=== PATIENT | male | born 1955 | race Caucasian/White ===

== ENCOUNTER → 2020-08-11 08:25 | Outpatient (BNVA) | payer OTHER, SELFPAY | PROVIDERS: Family Provider Emergency Medicine Emergency Medical Services; Referring Provider Emergency Medicine Emergency Medical Services; Visit Provider Orthopaedic Surgery | DX: M54.9 Dorsalgia, unspecified (principal); M25.559 Pain in unspecified hip; M43.16 Spondylolisthesis, lumbar region | CPT/HCPCS: 72110; 73502 ==

== ENCOUNTER → 2020-08-24 11:47 | Outpatient (BNVA) | payer OTHER, SELFPAY | PROVIDERS: Family Provider Emergency Medicine Emergency Medical Services; Visit Provider Orthopaedic Surgery | DX: Z01.812 Encounter for preprocedural laboratory examination (principal); Z20.822 Contact with and (suspected) exposure to COVID-19 | CPT/HCPCS: 87635 ==

== ENCOUNTER 2020-08-28 16:34 | Inpatient (IN) | payer OTHER, SELFPAY ==
--- NOTE | 2020-08-24 14:02 | ECG_ITS ---
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 Measurements Intervals [place] Rate: 73 P: 29 [place]: 177 QRS: 20 QRSD: 105 T: 3 QT: 365 QTc: 404 Interpretive Statements SINUS RHYTHM WITH FREQUENT SUPRAVENTRICULAR PREMATURE COMPLEXES POSSIBLE INFERIOR MYOCARDIAL INFARCTION [30 ms Q WAVE IN II/aVF], PROBABLY OLD ABNORMAL RHYTHM ECG No previous ECG available for comparison Electronically Signed On 08-27-2020 7:23:53 CDT by Melissa Valderrama M.D. [id number]
[2020-08-24 14:10] VITALS: BMI 35.2
--- NOTE | 2020-08-24 14:52 | ANES.PREANE2 ---
Pre-Anesthetic Assessment Pre-Anesthetic Assessment: Height/Weight: Height 1.68 m Weight 98.883 kg Proposed Procedure: Operation Date: 08/28/20 10:40 Proposed Procedures p PLIF L4/5 41793, 77700, 33944, 61763, 04610, 58818 M43.16(Not Applicable) - Luis Humphreys, DO Was Beta Rizwana taken within 24 hours: Yes Was Clonidine taken within 24 hours: N/A Social: Social History: No alcohol and No tobacco Exam: Pre-Anes Outpt Exam: alert, oriented x 3 and clear to auscultation bilaterally Airway: Submandibular: WNL Cervical ROM: WNL MP: 2 Dentition: Chipped Additional comments: Missing several CV/HEM: CV/HEM: CAD (stents) and HTN Metabolic: Metabolic: Hyperlipidemia and Morbid obesity Anesthetic Plan: ASA status: 3 Anesthesia: General Risk of > 500 ml blood loss (7ml/kg in children): No Data Anesthesia Cardiac Studies: No Data to Display
[2020-08-24 15:40] LABS: Basophils % 0.4 %; Eosinophils # 0.1 10^3/uL (0.0-0.8); Eosinophils % 1.5 %; Hemoglobin 15.2 g/dL (11.7-16.6); Lymphocytes % 27.4 %; Mean Corpuscular HGB Conc 34.5 g/dL (30.0-36.0); Mean Corpuscular Hemoglobin 32.7 pg (28.0-34.0); Mean Corpuscular Volume 94.6 fL (80-94); Mean Platelet Volume 11.9 fL (7.4-10.4); Monocytes # 0.7 10^3/uL (0.2-0.9); Monocytes % 9.4 %; Neutrophils # 4.49 10^3/uL (1.8-7.7); Neutrophils % 61.2 %; Nucleated Red Blood Cells % 0 %; Platelet Count 168 10^3/cmm (130-400); Red Blood Count 4.65 10^6/uL (4.1-5.3); Red Cell Distribution Width 13.5 % (12.1-15.1); White Blood Count 7.3 10^3/uL (4.0-10.0)
[2020-08-28] VITALS (15 sets, daily range): BP systolic 113–192; BP diastolic 53–84; PULSE 49–84; RESP 16–26; TEMP 36.1–36.5; O2SAT 92–96
--- NOTE | 2020-08-28 | SCC_ITS ---
Procedure Done: 1. L4/5 Interbody fusion with posterolateral fusion 2. Instrumentation L4/5 3. Cage at L4/5 4. Laminectomy L4 5. use of autograft from same incision 6. allograft 7. Bone marrow aspirate from right iliac crest 8. Computer navigation stereotactic spine Fluoroscopic guidance was provided to Dr. Humphreys by the radiology department. C-arm images of the lumbar spine were saved for the patient's permanent record. VELMA
[2020-08-28] MEDS: sodium chloride 0.9% 1,000 ML 30 ML IV (09:05)
--- NOTE | 2020-08-28 09:35 | P.ANESUD_ITS ---
Pre-Anesthetic Update Pre-Anesthetic Assessment: Date of Surgery/Procedure: 08/28/20 Preop Lorena gnosis: spondylolisthesis Proposed Procedure: Operation Date: 08/28/20 10:40 Proposed Procedures p PLIF L4/5 30605, 55374, 50087, 34648, 69515, 61682 M43.16(Not Applicable) - Luis Humphreys, DO Any changes to Pre-Anesthetic Assessment?: No Last Intake: Intake Last Liquid Date 08/27/20 Last Liquid Time 00:00 Last Solid Date 08/27/20 Last Solid Time 18:00 Vitals: Temperature 97 F L 08/28/20 08:52 Temperature Source Temporal Artery S can 08/28/20 08:52 Pulse Rate 49 L 08/28/20 08:52 Respiratory Rate 18 08/28/20 08:52 Blood Pressure 192/84 08/28/20 08:52 Blood Pressure Fallon n 120 08/28/20 08:52 Pulse Oximetry 96 08/28/20 08:52 Oxygen Delivery Me thod 08/28/20 08:52 Exam: Pre-Anes Outpt Exam: alert, oriented x 3, clear to auscultation bilaterally and regular rate & rhythm Cardiac Studies: No Data to Display
--- NOTE | 2020-08-28 10:58 | W.PM.OPSUD ---
Surgery/Procedure H&P Update DATE OF PROCEDURE: August 28, 2020 DATE H&P PERFORMED: 08/11/20 H&P UPDATE INFORMATION: I have reviewed H&P completed within last 30 days, I have examined patient prior to procedure and No changes to prior documentation PREOP DIAGNOSIS: spondylolisthesis PLANNED PROCEDURE: Operation Date: 08/28/20 10:40 Proposed Procedures p PLIF L4/5 57404, 24154, 96425, 91611, 34963, 40808 M43.16(Not Applicable) - Luis Humphreys DO
[2020-08-28] MEDS: vancomycin 1,000 MG SDV 1000 MG XX (13:01)
[2020-08-28] MEDS: heparin, porcine 1,000 unit/mL INJ 10 mL 10000 UNIT IRRIGATION (13:02)
[2020-08-28] MEDS: thrombin 5,000 unit SDV 5000 UNIT XX (14:39)
--- NOTE | 2020-08-28 15:59 | XR_ITS ---
WS: [id number] C-ARM RADIOGRAPHS lumbar spine; 1 IMAGES HISTORY: LUMBAR PAIN COMPARISON: None available. Intraoperative imaging during fusion. Posterior fusion hardware at L4-5 with interbody spacer. Only a single image submitted. XR/XR lumbar spine 1V 12847 IMPRESSION: Intraoperative imaging during posterior lumbar fusion.
--- NOTE | 2020-08-28 16:05 | PM.OP ---
Operative Report Date of procedure: August 28, 2020 Pre-op Diagnosis: spondylolisthesis L4/5 Post-op diagnosis: same Procedure Done: 1. L4/5 Interbody fusion with posterolateral fusion 2. Instrumentation L4/5 3. Cage at L4/5 4. Laminectomy L4 5. use of autograft from same incision 6. allograft 7. Bone marrow aspirate from right iliac crest 8. Computer navigation stereotactic spine Surgeon: Luis Humphreys Anesthesia: General Estimated blood loss (mL): 300 Condition: stable Disposition: PACU Procedure: 1. L4/5 Interbody fusion with posterolateral fusion 2. Instrumentation L4/5 3. Cage at L4/5 4. Laminectomy L4 5. use of autograft from same incision 6. allograft 7. Bone marrow aspirate from right iliac crest 8. Computer navigation stereotactic spine Patient is brought to the operative suite. After undergoing anesthesia, the patient had neuro monitoring attached. Patient was then placed in the prone position on the Kaleb table. All areas of impingement were well-padded. Patient was then prepped and draped in the normal sterile fashion. Skin incision was then made over the L4/5 space. Subperiosteal dissection was made out to the transverse processes of L4 and L5. Once the exposure was complete attention was then brought to placing the fiducial for the computer navigation. The 2 pins were placed into the right iliac crest. Once the pins were placed then the fiducial was attached and turned on and went to the computer navigation system. Then the C-arm was brought in and information was loaded into the computer as well this is what was used during the case to navigate the screws. Prior to placing the pedicle screws the Quikey bone marrow aspirate kit was used to aspirate bone marrow aspirate from the right iliac crest. This was done by using the sharp probe to open up the bone. Aspiration was performed and then the blunt probe was then used to dissect down to through the bone tunnel. An aspirating well drawn back a millimeter approximately 20 cc of bone marrow aspirate was used. Admixed with the allograft and autograft bone that will be used. The technique for placing the pedicle screws was to use a drill followed by the gearshift probe used for computer navigation. Followed by the ball probe to feel the superior inferior medial lateral campos of the pedicles. Then placement of the screws using computer navigation. Was done at each pedicle. Screws were placed at L4 bilaterally and L5 bilaterally. Next attention was brought to performing the laminectomy ofL L4. This was done using the high-speed bur Kerrisons and curettes. Once the lamina was removed and then attention was brought to performing a partial facetectomy on the contralateral side. This was done again using the high-speed bur curettes and Kerrisons. The ligamentum flavum was taken down bilaterally from L4 to L5. Attention was then brought to the facet on the ipsilateral side. The facet was taken down. The L5 nerve was decompressed as it passed around the L5 pedicle. The laminectomy was done for purposes of decompressing the nerve as well as placement of the cage. The L5 nerve was identified as it traversed through the L4/5 foramen. The thecal sac was identified and retracted. The L4/5 disc base was identified. Using a knife the disc base was opened. And then sequential carleen were placed. The first shaver was a 6 and the last shaver was a 10. Using a pituitary and down going curette the endplates were scraped and disc material was removed from the space. Once adequate decompression of the disc base was felt to be had. Osteoamp sponge was packed into the anterior aspect of the disc base. Then a size 10 cage from Luis Felipe was placed after packing osteoamp into the cage. While placing the cage the thecal sac and L5 nerve was protected. C arm was used to ensure that the cages placed in the appropriate position. Attention was then brought to attaching the rods to the screws placed in the L4 to L5 bilaterally. Caps were torqued into position. Locking the construct in place. Wound was copiously irrigated and then attention was brought to decorticating the facets and transverse processes laterally. Bone that was taken down from the lamina was used along with osteoamp fibers and sponges were packed into the lateral gutters along the facet joints. This was done bilaterally. Wound was then closed in a layered fashion starting with the thoracolumbar fascia. 0-stratafix was used the sub cutaneous tissue was closed with 2-0 stratafix and skin with 3-0 nylon. Glue was then used to seal the skin and a steril Silverlon dressing was applied. Patient was then placed in the supine position. The endotracheal tube was removed and patient was transferred to the PACU in stable condition.
[2020-08-28] MEDS: ondansetron 2 mg/ML SDV 2 mL 4 MG IVP (16:45)
--- NOTE | 2020-08-28 17:09 | ECG_ITS ---
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 Measurements Intervals [place] Rate: 79 P: 42 NM: 177 QRS: -6 QRSD: 109 T: -12 QT: 433 QTc: 498 Interpretive Statements SINUS RHYTHM WITH FREQUENT VENTRICULAR PREMATURE COMPLEXES IN A BIGEMINAL PATTERN LEFT VENTRICULAR HYPERTROPHY AND ST-T CHANGE [VOLTAGE CRITERIA PLUS ST/T ABNORMALITY] INFERIOR MYOCARDIAL INFARCTION [40+ ms Q WAVE AND/OR ST/T ABNORMALITY IN II/aVF], OF INDETERMINATE AGE Compared to ECG 08/24/2020 14:24:37 Ventricular premature complex(es) now present Left ventricular hypertrophy now present ST (T wave) deviation now present Myocardial infarct finding still present Electronically Signed On 09-04-2020 6:20:04 CDT by Melissa Valderrama M.D. [id number]
--- NOTE | 2020-08-28 17:14 | ANE.PACU2 ---
Inpatient post-anesthesia follow up: Airway intact: Yes Vital signs: Temperature 97.6 F Pulse Rate 76 Respiratory Rate 18 Blood Pressure 124/53 Pulse Oximetry 96 Oxygen Delivery Me thod Room Air Oxygen Flow Rate 8 Fraction of Inspir ed Oxygen Hydration adequate: Yes Nausea and vomiting: No Pain level: 3 Mental status: Baseline
--- NOTE | 2020-08-28 17:34 | P.CONIM_ITS ---
Providers/Reason For Consult Consulting Physician/Specialty*: Orthopedic Reason for Consult*: Chest pain Attending Physician: Luis Humphreys DO Primary Care Provider: Richard Forde DO History of Present Illness History of Present Illness Deven Brennan is a 65 year old male with a past medical history of CAD status post stenting x7, history of CHF, tells me that he has lost 30% of his heart function, had a negative stress test in [place] a year ago, hypertension, hyperlipidemia, extensive family history of CAD who presents to [facility] for back pain status post L4-L5 interbody fusion by Dr. Humphreys. Postoperatively on the second floor the hospital patient developed substernal chest pain radiating to down to both arms thus hospitalist team was called for consult. During my evaluation, patient is in 253-2, is at bedside, he is alert oriented x3, blood pressure 03/22/1954, pulse 76, respiratory 18, saturating 96% on room air, currently chest pain-free, he did get nitroglycerin. He tells me that in the last 6 months he has had chest pain like this before, typically relieved with nitroglycerin, he tells me that his clasp machine operator tells him that if he were to get chest pain, to take nitroglycerin and if the pain improves to not worry about it. But the pain does not improve he tells him to go to the emergency room. He saw his clasp machine operator roughly a year ago, had a stress test which was negative, but he has lost 30% of his heart. No recent c hest pain, no recent shortness of breath, he is on aspirin 325, statin. Last stent was placed in 2008. Currently no chest pain, no shortness of breath, no lightheaded, dizziness, no diaphoresis, no nausea, no vomiting. Patient does think that his chest pain might be related to anxiety Review of Systems Const: Denies: fever(s), chills, fatigue or malaise Eyes: Denies: change in vision or blurry vision ENMT: Denies: nasal congestion Card: Reports: chest pain; Denies: palpitations or edema Resp: Denies: dyspnea, productive cough, non-productive cough or wheezing GI: Denies: abdominal pain, nausea, vomiting, hematemesis, diarrhea, constipation, hematochezia or melena : Denies: flank pain, difficulty urinating, dysuria or urinary frequency Musc: Reports: back pain; Denies: neck pain Neuro: Denies: headache(s) Meds/Allergies Home Medications and Allergies Home Medications Medication Instructions Recorded Confirmed Last Taken Type aspirin 325 mg tablet 325 mg PO DAILY 08/11/20 08/28/20 08/24/20 History atorvastatin 80 mg tablet 80 mg PO DAILY 08/11/20 08/28/20 08/27/20 History lisinopril 40 mg tablet 40 mg PO DAILY 08/11/20 08/28/20 08/26/20 History metoprolol tartrate 50 mg tablet 50 mg PO DAILY 08/11/20 08/28/20 08/28/20 History multivitamin 1 tab PO DAILY 08/11/20 08/24/20 Unknown History omega-3 fatty acids 1,000 mg 1,000 mg PO DAILY 08/11/20 08/28/20 08/24/20 History capsule Prilosec OTC 20 mg PO DAILY 08/24/20 08/28/20 08/27/20 History gabapentin 100 mg PO PRN PRN 08/24/20 08/28/20 08/27/20 History Allergies Allergy/AdvReac Type Severity Reaction Status Date / Time rosuvastatin [From Crestor] Allergy Unknown unknown Verified 08/11/20 08:15 simvastatin [From Zocor] Allergy unknown Verified 08/11/20 08:15 PFSH Acute PFSH: Medical History (Updated 08/28/20 @ 17:41 by Ryan Ernandez MD) CAD (coronary artery disease) Hyperlipidemia Hypertension Systolic CHF Surgical History (Updated 08/28/20 @ 17:39 by Ryan Ernandez MD) History of coronary artery stent placement Family History (Updated 08/28/20 @ 17:39 by Ryan Ernandez MD) Father CAD (coronary artery disease) Mother Renal cell carcinoma Social History (Updated 08/28/20 @ 17:40 by Ryan Ernandez MD) Smoking and tobacco status: never smoked Alcohol intake: current Substance/Drug Use: never Vitals/I&O/Wt Last Vital Signs Temp 97.6 F 08/28/20 16:40 Pulse 76 08/28/20 16:40 Resp 18 08/28/20 16:40 BP 124/53 08/28/20 16:40 Pulse Ox 96 08/28/20 16:40 08/28/20 08/28/20 08/28/20 06:59 14:59 22:59 Intake Total 50 / 50 800 / 850 Output Total 1260 / 1260 Balance 50 / 50 -460 / -410 Physical Exam Const: COMMON NORMALS: no acute distress and patient oriented x3 HENMT: COMMON NORMALS: normocephalic HEAD & SCALP: normocephalic Eye: COMMON NORMALS: Equal, round and reactive pupils present GENERAL EYE: appearance normal, both eyes and all related structures PUPIL: Yes Equal, round and reactive pupils present Neck/C-Spine: COMMON NORMALS: full ROM, no JVD and Thyroid normal THYROID: Thyroid normal Lymph: LYMPHATIC: no lymphadenopathy noted Resp: COMMON NORMALS: normal respiratory effort, No retractions, No use of accessory muscles and clear to auscultation bilaterally AUSCULTATION: clear to auscultation bilaterally Cardio: COMMON NORMALS: no JVD, regular rate, regular rhythm, S1 normal heart sound present, S2 normal heart sound present, No gallops present (Cardio), No clicks present (Cardio) and No murmurs present (Cardio) RATE: regular rate RHYTHM: regular rhythm HEART SOUNDS: S1 normal heart sound present and S2 normal heart sound present GI: COMMON NORMALS: Normal to inspection, nondistended, normoactive bowel sounds present and Soft to palpation PALPATION: Yes Soft to palpation Back/Pelvis: OTHER: Surgical site, with drain in place Extremity: COMMON NORMALS: no pedal edema Neuro: COMMON NORMALS: patient oriented x3, CN's II-XII intact bilaterally, moves all extremities and no focal motor deficits Psych: COMMON NORMALS: mental status grossly normal, Normal thought process present and cooperative THOUGHT PROCESS: Normal thought process present Urinary Catheter Management^: Haskins: Cath Placed During This Visit: yes, but has since been removed by the nurse Urinary Catheter Date of Insertion: 08/28/20 Urinary Catheter Time of Insertion: 12:15 Date Urinary Catheter Removed: 08/28/20 Time Urinary Catheter Discontinued: 16:19 A&P Assessment and plan (1) Chest pain: -With history of CAD, 7 stents placed, CHF -Improved with nitroglycerin -Currently chest pain-free Plan: -Serial troponins, serial EKGs -Monitor for chest pain -Aspirin, statin, nitro as needed, oxygen therapy -Cardiac echocardiogram -Telemetry monitoring -TSH, mag, lipid panel CBC, CMP -Full code -Lovenox for DVT prophylaxis Status: Acute Coding Level of Care Code 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
[2020-08-28] MEDS: lactated ringers 1,000 ML 90 ML IV (17:41)
[2020-08-28] MEDS: atorvastatin 40 mg Tablet 80 MG PO (17:52)
[2020-08-28] MEDS: docusate sodium 100 mg Capsule PO (17:53)
[2020-08-28] MEDS: aspirin 325 mg Tablet PO (17:53)
[2020-08-28 18:20] LABS: Basophils % 0.2 %; Hematocrit 44.5 % (42.0-52.0); Hemoglobin 14.9 g/dL (11.7-16.6); Lymphocytes # 0.8 10^3/uL (0.8-4.8); Lymphocytes % 5.5 %; Mean Corpuscular HGB Conc 33.5 g/dL (30.0-36.0); Mean Corpuscular Hemoglobin 32.3 pg (28.0-34.0); Mean Corpuscular Volume 96.5 fL (80-94); Mean Platelet Volume 11.5 fL (7.4-10.4); Monocytes # 0.2 10^3/uL (0.2-0.9); Monocytes % 1.3 %; Neutrophils # 14.08 10^3/uL (1.8-7.7); Neutrophils % 92.4 %; Nucleated Red Blood Cells % 0 %; Platelet Count 177 10^3/cmm (130-400); Red Blood Count 4.61 10^6/uL (4.1-5.3); Red Cell Distribution Width 13.6 % (12.1-15.1); White Blood Count 15.2 10^3/uL (4.0-10.0)
[2020-08-28 18:40] LABS: Troponin(5th) Baseline 6 ng/L (0-15)
[2020-08-28 18:47] LABS: Alanine Aminotransferase 13 U/L (0-41); Albumin Level 3.9 g/dL (3.5-5.2); Alkaline Phosphatase 50 IU/L (40-130); Anion Gap 15.9 (5-19); Aspartate Amino Transferase 20 U/L (0-40); Blood Urea Nitrogen 21 mg/dL (8-23); Calcium 8.6 mg/dL (8.5-10.5); Carbon Dioxide 19 mmol/L (22-29); Chloride 108 mmol/L (98-107); Cholesterol 132 mg/dL (0-200); Creatinine Clr Calc Pharmacy 60.7032; Glomerular Filtration Rate 55.1 mL/min (90-130); Glucose 147 mg/dL (65-115); HDL Cholesterol 44 mg/dL (60-100); LDL Cholesterol Calculated 66 mg/dL (50-129); Magnesium 1.8 mg/dL (1.7-2.3); NT Pro B Type Natriuretic Pept 302 pg/mL (0-125); Osmolality Calculated 294 mOsm/kg (285-295); Potassium 3.9 mmol/L (3.5-5.1); Sodium 139 mmol/L (136-145); Thyroid Stimulating Hormone 1.41 uIU/mL (0.27-4.20); Total Bilirubin 0.8 mg/dL (0.15-1.2); Total Protein 5.9 g/dL (6.6-8.7); Triglycerides 108 mg/dL (0-150)
--- NOTE | 2020-08-28 19:09 | ECG_ITS ---
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 Measurements Intervals [place] Rate: 80 P: ME: QRS: 15 QRSD: 152 T: 156 QT: 445 QTc: 514 Interpretive Statements ATRIAL FIBRILLATION WITH ABERRANT CONDUCTION OR VENTRICULAR PREMATURE COMPLEXES INTRAVENTRICULAR CONDUCTION DELAY [130+ ms QRS DURATION] INFERIOR MYOCARDIAL INFARCTION [40+ ms Q WAVE AND/OR ST/T ABNORMALITY IN II/aVF], OF INDETERMINATE AGE Compared to ECG 08/28/2020 17:59:04 Aberrant conduction of supraventricular beat(s) now present Intraventricular conduction delay now present Sinus rhythm no longer present Left ventricular hypertrophy no longer present ST (T wave) deviation no longer present Myocardial infarct finding still present Electronically Signed On 10-08-2020 10:13:14 CDT by Melissa Valderrama M.D. [id number]
[2020-08-28 21:11] LABS: Troponin 5 2HR 34.09 ng/L (0-15)
[2020-08-28 21:16] LABS: Troponin 5 2HR Delta 28.09 ABS# (0-10)
[2020-08-28] MEDS: HYDROcodone-acetaminophen 5-325 mg Tablet PO (22:42)
[2020-08-29] VITALS (8 sets, daily range): BP systolic 112–141; BP diastolic 71–75; PULSE 67–90; RESP 15–18; TEMP 36.4–37.4; O2SAT 93–97
[2020-08-29 01:04] LABS: Troponin 5 6HR 165.6 ng/L (0-15); Troponin 5 6HR Delta 159.6 ng/L (0-12)
[2020-08-29] MEDS: acetaminophen 325 mg Tablet 650 MG PO (01:43)
[2020-08-29] MEDS: lactated ringers 1,000 ML 90 ML IV (03:34)
[2020-08-29] MEDS: clopidogrel 300 mg Tablet PO (06:04)
[2020-08-29] MEDS: heparin drip 25,000 UNIT/500 ML PREMIX 28 UNIT IV (06:05)
[2020-08-29] MEDS: heparin 5,000 unit/mL INJ 1 mL IV (06:28)
[2020-08-29 08:19] LABS: Platelet Count 171 10^3/cmm (130-400)
[2020-08-29] MEDS: aspirin 325 mg Tablet PO (08:59)
[2020-08-29] MEDS: lisinopril 20 mg Tablet 40 MG PO (08:59)
[2020-08-29] MEDS: docusate sodium 100 mg Capsule PO ×2 (08:59→19:02)
[2020-08-29] MEDS: multivitamin therapeutic Tablet 1 TAB PO (08:59)
[2020-08-29] MEDS: omega-3 fatty acids 1,000 mg Capsule 1000 MG PO (08:59)
[2020-08-29] MEDS: pantoprazole DR 40 mg Tablet PO (09:00)
[2020-08-29] MEDS: metoprolol succinate ER (24 HR) 25 mg Tablet 12.5 MG PO (09:00)
[2020-08-29] MEDS: atorvastatin 40 mg Tablet 80 MG PO (09:00)
[2020-08-29] MEDS: clopidogrel 75 mg Tablet PO (09:01)
[2020-08-29 09:30] LABS: Partial Thromboplastin Time 154.2 SECONDS (23.9-36.7)
[2020-08-29] MEDS: sodium chloride 0.9% 1,000 ML 50 ML IV (10:16)
[2020-08-29 11:23] LABS: Troponin T (5th) Once 486 ng/L (0-15)
--- NOTE | 2020-08-29 11:30 | ECG_ITS ---
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 Measurements Intervals [place] Rate: 63 P: 62 [place]: 176 QRS: 34 QRSD: 108 T: 9 QT: 401 QTc: 412 Interpretive Statements SINUS RHYTHM POSSIBLE INFERIOR MYOCARDIAL INFARCTION [30 ms Q WAVE IN II/aVF], PROBABLY OLD Compared to ECG 08/28/2020 21:08:42 Atrial fibrillation no longer present Ventricular premature complex(es) no longer present Aberrant conduction of supraventricular beat(s) no longer present Intraventricular conduction delay no longer present Myocardial infarct finding still present Electronically Signed On 09-04-2020 6:19:51 CDT by Melissa Valderrama M.D. [id number]
--- NOTE | 2020-08-29 12:29 | PC.NURSE ---
Hemovac removed using aseptic technique. Patient tolerated well, no complications.
[2020-08-29 12:53] LABS: Partial Thromboplastin Time 36.1 SECONDS (23.9-36.7)
--- NOTE | 2020-08-29 13:00 | PM.PN ---
Subjective Subjective: Interval history: This morning patient was examined, he denies any chest pain, he did have chest pain earlier on in the morning, none currently, he had elevated troponins overnight, so started on heparin drip, his back pain is a 1 out of 10 currently, drain is in place, Vitals/I&O/Wt Last Vital Signs Temp 97.8 F 08/29/20 11:48 Pulse 67 08/29/20 11:48 Resp 18 08/29/20 11:48 BP 141/74 08/29/20 11:48 Pulse Ox 97 08/29/20 11:48 08/28/20 08/29/20 08/29/20 22:59 06:59 14:59 Intake Total 1137.5 / 1187.5 1539.5 / 2727.0 1240 / 1240 Output Total 1360 / 1360 281 / 1641 40 / 40 Balance -222.5 / -172.5 1258.5 / 1086.0 1200 / 1200 Physical Exam Const: COMMON NORMALS: no acute distress and patient oriented x3 Resp: COMMON NORMALS: normal respiratory effort, No retractions, No use of accessory muscles and clear to auscultation bilaterally AUSCULTATION: clear to auscultation bilaterally Cardio: COMMON NORMALS: regular rate, regular rhythm, S1 normal heart sound present and S2 normal heart sound present RATE: regular rate RHYTHM: regular rhythm HEART SOUNDS: S1 normal heart sound present and S2 normal heart sound present GI: COMMON NORMALS: Normal to inspection, nondistended, normoactive bowel sounds present, Soft to palpation and non-tender PALPATION: Yes Soft to palpation Back/Pelvis: OTHER: Surgical site, with drain in place Extremity: COMMON NORMALS: no pedal edema Neuro: COMMON NORMALS: patient oriented x3 Psych: COMMON NORMALS: mental status grossly normal Urinary Catheter Management^: Haskins: Cath Placed During This Visit: yes, but has since been removed by the nurse Urinary Catheter Date of Insertion: 08/28/20 Urinary Catheter Time of Insertion: 12:15 Date Urinary Catheter Removed: 08/28/20 Time Urinary Catheter Discontinued: 16:19 Data : 08/29/20 07:47 08/28/20 17:42 A&P Assessment and plan (1) Chest pain: -With history of CAD, 7 stents placed, CHF -Improved with nitroglycerin -Currently chest pain-free -Creatinine 1.3 -6-hour troponin I 65, delta of 159, troponin at 10 AM was 486 -Currently no active chest pain -EKG no acute ST-T wave changes Plan: -Serial troponins, serial EKGs -Monitor for chest pain -Aspirin, statin, nitro as needed, oxygen therapy -Start on a heparin drip, Dr. 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
--- NOTE | 2020-08-29 13:04 | P.CONIM_ITS ---
Providers/Reason For Consult Consulting Physician/Specialty*: Cardiology Reason for Consult*: Non-ST elevation MN Attending Physician: Luis Humphreys DO Primary Care Provider: Richard Forde DO History of Present Illness History of Present Illness Deven Brennan is a 65 year old male past medical history significant for history of myocardial infarction status post multiple stents in the past at [facility] no record available to me, history of possible severe left ventricle dysfunction as per patient it was 30% he was told, hypertension hyperlipidemia, systolic heart failure underwent intervertebral L4-[address] Humphreys had chest pain postoperatively elevated inferolateral EKG changes and episode of atrial fibrillation with controlled heart rate. Nitroglycerin resolved the chest pain. Patient remained stable vital ward. Cardiac markers trended up and peaked at 490. Currently denies any symptoms. I have examined the patient he does not appear to be in heart failure. He denies recent anginal-like symptoms. He had a stress test 1 year ago according to him it was fine. He has been started on aspirin and heparin. Review of Systems Const: Denies: fever(s), chills, fatigue or malaise Eyes: Denies: change in vision or blurry vision ENMT: Denies: nasal congestion Card: Reports: chest pain; Denies: palpitations or edema Resp: Denies: dyspnea, productive cough, non-productive cough or wheezing GI: Denies: abdominal pain, nausea, vomiting, hematemesis, diarrhea, constipation, hematochezia or melena : Denies: flank pain, difficulty urinating, dysuria or urinary frequency Musc: Reports: back pain; Denies: neck pain Neuro: Denies: headache(s) Meds/Allergies Home Medications and Allergies Home Medications Medication Instructions Recorded Confirmed Last Taken Type aspirin 325 mg tablet 325 mg PO DAILY 08/11/20 08/28/20 08/24/20 History atorvastatin 80 mg tablet 80 mg PO DAILY 08/11/20 08/28/20 08/27/20 History lisinopril 40 mg tablet 40 mg PO DAILY 08/11/20 08/28/20 08/26/20 History metoprolol tartrate 50 mg tablet 50 mg PO DAILY 08/11/20 08/28/20 08/28/20 History multivitamin 1 tab PO DAILY 08/11/20 08/24/20 Unknown History omega-3 fatty acids 1,000 mg 1,000 mg PO DAILY 08/11/20 08/28/20 08/24/20 History capsule Prilosec OTC 20 mg PO DAILY 08/24/20 08/28/20 08/27/20 History gabapentin 100 mg PO PRN PRN 08/24/20 08/28/20 08/27/20 History hydrocodone-acetaminophen 1 - 2 tab PO .Q4-6H #40 tab 08/29/20 Unknown Rx Allergies Allergy/AdvReac Type Severity Reaction Status Date / Time rosuvastatin [From Crestor] Allergy Unknown unknown Verified 08/11/20 08:15 simvastatin [From Zocor] Allergy unknown Verified 08/11/20 08:15 Current Medications Current Medications Generic Name Dose Route Start Last Admin Trade Name Freq PRN Reason Stop Dose Admin Acetaminophen 650 mg 08/28/20 15:55 08/29/20 01:43 Acetaminophen 325 Mg Tablet PO 650 mg Q4H PRN Administration Mild Pain or fever >101.5 Hydrocodone Bitart/Acetaminophen 1 - 2 tab 08/28/20 15:55 08/28/20 22:42 Hydrocodone-Acetaminophen 5-325 Mg Tablet PO 1 tab Q4H PRN Administration MODERATE TO SEVERE PAIN Aspirin 325 mg 08/29/20 09:00 08/29/20 08:59 Aspirin 325 Mg Tablet PO 325 mg DAILY KERRIE Administration Atorvastatin Calcium 80 mg 08/29/20 09:00 08/29/20 09:00 Atorvastatin 40 Mg Tablet PO 80 mg DAILY KERRIE Administration Clopidogrel Bisulfate 75 mg 08/29/20 09:00 08/29/20 09:01 Clopidogrel 75 Mg Tablet PO 75 mg DAILY KERRIE Administration Docusate Sodium 100 mg 08/28/20 18:00 08/29/20 08:59 Docusate Sodium 100 Mg Capsule PO 100 mg BID KERRIE Administration Heparin Sodium (Beef Lung) 0 unit 08/29/20 05:29 08/29/20 06:28 Heparin 5,000 Unit/Ml Inj 1 Ml IV 5,000 unit PRN PRN Administration Heparin weight-base protocol Protocol Heparin Sodium/Sodium Chloride 25,000 unit in 500 mls @ 0 mls/hr 08/29/20 05:30 08/29/20 06:05 Heparin Drip IV 14.16 unit/kg/hr .Q0M KERRIE 28 mls/hr Administration Protocol Per Protocol Sodium Chloride 1,000 mls @ 50 mls/hr 08/29/20 10:00 08/29/20 10:16 Sodium Chloride 0.9% IV 50 mls/hr .Q20H KERRIE Administration Lisinopril 40 mg 08/29/20 09:00 08/29/20 08:59 Lisinopril 20 Mg Tablet PO 40 mg DAILY KERRIE Administration Metoprolol Succinate 12.5 mg 08/29/20 09:00 08/29/20 09:00 Metoprolol Succinate Er (24 Hr) 25 Mg Tablet PO 12.5 mg DAILY KERRIE Administration Multivitamins Therapeutic 1 tab 08/29/20 09:00 08/29/20 08:59 Multivitamin Therapeutic Tablet PO 1 tab DAILY KERRIE Administration Ufcwf-[id number]-Whje Ethyl Esters 1,000 mg 08/29/20 09:00 08/29/20 08:59 [place]-3 Fatty Acids 1,000 Mg Capsule PO 1,000 mg DAILY KERRIE Administration Pantoprazole Sodium 40 mg 08/29/20 09:00 08/29/20 09:[address] 40 Mg Tablet PO 40 mg DAILY KERRIE Administration PFSH Acute PFSH: Medical History (Updated 08/29/20 @ 13:26 by Akash Huerta MD) CAD (coronary artery disease) Hyperlipidemia Hypertension Systolic CHF Surgical History (Updated 08/28/20 @ 17:39 by Ryan Ernandez MD) History of coronary artery stent placement Family History (Updated 08/28/20 @ 17:39 by Ryan Ernandez MD) Father CAD (coronary artery disease) Mother Renal cell carcinoma Social History (Updated 08/28/20 @ 17:40 by Ryan Ernandez MD) Smoking and tobacco status: never smoked Alcohol intake: current Substance/Drug Use: never Vitals/I&O/Wt Last Vital Signs Temp 97.8 F 08/29/20 11:48 Pulse 67 08/29/20 11:48 Resp 18 08/29/20 11:48 BP 141/74 08/29/20 11:48 Pulse Ox 97 08/29/20 11:48 08/28/20 08/29/20 08/29/20 22:59 06:59 14:59 Intake Total 1137.5 / 1187.5 1539.5 / 2727.0 1240 / 1240 Output Total 1360 / 1360 281 / 1641 40 / 40 Balance -222.5 / -172.5 1258.5 / 1086.0 1200 / 1200 Physical Exam Narrative: EXAM NARRATIVE: GENERAL: Patient is alert, awake and oriented x3. Sitting in the bed with spinal wound VAC NECK: No jugular vein distension. HEENT: No cyanosis. No icterus. No pallor. HEART: Regular S1 and S2. No murmur, rub or gallop. LUNGS: Clear to auscultate bilaterally. ABDOMEN: Soft, nontender and nondistended. Positive bowel sounds. No guarding, rebound or tenderness. CENTRAL NERVOUS SYSTEM: Grossly nonfocal. EXTREMITIES: Lower extremities without edema bilaterally. Urinary Catheter Management^: Haskins: Cath Placed During This Visit: yes, but has since been removed by the nurse Urinary Catheter Date of Insertion: 08/28/20 Urinary Catheter Time of Insertion: 12:15 Date Urinary Catheter Removed: 08/28/20 Time Urinary Catheter Discontinued: 16:19 Data Labs: Other Labs: Twelve-lead EKG showed sinus rhythm normal axis old inferior wall myocardial infarction but no significant ST?T changes suggestive of ischemia noted. interpretation of EKG from today at 11 AM A&P Assessment and plan (1) NSTEMI (non-ST elevated myocardial infarction): Patient has been depressed non-ST elevation MN. He has prior history of multiple stents and severely depressed LV function. Since he is chest pain-free and vital ward stable at this point we will treat him conservatively including continuing of IV heparin aspirin statin beta-madi isosorbide mononitrate and once allowed by orthopedics would like to add clopidogrel. Once healed from surgery may be in couple of weeks plan to perform left heart cath. We will ask for echocardiogram to assess LV function and or any new wall motion abnormality. Status: Acute (2) Systolic CHF: Appear to be well compensated , continue current regimen Status: Acute Qualifiers: Heart failure chronicity: chronic Qualified Code(s): I50.22 - Chronic systolic (congestive) heart failure (3) Hypertension: Controlled continue to monitor Status: Acute Qualifiers: Hypertension type: essential hypertension Qualified Code(s): I10 - Essential (primary) hypertension (4) Hyperlipidemia: Continue statin. Status: Acute Qualifiers: Hyperlipidemia type: other hyperlipidemia Qualified Code(s): E78.49 - Other hyperlipidemia Consult Attestations Medical Necessity Statement: patient require continuation of hospitalization for above defined care Coding Level of Care Code New Pt Acute Editing Clerk for Chg Fwd Patient Type New History Detailed Exam Detailed Medical Decision Making Moderate Complexity Diagnoses NSTEMI (non-ST elevated myocardial infarction) I21.4 Systolic CHF I50.22 Heart failure chronicity: chronic Hypertension I10 Hypertension type: essential hypertension Hyperlipidemia E78.49 Hyperlipidemia type: other hyperlipidemia
--- NOTE | 2020-08-29 13:28 | PC.CHAP ---
Pastoral Care Encounter/Spiritual Assessment Type of Contact [] Declined caseworker visit [] Patient/Family/Request visit [] Outpatient visit [] Follow-up visit [] Physician referral [] Code/Alert [X] Routine visit [] Staff referral [] Actively dying [] Patient sleeping [] Family support [] [] Out of room [] Palliative care [] [] Receiving care in room [] Pre-surgical visit [] Trauma [] Long length of stay [] ICU visit [] Other: Relational/Emotional Strength [] Patient feels connected with others/family/visitors/staff [] Distress [] Loneliness/isolation [] Abandonment Spirituality of Patient [] Person of Monet [] Attends Episcopal of their [place] [] Believes in Prayer [] Reads Bible or Denominational materials [] There are Spiritual issues to be addressed Biomathematician Interventions [] Prayer [] Active listening [] Non-anxious presence [] Spiritual/emotional support [] Crisis/trauma care [] Spiritual counseling [] Bereavement support [] Provided bereavement packet [] Provided Bible/devotional materials [] Provided toy/stuffed animal, coloring book to patient or family member [] Provided Communion [] Anointing/Metter [] Salvation [] Completed spiritual assessment [] Other: Impact on Illness or Injury [] Angry [] Fearful [] Anxious [] Often cries [] Exhaustion [] Unable to work [] Unable to attend mu-ism [] Unable to walk/stand [] Unable to read [] Unable to drive [] Unable to eat/drink [] Unable to sleep [] Unable to be with family [] Patient intubated [] Other: Summary Time spent with patient
[2020-08-29] MEDS: isosorbide mononitrate ER 30 mg Tablet PO (13:57)
[2020-08-29] MEDS: HYDROcodone-acetaminophen 5-325 mg Tablet PO ×3 (13:57→22:55)
--- NOTE | 2020-08-29 17:33 | USCV_ITS ---
Deven Brennan Age: 65 Gender: M : 1955 Exam Date: 08/29/2020 09:12 Ordering Phys: Ryan Ernandez MD Technologist: Lisa Mays Exam Location: [facility] [place] Indication: chest pain BP: 133 / 71 HR: 78 Rhythm: Atrial fibrillation Technical Quality: Fair MEASUREMENTS (Male / Female) Normal Values 2D ECHO LV Diastolic Diameter PLAX 4.9 cm 4.2 - 5.9 / 3.9 - 5.3 cm LV Systolic Diameter PLAX 3.4 cm LV Chamber Size 4.2 cm IVS Diastolic Thickness 1.4 cm 0.6 - 1.0 / 0.6 - 0.9 cm IVS Systolic Thickness 2.2 cm LVPW Diastolic Thickness 1.1 cm 0.6 - 1.0 / 0.6 - 0.9 cm LVPW Systolic Thickness 1.1 cm RV Chamber Size 2.4 cm LVOT Diameter 2.1 cm LV Ejection Fraction 2D Teich 58.9 % LV Ejection Fraction MOD 2C 56.9 % LV Ejection Fraction 2C AL 55.8 % LA Diameter 2.5 cm LA Width 3.0 cm LA Height 4.7 cm RA Width 2.3 cm RA Height 3.8 cm Aorta at Sinotubular Diameter 2.5 cm M-MODE LV Diastolic Diameter MM 6.1 cm 4.2 - 5.9 / 3.9 - 5.3 cm LV Systolic Diameter MM 4.1 cm LV Ejection Fraction MM Teich 60.6 % IVS Diastolic Thickness MM 1.3 cm 0.6 - 1.0 / 0.6 - 0.9 cm IVS Systolic Thickness MM 1.7 cm LVPW Diastolic Thickness MM 1.1 cm 0.6 - 1.0 / 0.6 - 0.9 cm LVPW Systolic Thickness MM 1.6 cm RV Diastolic Diameter MM 1.2 cm Aortic Annulus Diameter 3.8 cm LA Ao Ratio MM 0.9 MV E Point Septal Separation 0.6 cm DOPPLER AV Peak Velocity 134.0 cm/s LVOT Peak Velocity 117.0 cm/s AV Area Cont Eq vti 2.9 cm squared AV Area Cont Eq pk 2.9 cm squared MV Area PHT 5.6 cm squared MV E' Velocity 128.0 cm/s TV Peak E Velocity 103.0 cm/s Right Atrial Pressure 3.0 mmHg PV Peak Velocity 95.0 cm/s RV Acceleration Time 0.1 s RV Ejection Time 0.3 s RV AcT/ET 0.4 FINDINGS Left Ventricle Normal left ventricular cavity size. Normal left ventricular systolic function. No regional wall motion abnormalities. Left ventricular ejection fraction is estimated at 60 %. Grade II/IV diastolic dysfunction, moderately elevated filling pressures. Right Ventricle The right ventricle is normal in size and function. RVSP could not be calculated due to incomplete tricuspid regurgitation velocity profile. Right Atrium The right atrium is normal in size. Left Atrium The left atrium is normal in size. Mitral Valve Moderately thickened mitral valve. No mitral valve stenosis. Trace mitral valve regurgitation. Aortic Valve Moderate aortic valve calcification. No aortic valve stenosis. Trace aortic valve regurgitation. Tricuspid Valve Mild tricuspid valve regurgitation. Pulmonic Valve Structurally normal pulmonic valve without significant stenosis. There is no pulmonic regurgitation. Pericardium Normal pericardium without effusion. Aorta Normal ascending aorta dimension. CONCLUSIONS 1-Normal left ventricular cavity size. Normal left ventricular systolic function. No regional wall motion abnormalities. Left ventricular ejection fraction is estimated at 60 %. Grade II/IV diastolic dysfunction, moderately elevated filling pressures. 2-The right ventricle is normal in size and function. RVSP could not be calculated due to incomplete tricuspid regurgitation velocity profile. 3-Moderately thickened mitral valve. No mitral valve stenosis. Trace mitral valve regurgitation. 4-Moderate aortic valve calcification. No aortic valve stenosis. Trace aortic valve regurgitation. 5-Mild tricuspid valve regurgitation. 6-There is no pericardial effusion. 7-There are no prior echocardiogram studies to compare. Akash Huerta MD (Electronically Signed) Final Date: 29 August 2020 13:42 S
[2020-08-29 19:20] LABS: Troponin T (5th) Once 477 ng/L (0-15)
--- NOTE | 2020-08-29 20:03 | PC.NURSE ---
Received report from SHADI Biggs. Patient is lying in bed. Continues to c/o pain to low back due to recent surgery 09/05. Patient reports just receiving dose of pain medication and is waiting for them to work . Discussed plan for the evening and need for lab draws due to heparin drip running presently. Patient verbalized complete understanding.
[2020-08-29 21:26] LABS: Partial Thromboplastin Time 63.6 SECONDS (23.9-36.7)
--- NOTE | 2020-08-29 21:50 | PC.NURSE ---
Current PTT is 63.6. Therapeutic range no change in rate. Next PTT due at 0400
[2020-08-30 00:17] VITALS: BP 101/47; PULSE 97
[2020-08-30 00:24] LABS: Troponin T (5th) Once 422 ng/L (0-15)
[2020-08-30] MEDS: heparin drip 25,000 UNIT/500 ML PREMIX 28 UNIT IV (01:30)
[2020-08-30 03:41] VITALS: BP 104/50; PULSE 75; RESP 18; TEMP 36.8; O2SAT 93
[2020-08-30] MEDS: HYDROcodone-acetaminophen 5-325 mg Tablet PO ×2 (04:21→09:42)
[2020-08-30] MEDS: sodium chloride 0.9% 1,000 ML 50 ML IV (04:22)
[2020-08-30 05:31] VITALS: PULSE 88
--- NOTE | 2020-08-30 06:00 | ECG_ITS ---
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
[2020-08-30 06:25] LABS: Basophils % 0.1 %; Hematocrit 35.7 % (42.0-52.0); Hemoglobin 11.7 g/dL (11.7-16.6); Lymphocytes # 1.1 10^3/uL (0.8-4.8); Mean Corpuscular HGB Conc 32.8 g/dL (30.0-36.0); Mean Corpuscular Hemoglobin 32.3 pg (28.0-34.0); Mean Corpuscular Volume 98.6 fL (80-94); Mean Platelet Volume 11.6 fL (7.4-10.4); Monocytes # 1.4 10^3/uL (0.2-0.9); Monocytes % 9.4 %; Neutrophils # 12.67 10^3/uL (1.8-7.7); Neutrophils % 83.1 %; Nucleated Red Blood Cells % 0 %; Platelet Count 146 10^3/cmm (130-400); Red Blood Count 3.62 10^6/uL (4.1-5.3); Red Cell Distribution Width 14.1 % (12.1-15.1); White Blood Count 15.3 10^3/uL (4.0-10.0)
[2020-08-30 06:49] LABS: Troponin T (5th) Once 341 ng/L (0-15)
[2020-08-30 06:51] LABS: INR 1.21 (0.8-1.2)
[2020-08-30 07:02] LABS: Partial Thromboplastin Time 128.3 SECONDS (23.9-36.7)
[2020-08-30 07:37] LABS: Alanine Aminotransferase 11 U/L (0-41); Albumin Level 3.6 g/dL (3.5-5.2); Alkaline Phosphatase 40 IU/L (40-130); Anion Gap 14.4 (5-19); Aspartate Amino Transferase 47 U/L (0-40); Blood Urea Nitrogen 20 mg/dL (8-23); Calcium 8.4 mg/dL (8.5-10.5); Carbon Dioxide 23 mmol/L (22-29); Chloride 103 mmol/L (98-107); Glomerular Filtration Rate 84.2 mL/min (90-130); Glucose 116 mg/dL (65-115); NT Pro B Type Natriuretic Pept 641 pg/mL (0-125); Osmolality Calculated 286 mOsm/kg (285-295); Phosphorus 2.2 mg/dL (2.5-4.5); Potassium 4.4 mmol/L (3.5-5.1); Sodium 136 mmol/L (136-145); Total Bilirubin 1.1 mg/dL (0.15-1.2); Total Protein 5.6 g/dL (6.6-8.7)
[2020-08-30 09:26] VITALS: BP 130/76; PULSE 76; RESP 15; TEMP 36.8; O2SAT 96
[2020-08-30] MEDS: FUROsemide 10 mg/mL SDV 4mL 40 MG IVP (09:26)
[2020-08-30] MEDS: isosorbide mononitrate ER 30 mg Tablet PO (09:38)
[2020-08-30] MEDS: omega-3 fatty acids 1,000 mg Capsule 1000 MG PO (09:38)
[2020-08-30] MEDS: atorvastatin 40 mg Tablet 80 MG PO (09:38)
[2020-08-30] MEDS: docusate sodium 100 mg Capsule PO (09:38)
[2020-08-30] MEDS: aspirin 325 mg Tablet PO (09:38)
[2020-08-30] MEDS: multivitamin therapeutic Tablet 1 TAB PO (09:38)
[2020-08-30] MEDS: metoprolol succinate ER (24 HR) 25 mg Tablet 12.5 MG PO (09:38)
[2020-08-30] MEDS: pantoprazole DR 40 mg Tablet PO (09:38)
[2020-08-30] MEDS: clopidogrel 75 mg Tablet PO (09:43)
--- NOTE | 2020-08-30 11:07 | P.PN_ITS ---
Subjective Subjective: Interval history: pain controlled Vitals/I&O/Wt Last Vital Signs Temp 98.3 F 08/30/20 09:26 Pulse 76 08/30/20 09:26 Resp 15 08/30/20 09:26 BP 130/76 08/30/20 09:26 Pulse Ox 96 08/30/20 09:26 08/29/20 08/30/20 08/30/20 22:59 06:59 14:59 Intake Total 669.467 / 2385.467 1145.533 / 3531.000 1663.333 / 1663.333 Output Total 800 / 840 Balance -130.533 / 3088.514 6153.533 / 2691.000 1663.333 / 1663.333 Physical Exam Narrative: EXAM NARRATIVE: dresssing CDI Urinary Catheter Management^: Haskins: Cath Placed During This Visit: yes, but has since been removed by the nurse Urinary Catheter Date of Insertion: 08/28/20 Urinary Catheter Time of Insertion: 12:15 Date Urinary Catheter Removed: 08/28/20 Time Urinary Catheter Discontinued: 16:19 Data : 08/30/20 05:46 08/30/20 05:46 A&P Assessment and plan (1) Spondylolisthesis at L4-L5 level: POD#2 Status: Acute Attestations Medical Necessity Statement*: OK to D/C today if OK with Cardiology Coding Level of Care Code Acute Heading Machine Operator for Riya Cowart Diagnoses Spondylolisthesis at L4-L5 level M43.16
--- NOTE | 2020-08-30 13:47 | PM.DCS ---
Discharge Providers Date of Admission: 08/28/20 16:34 Date of Discharge: August 30, 2020 Attending Provider at Admission: Luis Humphreys DO Attending Provider at Discharge: Ryan Ernandez MD Primary Care Provider: Richard Forde DO Diagnoses at Discharge Discharge Diagnosis (1) Spondylolisthesis at L4-L5 level: Status: Acute Reason for Visit Reason for Visit: PLIF L4/5 17448, 16263, 54497, 11320, 38154, 93162 Hospital Course Hospital Course Deven Brennan is a 65 year old male with a past medical history of CAD status post stenting x7, history of CHF, tells me that he has lost 30% of his heart function, had a negative stress test in [place] a year ago, hypertension, hyperlipidemia, extensive family history of CAD who presents to [facility] for back pain status post L4-L5 interbody fusion by Dr. Humphreys. Postoperatively on the second floor the hospital patient developed substernal chest pain radiating to down to both arms thus hospitalist team was called for consult. Chest pain, NSTEMI, improving nitroglycerin, with positive troponins as high as 422, trending down to 341, positive delta, EKG no acute ST-T wave changes, managed with aspirin, Plavix, statin, Imdur, heparin drip, cardiology was consulted. Echocardiogram showed an EF of 60%, grade 2 out of 4 diastolic dysfunction, no regional wall motion abnormalities. Patient remained chest pain-free, troponins tended downwards, no significant telemetry events, remained asymptomatic. After discussion with cardiology and surgery, given bleeding risk after lumbar surgery associated with cardiac catheterization and heparin products given during procedure, decision was made to delay coronary angiogram for at least 2 weeks. Patient was well advised of this, advised of the risks and benefits, he voiced understanding, all questions answered, agreed to proceed with plan. For now we will medically manage him, with aspirin, statin, Plavix, Imdur, metoprolol. Patient was advised that if he were to have any recurrent chest pain take nitroglycerin and go immediately to emergency room or call 911. Follow with cardiology with 2 weeks for decision to pursue coronary angiogram. As we are discharging him on dual antiplatelet therapy, and with his recent had lumbar surgery, he should monitor for sudden onset of worsening back pain or back swelling, as this could be sign of bleeding in the surgical site, if so go to the emergency room or follow-up with Dr. Humphreys. Physical Exam Const: COMMON NORMALS: no acute distress and patient oriented x3 Resp: COMMON NORMALS: normal respiratory effort, No retractions, No use of accessory muscles and clear to auscultation bilaterally AUSCULTATION: clear to auscultation bilaterally Cardio: COMMON NORMALS: regular rate, regular rhythm, S1 normal heart sound present and S2 normal heart sound present RATE: regular rate RHYTHM: regular rhythm HEART SOUNDS: S1 normal heart sound present and S2 normal heart sound present GI: COMMON NORMALS: Normal to inspection, nondistended, normoactive bowel sounds present, Soft to palpation and non-tender PALPATION: Yes Soft to palpation Extremity: COMMON NORMALS: no pedal edema Neuro: COMMON NORMALS: patient oriented x3 Psych: COMMON NORMALS: mental status grossly normal Urinary Catheter Management^: Haskins: Cath Placed During This Visit: yes, but has since been removed by the nurse Urinary Catheter Date of Insertion: 08/28/20 Urinary Catheter Time of Insertion: 12:15 Date Urinary Catheter Removed: 08/28/20 Time Urinary Catheter Discontinued: 16:19 Discharge Data Data Completed and Pending: Completed Studies During Hospitalization Category Date Time Status CV. echo complete * [id number] Routine Ultrasound 08/29/20 17:33 Completed Pending at discharge Category Date Time Status XR lumbar spine 1 V [id number] Routine Exams 08/28/20 15:59 Taken Complete Blood Co unt w/Auto AM LABS Lab 08/31/20 04:00 Ordered Complete Blood Co unt w/Auto AM LABS Lab 09/01/20 04:00 Ordered Comprehensive Met abolic Panel AM LA BS Lab 08/31/20 04:00 Ordered Comprehensive Met abolic Panel AM LA BS Lab 09/01/20 04:00 Ordered Magnesium AM LABS Lab 08/31/20 04:00 Ordered Magnesium AM LABS Lab 09/01/20 04:00 Ordered NT Pro B Type Evie riuretic Pept QAM Lab 08/31/20 06:00 Ordered NT Pro B Type Evie riuretic Pept QAM Lab 09/01/20 06:00 Ordered Phosphorus AM LAB S Lab 08/31/20 04:00 Ordered Phosphorus AM LAB S Lab 09/01/20 04:00 Ordered Platelet Count Q2 D Lab 08/31/20 04:00 Ordered Platelet Count Q2 D Lab 09/02/20 04:00 Ordered Prothrombin Time INR AM LABS Lab 08/31/20 04:00 Ordered Prothrombin Time INR AM LABS Lab 09/01/20 04:00 Ordered Labs from last 24 hours 08/30/20 08/30/20 08/30/20 05:46 05:46 05:46 WBC 15.3 H RBC 3.62 L Hgb 11.7 Hct 35.7 L MCV 98.6 H MCH 32.3 MCHC 32.8 RDW 14.1 Plt Count 146 MPV 11.6 H Neut % (Auto) 83.1 Lymph % (Auto) 7.0 Cedar % (Auto) 9.4 Eos % (Auto) 0.0 Baso % (Auto) 0.1 Neut # (Auto) 12.67 H Lymph # (Auto) 1.1 Cedar # (Auto) 1.4 H Eos # (Auto) 0.0 Baso # (Auto) 0.0 Nucleated RBC % (a uto) 0 Nucleated RBCs # 0.0 PT 15.60 H INR 1.21 H APTT 128.3 H D Sodium 136 Potassium 4.4 Chloride 103 Carbon Dioxide 23 Anion Gap 14.4 BUN 20 Creatinine 0.9 GFR Calculation 84.2 L Glucose 116 H Calculated Osmolal ity 286 Calcium 8.4 L Phosphorus 2.2 L Magnesium 2.0 Total Bilirubin 1.1 AST 47 H ALT 11 Alkaline Phosphata se 40 Troponin T Gen 5 n g/L NT-Pro-B Natriuret Pep 641 H Total Protein 5.6 L Albumin 3.6 Globulin 2.0 08/30/20 08/29/20 08/29/20 05:46 23:52 21:06 WBC RBC Hgb Hct MCV MCH MCHC RDW Plt Count MPV Neut % (Auto) Lymph % (Auto) Cedar % (Auto) Eos % (Auto) Baso % (Auto) Neut # (Auto) Lymph # (Auto) Cedar # (Auto) Eos # (Auto) Baso # (Auto) Nucleated RBC % (a uto) Nucleated RBCs # PT INR APTT 63.6 H D Sodium Potassium Chloride Carbon Dioxide Anion Gap BUN Creatinine GFR Calculation Glucose Calculated Osmolal ity Calcium Phosphorus Magnesium Total Bilirubin AST ALT Alkaline Phosphata se Troponin T Gen 5 n g/L 341 H* 422 H* NT-Pro-B Natriuret Pep Total Protein Albumin Globulin 08/29/20 18:35 WBC RBC Hgb Hct MCV MCH MCHC RDW Plt Count MPV Neut % (Auto) Lymph % (Auto) Cedar % (Auto) Eos % (Auto) Baso % (Auto) Neut # (Auto) Lymph # (Auto) Cedar # (Auto) Eos # (Auto) Baso # (Auto) Nucleated RBC % (a uto) Nucleated RBCs # PT INR APTT Sodium Potassium Chloride Carbon Dioxide Anion Gap BUN Creatinine GFR Calculation Glucose Calculated Osmolal ity Calcium Phosphorus Magnesium Total Bilirubin AST ALT Alkaline Phosphata se Troponin T Gen 5 n g/L 477 H* NT-Pro-B Natriuret Pep Total Protein Albumin Globulin Vitals: Last Vital Signs Temp 98.3 F 08/30/20 09:26 Pulse 76 08/30/20 09:26 Resp 15 08/30/20 09:26 BP 130/76 08/30/20 09:26 Pulse Ox 96 08/30/20 09:26 Discharge Plan Discharge Patient Disposition: Home Condition: Stable Prescriptions: New hydrocodone-acetaminophen 5-325 mg tablet 1 - 2 tab PO .Q4-6H Qty: 40 RF: 0 isosorbide mononitrate 30 mg Tablet Extended Release 24 Hr 30 mg PO DAILY 30 Days Qty: 30 RF: 0 clopidogrel 75 mg Tablet 75 mg PO DAILY 30 Days Qty: 30 RF: 0 aspirin 81 mg Tablet,Delayed Release (Dr/Ec) 81 mg PO DAILY 30 Days Qty: 30 RF: 0 nitroglycerin 0.4 mg Tablet, Sublingual 0.4 mg sublingual Q5M PRN (Reason: Chest Pain) 30 Days Qty: 30 RF: 0 metoprolol succinate 25 mg Tablet Extended Release 24 Hr 12.5 mg PO DAILY 30 Days Qty: 30 RF: 0 Continued atorvastatin [Lipitor] 80 mg tablet 80 mg PO DAILY RF: 0 lisinopril 40 mg tablet 40 mg PO DAILY RF: 0 omega-3 fatty acids [Fish Oil Concentrate] 1,000 mg capsule 1,000 mg PO DAILY RF: 0 multivitamin Tablet 1 tab PO DAILY RF: 0 gabapentin 100 mg Capsule 100 mg PO PRN PRN (Reason: Pain) RF: 0 Prilosec OTC 20 mg PO DAILY RF: 0 Discontinued metoprolol tartrate 50 mg tablet 50 mg PO DAILY RF: 0 aspirin 325 mg tablet 325 mg PO DAILY RF: 0 Discharge Orders: Discharge Order (Routine); Ordered 08/29/20 Ordered By: Luis Humphreys Referrals: Luis Humphreys DO [Physician] - 1 week Akash Huerta MD [Physician] - 2 weeks Discharge Diet: Advance as tolerated and Cardiac Discharge Activity: Limit activity as instructed Patient Instructions: Hydrocodone/Acetaminophen (By mouth), Transthoracic Echocardiogram (DC), Lumbar Spinal Fusion (GEN), Chest Pain Stoplight, Opioid Safety Activity Restrictions/Additional Instructions: Thank you for [facility] for your care! The following is a list of instructions, from your provider, to follow upon your discharge to ensure you have the optimal recovery from your recent injury orsurgery. Follow-up care is a monteiro part of your treatment and safety. Be sure to make and go to all appointments, and call your doctor if you are having problems. If you do not already have a follow-up appointment made, call Dr. Humphreys office in the next 1-3 days to make follow up appointment for 1 weeks at [phone]. It is also a good idea to know your test results and keep a list of the medicines you take. Medications will be prescribed for you at your provider's discretion. These medications are to be used as instructed; if they are taken more often that prescribed they will not be refilled early and in most cases will not be refilled at all. > When a refill is needed,you should contact john german 2-3 business days before your prescription runs out. Medications will NOT be refilled by conservation enforcement officer providers after hours! > Many pain medications contain Tylenol (Acetaminophen). Do not consume more than 4,000 mg of Tylenol per day in total with any combination ofmedications. > Pain medications can cause constipation. Please use an over the counter stool softener as directed, while taking pain medications. Consulty our local pharmacist with questions or recommendations on stool softeners. If constipation persists, contact our office or your primary care provider. > While under our care,you are not to receive pain medications or other controlled substances from any other provider unless our office is notified and approves. Any attempts to do so will result in refusal to prescribe any further pain medications and possible dismissal from our practice. ? ? Showering is permitted, however we ask that you do not take a bath, sit in a whirlpool / Jacuzzi, or go swimming for 1 month., lt wilt be necessary for you to cover your wound/dressing with plastic and tape to keep it dry. ? Walking is essential for the healing process after surgery. We would like you to slowly advance your walking. This should be done on relatively flat clear ground (inside or out) or can be done on a treadmill. Remember this goal does not have to happen all at once, slowly increase your distance and duration. This can be broken into more more than one walk per day as tolerated. Patients who walk as directed after surgery rarely require Physical Therapy. In the unlikely event this issue arises your provider will direct hospital staff to make the appropriate arrangements. ? No lifting over 5 pounds {a gallon of milk) or bending/twisting until further notice. Each of these activities places an unnecessary amount of stress onto the body and can impede the delicate healing process. > Instead of bending at the waist, keep your back straight and bend at the knees. > Instead of twisting your torso, keep your back straight and turn your entire body with your feet. ? You may sleep in any position which makes you comfortable. Many patients find comfort sleeping in a reclining chair. It is not abnormal to have difficulty sleeping for the first several weeks following your surgery. We recommend trying Benadry! or Tylenol PM as directed to help with your sleeping difficulties. Both medications are over the counter and available withoutprescription. ? NO SMOKING!!! Smoking dramatically increases the probability of developing postoperative wound infections. ? Common complaints after lumbar and/or thoracic spine surgery include, but are not limited to: numbness and/or tingling in the legs, pain around the incision and surrounding tissues, muscle spasms, or stiffness of the middle to low back. Contact our office if these symptoms persist or if an acute change occurs. ? No driving for the first 3-5days, and not while taking narcotics [] until seen at your follow-up appointment and cleared. There are no restrictions for riding on short trips, however if you take a longer trip, arrangements should be made to make regular stops to get out of the vehicle and stretch . ? Swelling is an unfortunate event that will take place with any surgery and is the primary source of your postoperative discomfort. While walking and regular approved activities helps control inflammation, there are additional steps you can take to minimizeswelling. > Place ice over the surgical site and surrounding tissue for twenty minutes, followed by applying a low/medium heat (heating pad) for an additional twenty minutes every 1-2 hours as needed for painrelief. > You may use of over the counter anti-inflammatory medications (Ibuprofen, Motrin, Aleve, Advil, etc) as directed on the package label. These types of medicines wm significantly reduce the amount of discomfort you experience after surgery from swelling. It should be noted that if you have and allergy to any of these medications, or a history of ulcers or kidney disease you should consult you primary care provider prior to starting these medications. -Please take aspirin, Plavix, statin, metoprolol, Imdur as prescribed -If you have chest pain please go to the emergency room -Take nitro for chest pain -Follow-up with Dr. Durham in 2 weeks Discharge Attestations Time Spent in Discharge Care*: greater than 30 min Quality Metrics Clinical Quality Measures During this hospital stay, did patient experience: None Coding Level of Care Code Acute [facility] FW LA note Diagnoses Spondylolisthesis at L4-L5 level M43.16
--- NOTE | 2020-08-30 13:58 | PM.PN ---
Subjective Subjective: Interval history: Denies any complaint gluing chest pain shortness of breath orthopnea. Cardiac markers trended down from 400 Vitals/I&O/Wt Last Vital Signs Temp 98.3 F 08/30/20 09:26 Pulse 76 08/30/20 09:26 Resp 15 08/30/20 09:26 BP 130/76 08/30/20 09:26 Pulse Ox 96 08/30/20 09:26 08/29/20 08/30/20 08/30/20 22:59 06:59 14:59 Intake Total 669.467 / 2385.467 1145.533 / 3531.000 1740.000 / 1740.000 Output Total 800 / 840 900 / 900 Balance -130.533 / 5293.856 8167.533 / 2691.000 840.000 / 840.000 Physical Exam Narrative: EXAM NARRATIVE: GENERAL: Patient is alert, awake and oriented x3. Laying in the bed without any problem. Wound VAC removed NECK: No jugular vein distension. HEENT: No cyanosis. No icterus. No pallor. HEART: Regular S1 and S2. No murmur, rub or gallop. LUNGS: Clear to auscultate bilaterally. ABDOMEN: Soft, nontender and nondistended. Positive bowel sounds. No guarding, rebound or tenderness. CENTRAL NERVOUS SYSTEM: Grossly nonfocal. EXTREMITIES: Lower extremities without edema bilaterally. Urinary Catheter Management^: Haskins: Cath Placed During This Visit: yes, but has since been removed by the nurse Urinary Catheter Date of Insertion: 08/28/20 Urinary Catheter Time of Insertion: 12:15 Date Urinary Catheter Removed: 08/28/20 Time Urinary Catheter Discontinued: 16:19 Data : 08/30/20 05:46 08/30/20 05:46 A&P Assessment and plan (1) NSTEMI (non-ST elevated myocardial infarction): Discussed the case. Medicine who has discussed the case with orthopedics. Orthopedics think that currently patient is not safe for left heart cath due to possible bleeding secondary to surgery. At this point we will continue to manage him medically with aspirin statin beta-madi isosorbide mononitrate and Plavix. We will see him back in our clinic in 7 days advised in case of chest pain worsening of shortness of breath he should immediately come to ER. I am planning to proceed with left heart cath as an outpatient in 2 weeks. Status: Acute (2) Systolic CHF: Patient is well compensated , continue current regimen Status: Acute Qualifiers: Heart failure chronicity: chronic Qualified Code(s): I50.22 - Chronic systolic (congestive) heart failure (3) Hypertension: Controlled continue to monitor Status: Acute Qualifiers: Hypertension type: essential hypertension Qualified Code(s): I10 - Essential (primary) hypertension (4) Hyperlipidemia: Continue statin. Status: Acute Qualifiers: Hyperlipidemia type: other hyperlipidemia Qualified Code(s): E78.49 - Other hyperlipidemia Attestations Medical Necessity Statement*: From a cardiovascular perspective patient can be discharged home Coding Level of Care Code Established Pt Acute Generator Operator for Shyanng Fwd Patient Type Established History Detailed Exam Detailed Medical Decision Making Moderate Complexity Diagnoses NSTEMI (non-ST elevated myocardial infarction) I21.4 Systolic CHF I50.22 Heart failure chronicity: chronic Hypertension I10 Hypertension type: essential hypertension Hyperlipidemia E78.49 Hyperlipidemia type: other hyperlipidemia
[2020-08-30 14:00] VITALS: PULSE 74
[2020-08-30 14:04] VITALS: BP 130/76; PULSE 76; RESP 15; TEMP 36.8; O2SAT 96
--- NOTE | 2020-08-30 15:53 | PC.NURSE ---
discharge instructions given and explained.pt verb understanding of instructions.discharged via w/c to exit at 1520.spouse to drive pt home.
== END 2020-08-30 15:20 | disposition home or self-care (01) | DRG 459 ==
LOC: MEDSURG 08-29 10:23 → CSU 08-30 07:51 → MEDSURG 09-01 06:19
PROVIDERS: Anesthesiology; Internal Medicine; Internal Medicine Cardiovascular Disease; Admitting Provider Orthopaedic Surgery; PCP Emergency Medicine Emergency Medical Services; Visit Provider Family Medicine
PROC: 0SG00AJ Fusion of Lumbar Vertebral Joint with Interbody Fusion Device, Posterior Approach, Anterior Column, Open Approach (ICD-10-PCS; CPT 22612; principal; 2020-08-28 10:10)
DX: M43.16 Spondylolisthesis, lumbar region (principal); I21.4 Non-ST elevation (NSTEMI) myocardial infarction; I50.22 Chronic systolic (congestive) heart failure; I97.191 Other postprocedural cardiac functional disturbances following other surgery; I25.2 Old myocardial infarction; I25.10 Atherosclerotic heart disease of native coronary artery without angina pectoris; Z95.5 Presence of coronary angioplasty implant and graft; I11.0 Hypertensive heart disease with heart failure; E78.5 Hyperlipidemia, unspecified; Z82.49 Family history of ischemic heart disease and other diseases of the circulatory system
CPT/HCPCS: 36415; 51702; 72020; 76000; 80053; 80061; 83735; 83880; 84100; 84443; 84484; 85025; 85049; 85610; 85730; 93005; 93306; 97110; 97161; C1713; G0378; J0690; J1100; J1170; J1644; J1940; J2370; J2405; J3010; J3370; J3490; J7030

== ENCOUNTER 2020-09-01 09:45 | Emergency (ER) | payer OTHER, SELFPAY ==
[2020-09-01 09:54] VITALS: BP 128/78; PULSE 83; RESP 18; TEMP 36.4; O2SAT 94; BMI 35.5
--- NOTE | 2020-09-01 10:11 | ED_ITS ---
HPI - Recheck/Abnormal Lab/Rx General: Chief Complaint: Recheck/Abnormal Lab/Rx Stated Complaint: L back insision opened up Time Seen by Provider: 09/01/20 10:02 History of Present Illness: HPI narrative: Patient is concerned about wound open slightly. Sutures are still in place. Is having drainage on the dressing. They change dressing yesterday. complaint: wound re-check Initial visit (ago): day(s) Initial visit for: other (Lumbar surgery) Returns today for: wound recheck Symptoms since prior visit: no new symptoms Associated symptoms: none Review of Systems Const: Denies: fever(s) or chills Musc: Denies: back pain Skin/Breast: Reports: other (Wound is dehisced some) PFSH ED PFSH: Medical History (Updated 09/01/20 @ 10:10 by CHANELL Vogel) CAD (coronary artery disease) Hyperlipidemia Hypertension Systolic CHF Surgical History (Updated 08/28/20 @ 17:39 by Ryan Ernandez MD) History of coronary artery stent placement Family History (Updated 08/28/20 @ 17:39 by Ryan Ernandez MD) Father CAD (coronary artery disease) Mother Renal cell carcinoma Social History (Updated 08/28/20 @ 17:40 by Ryan Ernandez MD) Smoking and tobacco status: never smoked Alcohol intake: current Physical Exam Const: COMMON NORMALS: no acute distress Psych: COMMON NORMALS: mental status grossly normal Skin: OTHER: Wound appears without erythema. Is drainage on the bandage consistent with serosanguineous type drainage. Sutures are intact. Slight dehiscence of the wound down the base. Course Vital Signs: Vital signs: Vital Signs Temperature 97.6 F 09/01/20 09:54 Pulse Rate 83 09/01/20 09:54 Respiratory Rate 18 09/01/20 09:54 Blood Pressure 128/78 09/01/20 09:54 Pulse Oximetry 94 09/01/20 09:54 Discharge Plan Discharge Patient Disposition: Home Clinical Impression: Encounter for wound re-check Condition: Stable Prescriptions: No Action atorvastatin [Lipitor] 80 mg tablet 80 mg PO DAILY RF: 0 lisinopril 40 mg tablet 40 mg PO DAILY RF: 0 omega-3 fatty acids [Fish Oil Concentrate] 1,000 mg capsule 1,000 mg PO DAILY RF: 0 multivitamin Tablet 1 tab PO DAILY RF: 0 gabapentin 100 mg Capsule 100 mg PO PRN PRN (Reason: Pain) RF: 0 Prilosec OTC 20 mg PO DAILY RF: 0 hydrocodone-acetaminophen 5-325 mg tablet 1 - 2 tab PO .Q4-6H Qty: 40 RF: 0 isosorbide mononitrate 30 mg Tablet Extended Release 24 Hr 30 mg PO DAILY 30 Days Qty: 30 RF: 0 clopidogrel 75 mg Tablet 75 mg PO DAILY 30 Days Qty: 30 RF: 0 aspirin 81 mg Tablet,Delayed Release (Dr/Ec) 81 mg PO DAILY 30 Days Qty: 30 RF: 0 nitroglycerin 0.4 mg Tablet, Sublingual 0.4 mg sublingual Q5M PRN (Reason: Chest Pain) 30 Days Qty: 30 RF: 0 metoprolol succinate 25 mg Tablet Extended Release 24 Hr 12.5 mg PO DAILY 30 Days Qty: 30 RF: 0 Discharge Orders: Discharge ED (Routine); Ordered 09/01/20 Ordered By: Isidro Schaefer Referrals: Richard Forde, [Primary Care Provider] - Discharge Diet: Usual diet Discharge Activity: Resume usual activity Activity Restrictions/Additional Instructions: Change dressing daily. Follow-up Dr. Humphreys's office as scheduled on . Coding Level of Care Code ED [facility] Counselor for Riya Cowart
== END 2020-09-01 10:15 | disposition home or self-care (01) ==
PROVIDERS: Emergency Provider Nurse Practitioner Family; PCP Emergency Medicine Emergency Medical Services
DX: Z48.01 Encounter for change or removal of surgical wound dressing (principal); Z79.02 Long term (current) use of antithrombotics/antiplatelets; Z79.82 Long term (current) use of aspirin; I25.10 Atherosclerotic heart disease of native coronary artery without angina pectoris; E78.5 Hyperlipidemia, unspecified; I11.0 Hypertensive heart disease with heart failure; I50.20 Unspecified systolic (congestive) heart failure
CPT/HCPCS: 99281

== ENCOUNTER 2020-09-09 11:07 | Inpatient (IN) | payer OTHER, MEDICARE, SELFPAY ==
[2020-09-09] VITALS (10 sets, daily range): BP systolic 120–172; BP diastolic 68–84; PULSE 67–85; RESP 14–23; TEMP 36.4–36.7; O2SAT 93–98; BMI 34.3
--- NOTE | 2020-09-09 12:15 | XR_ITS ---
WS: [id number] Acute abdomen series, 09/09/2020 Clinical Data: Abd Pain Comparison: None. Findings: In the chest there are no nodules or masses. There is patchy atelectasis over the surface o f the left diaphragm with a possible small left effusion. There is minimal linear atelectasis in the midportion of the right lung. The heart is normal. The pulmonary vascularity is not increased. The ao rtic arch and descending aorta show minimal calcification and tortuosity. No free air is seen beneath the diaphragms. No abnormal intra-abdominal masses or calcifications are seen. There is a large amount of gas in the stomach, small bowel and colon. There is a large pelvic m ass which could be a distended bladder. The patient's head in a posterior lumbar fusion at L4-L5 with artificial disc at L4-L5. There is an ill for laminectomy. 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 XR/XR acute abdomen series [id number] Impression: 1. Probable atelectasis over the surface of the left diaphragm and linear atele ctasis in the mid right lung. 2. Probable distended urinary bladder. 3. Generalized ileus.
--- NOTE | 2020-09-09 12:15 | ECG_ITS ---
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 Measurements Intervals [place] Rate: 71 P: 30 RI: 275 QRS: 21 QRSD: 133 T: -11 QT: 447 QTc: 488 Interpretive Statements SINUS RHYTHM WITH FIRST DEGREE AV BLOCK INTRAVENTRICULAR CONDUCTION DELAY [130+ ms QRS DURATION] INFERIOR MYOCARDIAL INFARCTION [40+ ms Q WAVE AND/OR ST/T ABNORMALITY IN II/aVF], OF INDETERMINATE AGE Compared to ECG 08/30/2020 03:49:26 First degree AV block now present Intraventricular conduction delay now present Myocardial infarct finding now present Electronically Signed On 09-09-2020 21:42:40 CDT by Melissa Valderrama M.D. [email or web address]
--- NOTE | 2020-09-09 12:16 | W.ED.NAVMDI ---
HPI - Nausea/Vomiting/Diarrhea General: Chief complaint: Nausea/Vomiting/Diarrhea Stated complaint: constipation/vomiting Time Seen by Provider: 09/09/20 12:11 History of Present Illness: HPI Narrative: This patient is a 65-year-old male who presents to the emergency department with constipation and nausea vomiting. Patient has not had a bowel movement in 11 days. Patient had back surgery on August 28 and then proceeded to have a small non-STEMI while inpatient. Patient was discharged home on the . Patient is not taking very much pain medicine at this time is still having no bowel movements. So much so that he has had some nausea vomiting. Patient states he does have positive flatus. And describes at times will be of a wet stool. Patient denies chest pain. Will do medical evaluation treat as needed MD elicited complaint: nausea, vomiting and abdominal pain Onset (ago): day(s) Associated nausea: Yes Associated symtoms: Reports nausea; Denies anxiety, change in vision, chest pain, dysuria, fatigue, headache(s) or palpitations Review of Systems General: Reports: 10 or more systems reviewed and unremarkable except in HPI and below Const: Denies: fever(s), chills, body aches or fatigue Eyes: Denies: change in vision or blurry vision ENMT: Denies: throat pain, hoarseness or mouth pain Card: Denies: chest pain, palpitations, irregular heart rhythm, edema, swelling of feet/ankles or lightheadedness Resp: Denies: dyspnea, productive cough, non-productive cough, wheezing or pain on inspiration GI: Reports: nausea, vomiting and constipation; Denies: abdominal pain : Denies: flank pain, dysuria, urinary frequency, urinary urgency or urinary hesitancy Musc: Denies: neck pain, back pain, extremity pain, extremity swelling, joint pain, joint swelling, joint redness, joint warmth or limited range of motion Skin/Breast: Denies: rash, pruritus, erythema or skin tenderness Neuro: Denies: headache(s), numbness in extremities or weakness in extremities Psych: Denies: anxiety or depression PFS ED PFSH: Medical History Atherosclerotic heart disease of [place] coronary artery without angina pectoris CAD (coronary artery disease) Diastolic CHF, chronic History of heart attack 2009 Stress test in 2019 Hyperlipidemia Hypertension Systolic CHF Surgical History History of coronary artery stent placement Family History Father CAD (coronary artery disease) Mother Renal cell carcinoma Social History Smoking and tobacco status: never smoked Alcohol intake: current Physical Exam Const: COMMON NORMALS: no acute distress, average body habitus, patient oriented x3, no limitations, healthy appearing, alert and well nourished HENMT: COMMON NORMALS: normocephalic, atraumatic, hearing grossly normal bilaterally, external ears normal, EAC's normal, TM's normal bilaterally, Normal external nose present, Normal nasal mucous membranes and turbinates present, moist oral mucous membranes, oropharynx normal, dentition normal and gingiva normal HEAD & SCALP: normocephalic and atraumatic NOSE: Normal external nose present and Normal nasal mucous membranes and turbinates present EXTERNAL EAR: Yes external ears normal EXTERNAL AUDITORY CANAL: EAC's normal TYMPANIC MEMBRANE: TM's normal bilaterally Neck/C-Spine: COMMON NORMALS: full ROM, no lymphadenopathy, supple, no meningeal signs, no JVD, Thyroid normal and No carotid bruits THYROID: Thyroid normal Chest: COMMONS NORMALS: normal inspection of the chest, normal palpation of entire chest wall, normal inspection of the breasts and normal palpation of the breasts Breast/axilla inspection: Yes normal inspection of the breasts BREAST/AXILLA PALPATION: Yes normal palpation of the breasts Resp: COMMON NORMALS: normal respiratory effort, No retractions, No use of accessory muscles, clear to auscultation bilaterally and percussion normal AUSCULTATION: clear to auscultation bilaterally PERCUSSION: percussion normal Cardio: COMMON NORMALS: no JVD, regular rate, regular rhythm, S1 normal heart sound present, S2 normal heart sound present, No gallops present (Cardio), No clicks present (Cardio), No murmurs present (Cardio), No rub (Cardio) and Peripheral pulses 2+ throughout RATE: regular rate RHYTHM: regular rhythm HEART SOUNDS: S1 normal heart sound present and S2 normal heart sound present PERIPHERAL PULSES: Peripheral pulses 2+ throughout GI: COMMON NORMALS: Normal to inspection, nondistended, normoactive bowel sounds present, Soft to palpation, non-tender, No hepatosplenomegaly present, no masses and no bruits PALPATION: Yes Soft to palpation and Yes No hepatosplenomegaly present : COMMON NORMALS: Yes no CVA tenderness BLADDER/KIDNEY EXAM: Yes no CVA tenderness Back/Pelvis: COMMON NORMALS: no CVA tenderness, thoracic and lumbar spine normal to inspection, no thoracic nor lumbar tenderness, thoraco-lumbar ROM normal and straight leg raise negative bilaterally Extremity: COMMON NORMALS: normal to inspection, full ROM, capillary refill normal, no joint enlargement, no clubbing, cyanosis or edema, no calf tenderness and no pedal edema Neuro: COMMON NORMALS: patient oriented x3 SENSORIUM/ORIENTATION: Yes alert MENINGEAL SIGNS: Yes no meningeal signs Course Reevaluation(s): Reevaluation #1: CT scan of the abdomen showed the patient a very distended urinary bladder. Haskins catheter placed 2400 cc of urine output and still going. We will continue to monitor. Patient states much improved. X-rays of the abdomen show very little stool if any mostly gas distended. Patient states he has had positive flatus. Still awaiting lab results. Time: 14:37 Reevaluation #2: Significantly abnormal labs. Troponin I 65. Sodium 104 BUN 117 creatinine 13.8. Most likely related to obstructive uropathy Haskins catheter put out over 3 L of urine. Patient has much relief after this. Patient will be admitted to the hospital for further evaluation treatment. Will repeat BMP. Time: 15:43 Consultations: Consultation #1: I did discuss at length with Dr. Abdalla cardiology about patient's elevated troponin. He believes this most likely is related to the acute renal failure related to the obstructive uropathy. But he agrees to be a consult on patient's case. Time: 15:42 Consultation #2: I did discuss at length with Dr. Humphreys orthopedics who performed patient's back surgery he will see patient as a oracle application consultant as needed. Time: 17:47 Consultation #3: I did discuss at length with Dr. Hunter. She agrees accept this patient admission to the ICU. Time: 17:47 Vital Signs: Vital signs: Vital Signs Temperature 98.1 F 09/09/20 11:44 Pulse Rate 85 09/09/20 16:56 Respiratory Rate 18 09/09/20 16:56 Blood Pressure 159/78 09/09/20 16:56 Pulse Oximetry 95 09/09/20 16:56 MDM - Nausea/Vomiting/Diarrhea MDM Narrative: Medical decision making narrative: This patient is a 65-year-old male who presents to the emergency department with constipation and nausea vomiting. Patient has not had a bowel movement in 11 days. Patient had back surgery on August 28 and then proceeded to have a small non-STEMI while inpatient. Patient was discharged home on the . Patient is not taking very much pain medicine at this time is still having no bowel movements. So much so that he has had some nausea vomiting. Patient states he does have positive flatus. And describes at times will be of a wet stool. Patient denies chest pain. CT scan of the abdomen showed the patient a very distended urinary bladder. Haskins catheter placed 2400 cc of urine output and still going. We will continue to monitor. Patient states much improved. X-rays of the abdomen show very little stool if any mostly gas distended. Patient states he has had positive flatus. Still awaiting lab results. Significantly abnormal labs. Troponin I 65. Sodium 104 BUN 117 creatinine 13.8. Most likely related to obstructive uropathy Haskins catheter put out over 3 L of urine. Patient has much relief after this. Patient will be admitted to the hospital for further evaluation treatment. Will repeat BMP. I did discuss at length with Dr. Abdalla cardiology about patient's elevated troponin. He believes this most likely is related to the acute renal failure related to the obstructive uropathy. But he agrees to be a consult on patient's case. I did discuss at length with Dr. Hunter. She agrees accept this patient admission to the ICU. Medical Records: Attestation: I reviewed the patient's medical records. Lab Data: Attestation: I reviewed the patient's lab results. Labs: Lab Results 09/09/20 09/09/20 09/09/20 Range/Units 12:44 13:10 13:10 WBC 15.1 H (4.0-10.0) 10^3/ uL RBC 3.58 L (4.1-5.3) 10^6/u L Hgb 11.4 L (11.7-16.6) g/dL Hct 30.2 L (42.0-52.0) % MCV 84.4 (80-94) fL MCH 31.8 (28.0-34.0) pg MCHC 37.7 H (30.0-36.0) g/dL RDW 11.9 L (12.1-15.1) % Plt Count 251 (130-400) 10^3/c mm MPV 9.5 (7.4-10.4) fL Neut % (Auto) 87.7 % Lymph % (Auto) 4.8 % Sutton % (Auto) 5.8 % Eos % (Auto) 0.1 % Baso % (Auto) 0.1 % Neut # (Auto) 13.27 H (1.8-7.7) 10^3/u L Lymph # (Auto) 0.7 L (0.8-4.8) 10^3/u L Sutton # (Auto) 0.9 (0.2-0.9) 10^3/u L Eos # (Auto) 0.0 (0.0-0.8) 10^3/u L Baso # (Auto) 0.0 (0.0-0.1) 10^3/u L Nucleated RBC % (a uto) 0 % Nucleated RBCs # 0.0 /100WBC PT (12.1-14.9) SECO NDS INR (0.8-1.2) APTT (23.9-36.7) SECO NDS Sodium Cancelled Potassium Cancelled Chloride Cancelled Carbon Dioxide Cancelled Anion Gap Cancelled BUN Cancelled Creatinine Cancelled GFR Calculation Cancelled Glucose Cancelled Calculated Osmolal ity Cancelled Calcium Cancelled Total Bilirubin Cancelled AST Cancelled ALT Cancelled Alkaline Phosphata se Cancelled Troponin T Baselin e (0-15) ng/L Total Protein Cancelled Albumin Cancelled Globulin Cancelled Lipase Cancelled Urine Color Yellow (Yellow) Urine Appearance Clear (CLEAR) Urine pH 5 (5-7) Ur Specific Gravit y 1.015 (1.005-1.030) Urine Protein Neg (Negative) Urine Glucose (UA) 4+ H (Normal) Urine Ketones 3+ H (Negative) Urine Blood 2+ H (Negative) Urine Nitrate Negative (Negative) Urine Bilirubin Neg (Negative) Urine Urobilinogen Norm (Negative) mg/dL Ur Leukocyte Devora ase Negative (Negative) Urine RBC 0-4 H (0-2) /hpf Urine WBC None (0-5) /hpf Ur Squamous Epith Cells None (0-5) /hpf Amorphous Sediment Not Reportable Urine Bacteria None (NONE) /hpf 09/09/20 09/09/20 09/09/20 Range/Units 14:26 14:26 14:26 WBC 15.1 H (4.0-10.0) 10^3/ uL RBC 3.61 L (4.1-5.3) 10^6/u L Hgb 11.7 (11.7-16.6) g/dL Hct 31.6 L (42.0-52.0) % MCV 87.5 (80-94) fL MCH 32.4 (28.0-34.0) pg MCHC 37.0 H (30.0-36.0) g/dL RDW 12.0 L (12.1-15.1) % Plt Count 250 (130-400) 10^3/c mm MPV 9.3 (7.4-10.4) fL Neut % (Auto) 88.6 % Lymph % (Auto) 4.2 % Sutton % (Auto) 5.7 % Eos % (Auto) 0.1 % Baso % (Auto) 0.1 % Neut # (Auto) 13.39 H (1.8-7.7) 10^3/u L Lymph # (Auto) 0.6 L (0.8-4.8) 10^3/u L Sutton # (Auto) 0.9 (0.2-0.9) 10^3/u L Eos # (Auto) 0.0 (0.0-0.8) 10^3/u L Baso # (Auto) 0.0 (0.0-0.1) 10^3/u L Nucleated RBC % (a uto) 0 % Nucleated RBCs # 0.0 /100WBC PT 16.20 H (12.1-14.9) SECO NDS INR 1.26 H (0.8-1.2) APTT 34.9 (23.9-36.7) SECO NDS Sodium Cancelled Potassium Cancelled Chloride Cancelled Carbon Dioxide Cancelled Anion Gap Cancelled BUN Cancelled Creatinine Cancelled GFR Calculation Cancelled Glucose Cancelled Calculated Osmolal ity Cancelled Calcium Cancelled Total Bilirubin Cancelled AST Cancelled ALT Cancelled Alkaline Phosphata se Cancelled Troponin T Baselin e (0-15) ng/L Total Protein Cancelled Albumin Cancelled Globulin Cancelled Lipase Urine Color (Yellow) Urine Appearance (CLEAR) Urine pH (5-7) Ur Specific Gravit y (1.005-1.030) Urine Protein (Negative) Urine Glucose (UA) (Normal) Urine Ketones (Negative) Urine Blood (Negative) Urine Nitrate (Negative) Urine Bilirubin (Negative) Urine Urobilinogen (Negative) mg/dL Ur Leukocyte Devora ase (Negative) Urine RBC (0-2) /hpf Urine WBC (0-5) /hpf Ur Squamous Epith Cells (0-5) /hpf Amorphous Sediment Urine Bacteria (NONE) /hpf 09/09/20 09/09/20 09/09/20 Range/Units 14:26 14:26 16:13 WBC (4.0-10.0) 10^3/ uL RBC (4.1-5.3) 10^6/u L Hgb (11.7-16.6) g/dL Hct (42.0-52.0) % MCV (80-94) fL MCH (28.0-34.0) pg MCHC (30.0-36.0) g/dL RDW (12.1-15.1) % Plt Count (130-400) 10^3/c mm MPV (7.4-10.4) fL Neut % (Auto) % Lymph % (Auto) % Sutton % (Auto) % Eos % (Auto) % Baso % (Auto) % Neut # (Auto) (1.8-7.7) 10^3/u L Lymph # (Auto) (0.8-4.8) 10^3/u L Sutton # (Auto) (0.2-0.9) 10^3/u L Eos # (Auto) (0.0-0.8) 10^3/u L Baso # (Auto) (0.0-0.1) 10^3/u L Nucleated RBC % (a uto) % Nucleated RBCs # /100WBC PT (12.1-14.9) SECO NDS INR (0.8-1.2) APTT (23.9-36.7) SECO NDS Sodium 104 L* 113 L* Potassium 3.9 3.5 Chloride 67 L 75 L Carbon Dioxide 12 L 14 L Anion Gap 28.9 H 27.5 H BUN 117 H* D 100 H* Creatinine 13.8 H* 10.9 H* GFR Calculation 3.6 L 4.7 L Glucose 85 90 Calculated Osmolal ity 255 L 267 L Calcium 7.5 L 8.1 L Total Bilirubin 0.4 AST 38 ALT 20 Alkaline Phosphata se 90 Troponin T Baselin e 165 H* (0-15) ng/L Total Protein 6.0 L Albumin 3.4 L Globulin 2.6 Lipase 106 H Urine Color (Yellow) Urine Appearance (CLEAR) Urine pH (5-7) Ur Specific Gravit y (1.005-1.030) Urine Protein (Negative) Urine Glucose (UA) (Normal) Urine Ketones (Negative) Urine Blood (Negative) Urine Nitrate (Negative) Urine Bilirubin (Negative) Urine Urobilinogen (Negative) mg/dL Ur Leukocyte Devora ase (Negative) Urine RBC (0-2) /hpf Urine WBC (0-5) /hpf Ur Squamous Epith Cells (0-5) /hpf Amorphous Sediment Urine Bacteria (NONE) /hpf Imaging Data^: KUB: Attestation: I personally reviewed and interpreted this imaging study as follows: Radiologist's impression: Findings: In the chest there are no nodules or masses. There is patchy atelectasis over the surface of the left diaphragm with a possible small left effusion. There is minimal linear atelectasis in the midportion of the right lung. The heart is normal. The pulmonary vascularity is not increased. The aortic arch and descending aorta show minimal calcification and tortuosity. No free air is seen beneath the diaphragms. No abnormal intra-abdominal masses or calcifications are seen. There is a large amount of gas in the stomach, small bowel and colon. There is a large pelvic mass which could be a distended bladder. The patient's head in a posterior lumbar fusion at L4-L5 with artificial disc at L4-L5. There is an ill for laminectomy. 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 CT Abd/Pel: Attestation: I personally reviewed and interpreted this imaging study as follows: Radiologist's impression: FINDINGS: Tiny right pleural effusion. Subsegmental atelectasis right lower lobe. A few calcified granulomas Noncontrast liver is normal. Normal noncontrast spleen. Fatty atrophy of the pancreas. Adrenal glands are normal. No hydronephrosis in either kidney. Normal caliber abdominal aorta. Aortic calcification. Markedly distended urinary bladder extending into the mid lower abdomen. Prostate measures 4.2 CM. Bowel loops are displaced peripherally due to bladder enlargement. Air distended loops of transverse colon. No evidence of high-grade small or large bowel obstruction. Incidental fat-containing left inguinal hernia. Hypertrophic changes lumbar spine. Pedicle screw fixation L4-[address]/CT abdomen pelvis wo con [id number] IMPRESSION: 1. Markedly distended urinary bladder extending into the mid and lower abdomen. Bowel loops are displaced peripherally about the distended bladder. 2. Air distended transverse colon. No evidence of high-grade small or large bowel obstruction. 3. Air-fluid level within the stomach. 4. No hydronephrosis in either kidney. 5. Slightly prominent prostate measuring 4.2 CM. 6. Tiny right pleural effusion with slight patchy subsegmental atelectasis in the lung bases. EKG Data^: EKG 1: Attestation: I personally reviewed and interpreted this EKG as follows: EKG interpretation date: 09/09/20 EKG interpretation time: 12:26 Prior EKG tracings: available for review Interpretation: Sinus rhythm with a first-degree AV block. Interventricular conduction delay. Nonspecific ST changes. Heart rate 71 abnormal EKG. EKG 2: Attestation: I personally reviewed and interpreted this EKG as follows: EKG interpretation date: 09/09/20 EKG interpretation time: 14:35 Prior EKG tracings: available for review Interpretation: Sinus rhythm with a first-degree AV block. Interventricular conduction delay. Nonspecific EKG changes heart rate 70 Discharge Plan Discharge Patient Disposition: Admitted As Inpatient Clinical Impression: Lower obstructive uropathy, Acute renal failure, Elevated troponin, Abdominal pain, Acute hyponatremia Condition: Stable Coding Level of Care Code ED Networking Specialist for Chg Fwd Exam Comprehensive
--- NOTE | 2020-09-09 12:59 | CT_ITS ---
WS: [id number] CT ABDOMEN PELVIS TECHNIQUE: Noncontrast CT of the abdomen and pelvis with coronal and sagittal reformatted images. CLINICAL INFORMATION: abd pain COMPARISON: None. DLP: 1397.[address] scans at [facility] use at least one of these dose optimization techniques: automat ed exposure control; mA and/or kV adjustment per patient size (includes targeted exams where dose is matched to clinical indication); or iterative reconstruction. FINDINGS: Tiny right pleural effusion. Subsegmental atelectasis right lower lobe. A few calcified granulomas Noncontrast liver is normal. Normal noncontrast spleen. Fatty atrophy of the pancreas. Adrenal glands are normal. No hydronephrosis in either kidney. Normal caliber abdominal aorta. Aortic calcification. Markedly distended urinary bladder extending in to the mid lower abdomen. Prostate measures 4.2 CM. Bowel loops are displaced peripherally due to trevor dder enlargement. Air distended loops of transverse colon. No evidence of high-grade small or large b owel obstruction. Incidental fat-containing left inguinal hernia. Hypertrophic changes lumbar spine. Pedicle screw fixa tion L4-[address]/CT abdomen pelvis wo con [id number] IMPRESSION: 1. Markedly distended urinary bladder extending into the mid and lower abdomen . Bowel loops are displaced peripherally about the distended bladder. 2. Air distended transverse colon. No evidence of high-grade small or large faith wel obstruction. 3. Air-fluid level within the stomach. 4. No hydronephrosis in either kidney. 5. Slightly prominent prostate measuring 4.2 CM. 6. Tiny right pleural effusion with slight patchy subsegmental atelectasis in the lung bases.
[2020-09-09] MEDS: ondansetron 2 mg/ML SDV 2 mL 4 MG IVP (13:10)
[2020-09-09] MEDS: sodium chloride 0.9% 500 ML IV ×2 (13:10→19:14)
[2020-09-09 13:23] LABS: Basophils % 0.1 %; Eosinophils % 0.1 %; Hematocrit 30.2 % (42.0-52.0); Hemoglobin 11.4 g/dL (11.7-16.6); Lymphocytes # 0.7 10^3/uL (0.8-4.8); Lymphocytes % 4.8 %; Mean Corpuscular HGB Conc 37.7 g/dL (30.0-36.0); Mean Corpuscular Hemoglobin 31.8 pg (28.0-34.0); Mean Corpuscular Volume 84.4 fL (80-94); Mean Platelet Volume 9.5 fL (7.4-10.4); Monocytes # 0.9 10^3/uL (0.2-0.9); Monocytes % 5.8 %; Neutrophils # 13.27 10^3/uL (1.8-7.7); Neutrophils % 87.7 %; Nucleated Red Blood Cells % 0 %; Platelet Count 251 10^3/cmm (130-400); Positive C 1; Red Blood Count 3.58 10^6/uL (4.1-5.3); Red Cell Distribution Width 11.9 % (12.1-15.1); White Blood Count 15.1 10^3/uL (4.0-10.0)
--- NOTE | 2020-09-09 14:15 | ECG_ITS ---
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 Measurements Intervals [place] Rate: 70 P: 52 [place]: 314 QRS: 21 QRSD: 138 T: -9 QT: 458 QTc: 494 Interpretive Statements SINUS RHYTHM WITH FIRST DEGREE AV BLOCK WITH OCCASIONAL VENTRICULAR PREMATURE COMPLEXES INTRAVENTRICULAR CONDUCTION DELAY [130+ ms QRS DURATION] INFERIOR MYOCARDIAL INFARCTION [40+ ms Q WAVE AND/OR ST/T ABNORMALITY IN II/aVF], OF INDETERMINATE AGE Compared to ECG 09/09/2020 12:26:14 Ventricular premature complex(es) now present Myocardial infarct finding still present Electronically Signed On 09-10-2020 23:53:55 CDT by Samy Lovelace M.D. [id number]
[2020-09-09 14:19] LABS: Slide Review Slide Review Perform
--- NOTE | 2020-09-09 14:34 | PC.NURSE ---
16f gonzalez catheter placed at this time. there is 3000cc out initially sl cloudy yellow urine and then blood
[2020-09-09 14:35] LABS: Basophils % 0.1 %; Eosinophils % 0.1 %; Hematocrit 31.6 % (42.0-52.0); Hemoglobin 11.7 g/dL (11.7-16.6); Lymphocytes # 0.6 10^3/uL (0.8-4.8); Lymphocytes % 4.2 %; Mean Corpuscular Hemoglobin 32.4 pg (28.0-34.0); Mean Corpuscular Volume 87.5 fL (80-94); Mean Platelet Volume 9.3 fL (7.4-10.4); Monocytes # 0.9 10^3/uL (0.2-0.9); Monocytes % 5.7 %; Neutrophils # 13.39 10^3/uL (1.8-7.7); Neutrophils % 88.6 %; Nucleated Red Blood Cells % 0 %; Platelet Count 250 10^3/cmm (130-400); Red Blood Count 3.61 10^6/uL (4.1-5.3); White Blood Count 15.1 10^3/uL (4.0-10.0)
[2020-09-09 14:51] LABS: INR 1.26 (0.8-1.2)
[2020-09-09 14:52] LABS: Partial Thromboplastin Time 34.9 SECONDS (23.9-36.7)
[2020-09-09 14:54] LABS: Urine Color Yellow (Yellow)
[2020-09-09 15:01] LABS: Alanine Aminotransferase 20 U/L (0-41); Albumin Level 3.4 g/dL (3.5-5.2); Alkaline Phosphatase 90 IU/L (40-130); Calcium 7.5 mg/dL (8.5-10.5); Carbon Dioxide 12 mmol/L (22-29); Chloride 67 mmol/L (98-107); Globulin 2.6 g/dL (1.3-4.6); Glomerular Filtration Rate 3.6 mL/min (90-130); Glucose 85 mg/dL (65-115); Lipase 106 U/L (13-60); Total Bilirubin 0.4 mg/dL (0.15-1.2)
[2020-09-09 15:04] LABS: Add Urine Microscopic? YES; Bilirubin Urine Neg (Negative); Blood Urine 2+ (Negative); Glucose Urine UA 4+ (Normal); Ketones Urine 3+ (Negative); Leukocyte Esterase Urine Negative (Negative); Nitrate Urine Negative (Negative); Protein Urine Neg (Negative); Specific Gravity, Urine 1.015 (1.005-1.030); Urine Appearance Clear (CLEAR); Urobilinogen Urine Norm (Negative); pH Urine 5 (5-7)
[2020-09-09 15:05] LABS: RBC Urine 0-4 /hpf (0-2)
[2020-09-09 15:30] LABS: Blood Urea Nitrogen 117 mg/dL (8-23); Osmolality Calculated 255 mOsm/kg (285-295); Sodium 104 mmol/L (136-145)
--- NOTE | 2020-09-09 15:30 | PC.NURSE ---
gave critical results called to me from lab of: trop 165.2 na 104, bun 117, cr 13.4
[2020-09-09 15:31] LABS: Anion Gap 28.9 (5-19); Aspartate Amino Transferase 38 U/L (0-40); Potassium 3.9 mmol/L (3.5-5.1); Troponin(5th) Baseline 165 ng/L (0-15)
[2020-09-09 16:40] LABS: Anion Gap 27.5 (5-19); Calcium 8.1 mg/dL (8.5-10.5); Carbon Dioxide 14 mmol/L (22-29); Chloride 75 mmol/L (98-107); Glomerular Filtration Rate 4.7 mL/min (90-130); Glucose 90 mg/dL (65-115); Osmolality Calculated 267 mOsm/kg (285-295); Potassium 3.5 mmol/L (3.5-5.1)
[2020-09-09 16:59] LABS: Blood Urea Nitrogen 100 mg/dL (8-23); Sodium 113 mmol/L (136-145)
--- NOTE | 2020-09-09 18:15 | ECG_ITS ---
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 Measurements Intervals [place] Rate: 71 P: 44 [place]: 284 QRS: 21 QRSD: 130 T: -20 QT: 439 QTc: 480 Interpretive Statements SINUS RHYTHM WITH FIRST DEGREE AV BLOCK INFERIOR MYOCARDIAL INFARCTION [40+ ms Q WAVE AND/OR ST/T ABNORMALITY IN II/aVF], OF INDETERMINATE AGE Compared to ECG 09/09/2020 14:35:15 Ventricular premature complex(es) no longer present Intraventricular conduction delay no longer present Myocardial infarct finding still present Electronically Signed On 09-09-2020 21:54:21 CDT by Melissa Valderrama M.D. [id number]
[2020-09-09 19:26] LABS: Troponin 5 2HR 228.4 ng/L (0-15)
[2020-09-09 21:12] LABS: Troponin 5 6HR 211.8 ng/L (0-15)
[2020-09-09 21:13] LABS: Troponin 5 6HR Delta -17 ng/L (0-12)
--- NOTE | 2020-09-09 21:38 | PM.CONSULT ---
Providers/Reason For Consult Consulting Physician/Specialty*: Samy Lovelace MD/ Cardiology Reason for Consult*: Troponin elevation Primary Care Provider: Richard Forde DO History of Present Illness History of Present Illness Deven Brennan is a 65 year old male with past medical history of CAD status post 7 stents in the past, hypertension, hyperlipidemia who had recent spine surgery performed. During the hospitalization he had an NSTEMI and the plan was to perform a left heart cath in 2 weeks as he was post spine surgery at that time. However patient presented to the hospital today with complaints of nausea, vomiting and constipation. His creatinine has jumped to more than 10 from a baseline of around 1. According to patient he was taking ibuprofen for his pain control. He was not drinking much water. He has been started on IV fluids. Cardiology was consulted because his troponin levels have been elevated. He denies any chest pain or breathing difficulty at this time. EKG does not show acute ischemic changes. Review of Systems Const: Reports: change in appetite (poor) and malaise; Denies: fever(s) or chills Eyes: Denies: change in vision ENMT: Reports: other (bleeding gums); Denies: throat pain, swelling of lips/tongue, ear or mastoid pain or ear discharge Card: Reports: palpitations and lightheadedness (chronic); Denies: chest pain or syncope Resp: Reports: dyspnea GI: Reports: abdominal pain, nausea and vomiting : Reports: dysuria, urinary frequency, urinary urgency and oliguria; Denies: hematuria Musc: Denies: back pain, extremity pain or muscle cramps Skin/Breast: Reports: other (surgical incision site at the back); Denies: rash or pruritus Neuro: Reports: headache(s) and confusion Psych: Denies: anxiety, depression, suicidal ideation or homicidal ideation Endo: Denies: cold intolerance or heat intolerance Kemal/Lymph: Reports: easy bruising and easy bleeding (bleeing in his gums. ) All/Imm: Denies: acute wheezing or itchy eyes Meds/Allergies Home Medications and Allergies Home Medications Medication Instructions Recorded Confirmed Last Taken Type atorvastatin 80 mg tablet 40 mg PO DAILY 08/11/20 09/09/20 09/09/20 History lisinopril 40 mg tablet 40 mg PO DAILY 08/11/20 09/09/20 09/09/20 History multivitamin 1 tab PO DAILY 08/11/20 09/09/20 09/09/20 History omega-3 fatty acids 1,000 mg 1,000 mg PO DAILY 08/11/20 09/09/20 09/09/20 History capsule Prilosec OTC 20 mg PO DAILY 08/24/20 09/09/20 09/09/20 History gabapentin 100 mg PO PRN PRN 08/24/20 09/09/20 08/27/20 History aspirin 81 mg PO DAILY 30 Days #30 tab 08/30/20 09/09/20 09/09/20 Rx clopidogrel 75 mg PO DAILY 30 Days #30 tab 08/30/20 09/09/20 09/09/20 Rx isosorbide mononitrate 30 mg PO DAILY 30 Days #30 tab 08/30/20 09/09/20 09/09/20 Rx metoprolol succinate 12.5 mg PO DAILY 30 Days #30 tab 08/30/20 09/09/20 09/09/20 Rx nitroglycerin 0.4 mg SUBLINGUAL Q5M PRN 30 Days 08/30/20 09/09/20 Unknown Rx #30 tab potassium chloride 10 meq PO DAILY 09/09/20 09/09/20 09/09/20 History Allergies Allergy/AdvReac Type Severity Reaction Status Date / Time rosuvastatin [From Crestor] Allergy Unknown unknown Verified 09/07/20 11:30 simvastatin [From Zocor] Allergy unknown Verified 09/07/20 11:30 PFSH Acute PFSH: Medical History Atherosclerotic heart disease of [place] coronary artery without angina pectoris CAD (coronary artery disease) Diastolic CHF, chronic History of heart attack 2008 Stress test in 2019 Hyperlipidemia Hypertension Systolic CHF Surgical History History of coronary artery stent placement Family History Father CAD (coronary artery disease) Mother Renal cell carcinoma Social History Smoking and tobacco status: never smoked Alcohol intake: current Vitals/I&O/Wt Last Vital Signs Temp 98.1 F 09/09/20 11:44 Pulse 84 09/09/20 20:20 Resp 18 09/09/20 20:20 BP 154/69 09/09/20 20:20 Pulse Ox 94 09/09/20 20:20 09/09/20 09/09/20 09/09/20 06:59 14:59 22:59 Intake Total 500 / 500 Output Total 5500 / 5500 Balance 500 / 500 -5500 / -5000 Weight last 48 hrs Weight 213 lb Physical Exam Narrative: EXAM NARRATIVE: GENERAL: Patient is alert, awake and oriented x3. [] NECK: No jugular vein distension. [] HEENT: No cyanosis. No icterus. No pallor. [] HEART: Regular S1 and S2. No murmur, rub or gallop. [] LUNGS: Clear to auscultate bilaterally. [] ABDOMEN: Soft, nontender and nondistended. Positive bowel sounds. No guarding, rebound or tenderness. [] CENTRAL NERVOUS SYSTEM: Grossly nonfocal. [] EXTREMITIES: Lower extremities with 1+ edema bilaterally. Pulses palpable in the lower extremities, both dorsalis pedis and posterior tibial. [] Urinary Catheter Management^: Haskins: Cath Placed During This Visit: yes Urinary Catheter Date of Insertion: 09/09/20 Urinary Catheter Time of Insertion: 14:20 A&P Assessment and plan (1) Acute urinary retention: Status: Acute (2) Acute renal failure: Status: Acute (3) Elevated troponin: Status: Acute (4) Hyperlipidemia: Status: Acute Qualifiers: Hyperlipidemia type: other hyperlipidemia Qualified Code(s): E78.49 - Other hyperlipidemia (5) Hypertension: Status: Acute Qualifiers: Hypertension type: essential hypertension Qualified Code(s): I10 - Essential (primary) hypertension (6) Troponin level elevated: Status: Acute Patient has presented with acute renal failure and has elevated troponin levels. This is likely secondary to demand ischemia. Patient does not have any complaints of chest pain. Given patient's recent non-ST elevation VA, continue aspirin and Plavix. Order limited echocardiogram to reassess LV systolic function. Continue beta-madi. Thank you for involving us with care of this patient. We will continue to follow. Please call with questions. Coding Level of Care Code Acute Talent Development Consultant for Riya Cowart Diagnoses Acute urinary retention R33.8 Acute renal failure N17.9 Elevated troponin R77.8 Hyperlipidemia E78.49 Hyperlipidemia type: other hyperlipidemia Hypertension I10 Hypertension type: essential hypertension Troponin level elevated R77.8
--- NOTE | 2020-09-09 23:13 | PM.HP ---
Providers/Chief Complaint Admitting Physician: Krysten Dickson MD Primary Care Provider: Richard Forde DO Chief Complaint: back issues post back surgery History of Present Illness Deven Brennan is a 65yo man w/ CAD, [place] s/p 7 stents, HTN, HLD, chronic back pain due to L4/L5 Spondylolisthesis s/p L4/L5 fusion w/ laminectomy on 08/28/2020 who presented to the ED on 09/09/2020 w/ complaints of constipation, nausea, vomiting, abdominal pain. Patient's hospitalization from 08/28 - 08/30/2020 for his L4/L5 fusion w/ laminectomy on 08/28/2020 was complicated by an NSTEMI requiring ACS protocol and for which he was seen by Cardiology w/ the plans for a LHC in 2 weeks post d/c in once healed from surgery. He was d/c'ed on aspirin statin, plavix, imdur, metoprolol. The patient states that he had small amounts of watery stools up to twice per day, and intermittent urinary dribbling combined with periods of lack of urination. He endorses abdominal pain, poor appetite, fatigue, malaise, intermittent shortness of breath, episodes of confusion, dysuria, increased urinary urgency/frequency, as well as bleeding at the incision site the day prior to presentation states that he could not go for his regular walks. He denies any episodes of chest pain since discharge, but did endorse palpitations. He endorses chronic lightheadedness with changes in position for approximately 2 years. He denies visual changes, LOC, fever, or chills. Complains that he is gums blee since he has been on Plavix, and that it happened to him in 2007, when he had to take Plavix for a period if time. In the ED, he vomited bilious liquid. His vital signs were within normal limits with the exception of episodes of tachypnea. He had a leukocytosis of 15, a Na of 103 (Na of 136 on 08/30/2020), and an JERMAN w/ Cr of 13.8 (Baseline Cr of 0.9 on 08/30/2020). His UA was negative for a UTI and his lipase levels were 106. His initial CXR/abdominal XR showed probable atelectasis in the lung, concern for distended urinary bladder and generalized ileus. A CT abd/pelvis done that showed a markedly distended urinary bladder extended into the mid and lower abdomen, with bowel loops displaced preferably around the bladder, air-fluid level within the stomach, but no evidence of high-grade small bowel obstruction, or hydronephrosis in the kidneys. It did also show an enlarged prostate measuring 4.2 cm, and a tiny right pleural effusion with atelectasis in the lung bases. A gonzalez catheter was placed that drained 3L of urine. Repeat Na was 113 after drainage of urine and without administration of IVF. Cardiology and orthopedic surgery were consulted in the ED. Per ED, the numerical tool programmer saw the patient, and deemed that the elevated troponin T was likely due to the acute renal failure. Orthopedic surgeon indicated his willingness to consult on the patient as needed. Review of Systems Const: Reports: change in appetite (poor) and malaise; Denies: fever(s) or chills Eyes: Denies: change in vision ENMT: Reports: other (bleeding gums); Denies: throat pain, swelling of lips/tongue, ear or mastoid pain or ear discharge Card: Reports: palpitations and lightheadedness (chronic); Denies: chest pain or syncope Resp: Reports: dyspnea GI: Reports: abdominal pain, nausea and vomiting : Reports: dysuria, urinary frequency, urinary urgency and oliguria; Denies: hematuria Musc: Denies: back pain, extremity pain or muscle cramps Skin/Breast: Reports: other (surgical incision site at the back); Denies: rash or pruritus Neuro: Reports: headache(s) and confusion Psych: Denies: anxiety, depression, suicidal ideation or homicidal ideation Endo: Denies: cold intolerance or heat intolerance Kemal/Lymph: Reports: easy bruising and easy bleeding (bleeing in his gums. ) All/Imm: Denies: acute wheezing or itchy eyes Medications/Allergies Home Medications Medication Instructions Recorded Confirmed Last Taken Type atorvastatin 80 mg tablet 40 mg PO DAILY 08/11/20 09/09/20 09/09/20 History lisinopril 40 mg tablet 40 mg PO DAILY 08/11/20 09/09/20 09/09/20 History multivitamin 1 tab PO DAILY 08/11/20 09/09/20 09/09/20 History omega-3 fatty acids 1,000 mg 1,000 mg PO DAILY 08/11/20 09/09/20 09/09/20 History capsule Prilosec OTC 20 mg PO DAILY 08/24/20 09/09/20 09/09/20 History gabapentin 100 mg PO PRN PRN 08/24/20 09/09/20 08/27/20 History aspirin 81 mg PO DAILY 30 Days #30 tab 08/30/20 09/09/20 09/09/20 Rx clopidogrel 75 mg PO DAILY 30 Days #30 tab 08/30/20 09/09/20 09/09/20 Rx isosorbide mononitrate 30 mg PO DAILY 30 Days #30 tab 08/30/20 09/09/20 09/09/20 Rx metoprolol succinate 12.5 mg PO DAILY 30 Days #30 tab 08/30/20 09/09/20 09/09/20 Rx nitroglycerin 0.4 mg SUBLINGUAL Q5M PRN 30 Days 08/30/20 09/09/20 Unknown Rx #30 tab potassium chloride 10 meq PO DAILY 09/09/20 09/09/20 09/09/20 History Allergies Allergy/AdvReac Type Severity Reaction Status Date / Time rosuvastatin [From Crestor] Allergy Unknown unknown Verified 09/07/20 11:30 simvastatin [From Zocor] Allergy unknown Verified 09/07/20 11:30 PFSH Acute PFSH: Medical History Atherosclerotic heart disease of [place] coronary artery without angina pectoris CAD (coronary artery disease) Diastolic CHF, chronic History of heart attack 2008 Stress test in 2019 Hyperlipidemia Hypertension Systolic CHF Surgical History History of coronary artery stent placement Family History Father CAD (coronary artery disease) Mother Renal cell carcinoma Social History Smoking and tobacco status: never smoked Alcohol intake: current Vitals/I&O/Wt Last Vital Signs Temp 98.1 F 09/09/20 11:44 Pulse 84 09/09/20 20:20 Resp 18 09/09/20 20:20 BP 154/69 09/09/20 20:20 Pulse Ox 94 09/09/20 20:20 09/09/20 09/09/20 09/10/20 14:59 22:59 06:59 Intake Total 500 / 500 500 / 1000 Output Total 8900 / 8900 Balance 500 / 500 -8400 / -7900 Weight last 48 hrs Weight 96.615 kg Physical Exam Const: GENERAL APPEARANCE: cooperative and comfortable ORIENTATION/CONSCIOUSNESS: Yes awake, Yes oriented to person, Yes oriented to place and Yes oriented to time HENMT: HEAD & SCALP: normocephalic and atraumatic FACE & SINUS: normal facial exam MOUTH: Abnormal oral and palatal mucosa present (evidence of formerly bleeding but now dry gums. ) TEETH & GINGIVA: Yes abnormal tooth and associated gingiva (evidence of formerly bleeding but now dry gums. ) THROAT: posterior oropharynx normal Eye: CONJUNCTIVA: Yes conjunctivae normal PUPIL: Yes Equal, round and reactive pupils present EOM: No EOM abnormal Neck/C-Spine: GENERAL: Yes trachea midline and No anterior neck swelling THYROID: Thyroid normal CAROTIDS: Yes normal carotid upstroke CERVICAL SPINE: Yes cervical ROM normal Resp: AUSCULTATION: diminished lung sounds bilateral (From the middle to the bilateral lower lung lobes) Cardio: RATE: regular rate RHYTHM: regular rhythm HEART SOUNDS: no click, no gallops, no murmurs and no rubs GI: AUSCULTATION: Yes normoactive bowel sounds PALPATION: Yes Soft to palpation, No Tenderness to palpation present (GI), No Guarding due to palpation present (GI), No Rigid due to palpation, Yes No hepatosplenomegaly present and Yes Rebound tenderness present : BLADDER/KIDNEY EXAM: Yes catheter in place Back/Pelvis: LUMBAR SPINE/LOWER BACK: Yes other soft tissue findings (surgical incision) Extremity: COMMON NORMALS: no clubbing, cyanosis or edema Neuro: SENSORIUM/ORIENTATION: Yes alert, Yes oriented to person, Yes oriented to place and Yes oriented to time CRANIAL NERVES: Yes CN normal except as noted SPEECH: speech normal GAIT: Yes Unable to assess gait SENSORY EXAM: Yes Normal double simultaneous stimulation for sensation MOTOR EXAM: 5/5 motor strength present throughout and Normal motor muscle tone present throughout Psych: ATTITUDE: Yes calm and Yes engaged ACTIVITY/MOTOR BEHAVIOR: Yes appropriate eye contact SPEECH: Yes normal speech (slightly slow) MOOD & AFFECT: Yes euthymic mood Skin: GENERAL SKIN EXAM: no rashes or lesions noted Urinary Catheter Management^: Gonzalez: Cath Placed During This Visit: yes Urinary Catheter Date of Insertion: 09/09/20 Urinary Catheter Time of Insertion: 14:20 Data : 09/09/20 14:26 09/09/20 16:13 A&P Assessment and plan (1) Lower obstructive uropathy: Status: Acute (2) Acute renal failure: Status: Acute (3) Elevated troponin: Status: Acute (4) Acute hyponatremia: Status: Acute (5) Diastolic CHF, chronic: Status: Acute (6) Encounter for postoperative care: Status: Acute (7) Hyperlipidemia: Status: Acute Qualifiers: Hyperlipidemia type: other hyperlipidemia Qualified Code(s): E78.49 - Other hyperlipidemia (8) Hypertension: Status: Acute Qualifiers: Hypertension type: essential hypertension Qualified Code(s): I10 - Essential (primary) hypertension (9) NSTEMI (non-ST elevated myocardial infarction): Status: Acute (10) Abdominal pain: Status: Acute (11) Acute urinary retention: Status: Acute Devengena Brennan is a 65yo man w/ CAD, [place] s/p 7 stents, HTN, HLD, chronic back pain due to L4/L5 Spondylolisthesis s/p L4/L5 fusion w/ laminectomy on 08/28/2020 who presented to the ED on 09/09/2020 w/ complaints of constipation, nausea, vomiting, abdominal pain. Patient is admitted for JERMAN, severe hyponatremia, Acute urinary retention, Obstructive Uropathy, and concern for Elevated Trop T. A gonzalez was placed in the ED prior to admission. Neuro/Psych: No acute issues at this time Respiratory: No acute issues at this time. CV # Elevated Trop T: Cardiology consulted. Despite an elevated delta, it is not clear that he has ACS. Continue his meds, but give heparin subq instead of a drip. Clopidogrel makes him have bleeding gums. - Continue Telemetry monitoring # HTN # HLD # Hx of CAD s/p 7 stents, # NSTEMI on 08/28/2020 admission - Continued his home meds except Lisinopril. GI - Continued Pantoprazole Kidney # JERMAN # Acute urinary retention # Obstructive uropathy # BPH # Severe hyponatremia - Repeat & trend BMP. Continue Telemetry monitoring. Consult Nephrology in the AM. ENdocrine # F/u A1c # BG checks MSK # s/p back surgery. Monitor scar ID # Diarrhea - f/u C. diff and Enteric parasite and bacterial panel. F/u BCx. Heme # Bleeding diathesis - due to Clopidogrel. DVT ppx: Heparin subq GI ppx: PPI Attestations Medical Necessity Statement*: Patient recently monitored for acute renal failure, severe hyponatremia Critical Care Time: Over 90minutes was spent in direct care of the patient Critical Care Time (min): 70 Coding Level of Care Code Acute Electronics Engineering Manager for g Fwd Diagnoses Lower obstructive uropathy N13.9 Acute renal failure N17.9 Elevated troponin R77.8 Acute hyponatremia E87.1 Diastolic CHF, chronic I50.32 Encounter for postoperative care Z48.89 Hyperlipidemia E78.49 Hyperlipidemia type: other hyperlipidemia Hypertension I10 Hypertension type: essential hypertension NSTEMI (non-ST elevated myocardial infarction) I21.4 Abdominal pain R10.9 Acute urinary retention R33.8
--- NOTE | 2020-09-09 23:38 | PC.NURSE ---
arrived from ED via bed, AO x4, follows commands, no c/o at this time
--- NOTE | 2020-09-09 23:40 | ECG_ITS ---
[facility] Test Date: 2020-09-10 Pat Name: Deven Brennan Department: Room: ICU07 Gender: Male Computer Tester: : [id number] Requested By: Krysten Dickson Order Number: [id number] [place] MD: Samy Lovelace M.D. Measurements Intervals [place] Rate: 80 P: 28 [place]: 264 QRS: 24 QRSD: 129 T: -31 QT: 416 QTc: 483 Interpretive Statements SINUS RHYTHM WITH FIRST DEGREE AV BLOCK INFERIOR MYOCARDIAL INFARCTION [40+ ms Q WAVE AND/OR ST/T ABNORMALITY IN II/aVF], OF INDETERMINATE AGE Compared to ECG 09/09/2020 18:29:04 No significant changes Electronically Signed On 09-10-2020 23:42:48 CDT by Samy Lovelace M.D. [id number]
[2020-09-10] VITALS (36 sets, daily range): BP systolic 114–167; BP diastolic 62–88; PULSE 75–95; RESP 10–19; TEMP 36.4–36.9; O2SAT 88–97
--- NOTE | 2020-09-10 00:23 | PC.NURSE ---
Dr. Mullen gave v.o. to draw A1c with morning labs and get covid swab
[2020-09-10 01:38] LABS: Alanine Aminotransferase 22 U/L (0-41); Albumin Level 3.6 g/dL (3.5-5.2); Alkaline Phosphatase 96 IU/L (40-130); Anion Gap 24.1 (5-19); Aspartate Amino Transferase 39 U/L (0-40); Calcium 8.8 mg/dL (8.5-10.5); Carbon Dioxide 15 mmol/L (22-29); Chloride 88 mmol/L (98-107); Globulin 2.6 g/dL (1.3-4.6); Glomerular Filtration Rate 5.6 mL/min (90-130); Glucose 87 mg/dL (65-115); Osmolality Calculated 286 mOsm/kg (285-295); Potassium 3.1 mmol/L (3.5-5.1); Sodium 124 mmol/L (136-145); Total Bilirubin 0.5 mg/dL (0.15-1.2); Total Protein 6.2 g/dL (6.6-8.7)
[2020-09-10 01:41] LABS: Blood Urea Nitrogen 94 mg/dL (8-23)
[2020-09-10 05:14] LABS: Basophils % 0.1 %; Eosinophils % 0.2 %; Hematocrit 35.1 % (42.0-52.0); Lymphocytes # 0.7 10^3/uL (0.8-4.8); Lymphocytes % 5.3 %; Mean Corpuscular Volume 86.5 fL (80-94); Mean Platelet Volume 9.3 fL (7.4-10.4); Monocytes # 1.1 10^3/uL (0.2-0.9); Neutrophils # 10.26 10^3/uL (1.8-7.7); Neutrophils % 84.4 %; Nucleated Red Blood Cells % 0 %; Platelet Count 305 10^3/cmm (130-400); Red Blood Count 4.06 10^6/uL (4.1-5.3); Red Cell Distribution Width 12.4 % (12.1-15.1); White Blood Count 12.2 10^3/uL (4.0-10.0)
[2020-09-10 05:27] LABS: INR 1.27 (0.8-1.2)
[2020-09-10 05:28] LABS: Partial Thromboplastin Time 31.3 SECONDS (23.9-36.7)
[2020-09-10 05:31] LABS: Phosphorus 6.4 mg/dL (2.5-4.5)
[2020-09-10 05:34] LABS: Alanine Aminotransferase 23 U/L (0-41); Albumin Level 3.5 g/dL (3.5-5.2); Alkaline Phosphatase 90 IU/L (40-130); Anion Gap 25.1 (5-19); Aspartate Amino Transferase 40 U/L (0-40); Calcium 8.8 mg/dL (8.5-10.5); Carbon Dioxide 17 mmol/L (22-29); Chloride 90 mmol/L (98-107); Estmated Average Glucose 103; Globulin 2.7 g/dL (1.3-4.6); Glucose 98 mg/dL (65-115); Hemoglobin A1C 5.2 % (4.0-6.0); Magnesium 4.3 mg/dL (1.7-2.3); Osmolality Calculated 293 mOsm/kg (285-295); Potassium 3.1 mmol/L (3.5-5.1); Sodium 129 mmol/L (136-145); Total Bilirubin 0.5 mg/dL (0.15-1.2); Total Protein 6.2 g/dL (6.6-8.7)
[2020-09-10 05:47] LABS: Blood Urea Nitrogen 84 mg/dL (8-23)
--- NOTE | 2020-09-10 08:08 | P.PN_ITS ---
Subjective Subjective: Interval history: awaiting patients Covid test then will see Vitals/I&O/Wt Last Vital Signs Temp 97.6 F 09/09/20 23:22 Pulse 84 09/10/20 06:30 Resp 12 09/10/20 06:30 BP 123/80 09/10/20 06:30 Pulse Ox 91 09/10/20 06:30 09/09/20 09/10/20 09/10/20 22:59 06:59 14:59 Intake Total 500 / 1000 Output Total 8900 / 8900 3150 / 10245 Balance -8400 / -7900 -3150 / -29352 Weight last 48 hrs Weight 205 lb Weight 213 lb Physical Exam Urinary Catheter Management^: Haskins: Cath Placed During This Visit: yes Reason for Continuing Indwelling Catheter: Accurate Measurement of Urinary Ou tput in Critically Ill Patients Urinary Catheter Date of Insertion: 09/09/20 Urinary Catheter Time of Insertion: 14:20 Data : 09/10/20 04:30 09/10/20 04:30 Micro: Microbiology 09/09/20 00:47 Blood Culture - Preliminary Blood SPECIMEN COLLECTED 09/09/20 00:47 Blood Culture - Preliminary Blood SPECIMEN COLLECTED Attestations Medical Necessity Statement*: renal failure Coding Level of Care Code Acute Assistant Men'S Lacrosse Coach for Riya Cowart
--- NOTE | 2020-09-10 08:45 | PM.PN ---
Subjective Subjective: Interval history: Pain, the patient's sodium levels, my continue to increase without any interventions of food or drink or IV fluids given in the ED or admission. Telenephrology was consulted, who stated that she would initiate 5W. Patient has no complaints. He endorses some shortness of breath, but states that he normally does morning exercises with what sounds like an incentive spirometer, and that usually resolves his symptoms of shortness of breath. He denies any fever, chills, chest pain, palpitations, abdominal pain, nausea, vomiting. He states that his symptoms that brought him in have resolved. Later in the afternoon, I received a call, that his stool studies were positive for C. difficile and Vancomycin was initiated. Medications: Reviewed: Yes Vitals/I&O/Wt Last Vital Signs Temp 97.6 F 09/09/20 23:22 Pulse 84 09/10/20 06:30 Resp 12 09/10/20 06:30 BP 123/80 09/10/20 06:30 Pulse Ox 91 09/10/20 06:30 09/09/20 09/10/20 09/10/20 22:59 06:59 14:59 Intake Total 500 / 1000 Output Total 8900 / 8900 3150 / 53530 Balance -8400 / -7900 -3150 / -81914 Weight last 48 hrs Weight 92.986 kg Weight 96.615 kg Physical Exam Const: COMMON NORMALS: alert GENERAL APPEARANCE: cooperative and comfortable ORIENTATION/CONSCIOUSNESS: Yes awake, Yes oriented to person, Yes oriented to place and Yes oriented to time HENMT: COMMON NORMALS: normocephalic and atraumatic HEAD & SCALP: normocephalic and atraumatic FACE & SINUS: normal facial exam MOUTH: Abnormal oral and palatal mucosa present (evidence of formerly bleeding but now dry gums. ) TEETH & GINGIVA: Yes abnormal tooth and associated gingiva (evidence of formerly bleeding but now dry gums. ) THROAT: posterior oropharynx normal Eye: COMMON NORMALS: Equal, round and reactive pupils present and conjunctivae normal CONJUNCTIVA: Yes conjunctivae normal PUPIL: Yes Equal, round and reactive pupils present EOM: No EOM abnormal Neck/C-Spine: COMMON NORMALS: Thyroid normal GENERAL: Yes trachea midline and No anterior neck swelling THYROID: Thyroid normal CAROTIDS: Yes normal carotid upstroke CERVICAL SPINE: Yes cervical ROM normal Resp: AUSCULTATION: diminished lung sounds bilateral (From the middle to the bilateral lower lung lobes) Cardio: COMMON NORMALS: regular rate and regular rhythm RATE: regular rate RHYTHM: regular rhythm HEART SOUNDS: no click, no gallops, no murmurs and no rubs GI: COMMON NORMALS: Soft to palpation and No hepatosplenomegaly present AUSCULTATION: Yes normoactive bowel sounds PALPATION: Yes Soft to palpation, No Tenderness to palpation present (GI), No Guarding due to palpation present (GI), No Rigid due to palpation, Yes No hepatosplenomegaly present and Yes Rebound tenderness present : BLADDER/KIDNEY EXAM: Yes catheter in place Back/Pelvis: LUMBAR SPINE/LOWER BACK: Yes other soft tissue findings (surgical incision) Extremity: COMMON NORMALS: no clubbing, cyanosis or edema Neuro: SENSORIUM/ORIENTATION: Yes alert, Yes oriented to person, Yes oriented to place and Yes oriented to time CRANIAL NERVES: Yes CN normal except as noted SPEECH: speech normal GAIT: Yes Unable to assess gait SENSORY EXAM: Yes Normal double simultaneous stimulation for sensation MOTOR EXAM: 5/5 motor strength present throughout and Normal motor muscle tone present throughout Psych: COMMON NORMALS: speech normal (slightly slow) ATTITUDE: Yes calm and Yes engaged ACTIVITY/MOTOR BEHAVIOR: Yes appropriate eye contact SPEECH: Yes normal speech (slightly slow) MOOD & AFFECT: Yes euthymic mood Skin: COMMON NORMALS: no rashes or lesions noted GENERAL SKIN EXAM: no rashes or lesions noted Urinary Catheter Management^: Gonzalez: Cath Placed During This Visit: yes Reason for Continuing Indwelling Catheter: Accurate Measurement of Urinary Output in Critically Ill Patients Urinary Catheter Date of Insertion: 09/09/20 Urinary Catheter Time of Insertion: 14:20 Data : 09/10/20 04:30 09/11/20 06:07 Micro: Microbiology 09/09/20 00:47 Blood Culture - Preliminary Blood SPECIMEN COLLECTED 09/09/20 00:47 Blood Culture - Preliminary Blood SPECIMEN COLLECTED A&P Assessment and plan (1) Lower obstructive uropathy: Status: Acute (2) Acute renal failure: Status: Acute (3) Elevated troponin: Status: Acute (4) Acute hyponatremia: Status: Acute (5) Diastolic CHF, chronic: Status: Acute (6) Encounter for postoperative care: Status: Acute (7) Hyperlipidemia: Status: Acute Qualifiers: Hyperlipidemia type: other hyperlipidemia Qualified Code(s): E78.49 - Other hyperlipidemia (8) Hypertension: Status: Acute Qualifiers: Hypertension type: essential hypertension Qualified Code(s): I10 - Essential (primary) hypertension (9) NSTEMI (non-ST elevated myocardial infarction): Status: Acute (10) Abdominal pain: Status: Acute (11) Acute urinary retention: Status: Acute Devengena Brennan is a 65yo man w/ CAD, CT s/p 7 stents, HTN, HLD, chronic back pain due to L4/L5 Spondylolisthesis s/p L4/L5 fusion w/ laminectomy on 08/28/2020 who presented to the ED on 09/09/2020 w/ complaints of constipation, nausea, vomiting, abdominal pain. Patient is admitted for JERMAN, severe hyponatremia, Acute urinary retention, Obstructive Uropathy, and concern for Elevated Trop T. A gonzalez was placed in the ED prior to admission that drained 3L of IVF. Neuro/Psych: No acute issues at this time Respiratory: No acute issues at this time. CV # Elevated Trop T due to demand Ischemia: Cardiology consulted following -involvement appreciated. Clopidogrel causes bleeding in his gums. - Continue Telemetry monitoring - Order limited TTE. # HTN # HLD # Hx of CAD s/p 7 stents, # NSTEMI on 08/28/2020 admission - Continued his home meds except Lisinopril. GI - Continued Pantoprazole Kidney # JERMAN # Acute urinary retention # Obstructive uropathy # BPH # Severe hyponatremia - Repeat & trend BMP. Continue Telemetry monitoring. Telenephrology consulted on 09/10/2020, and following. Endocrine # A1c 5.2 # BG checks for now. Will start insulin when needed. MSK # s/p back surgery. Seen by Orthopedic surgery. Monitor scar ID # [id number]. .[email or web address] Colitis - C.diff pcr positive. Enteric parasite and bacterial panel were negative. Heme # Bleeding diathesis - due to Clopidogrel. DVT ppx: Heparin subq GI ppx: PPI Attestations Medical Necessity Statement*: Patient requires continued hospitalization in the ICU at this time due to overcorrection of his hyponatremia, despite no interventions except interim surgeon of a Gonzalez with concerns for the sequelae of overcorrection Critical Care Time: Critical Care Time (min): 40 Coding Level of Care Code Acute Surface Water Manager for Chg Fwd Exam Comprehensive Diagnoses Lower obstructive uropathy N13.9 Acute renal failure N17.9 Elevated troponin R77.8 Acute hyponatremia E87.1 Diastolic CHF, chronic I50.32 Encounter for postoperative care Z48.89 Hyperlipidemia E78.49 Hyperlipidemia type: other hyperlipidemia Hypertension I10 Hypertension type: essential hypertension NSTEMI (non-ST elevated myocardial infarction) I21.4 Abdominal pain R10.9 Acute urinary retention R33.8
--- NOTE | 2020-09-10 09:17 | PC.CHAP ---
Pastoral Care Encounter/Spiritual Assessment Type of Contact [] Declined film developer visit [] Patient/Family/Request visit [] Outpatient visit [] Follow-up visit [] Physician referral [] Code/Alert [x] Routine visit [] Staff referral [] Actively dying [] Patient sleeping [] Family support [] [] Out of room [] Palliative care [] [x] Receiving care in room [] Pre-surgical visit [] Trauma [] Long length of stay [x] ICU visit [] Other: Relational/Emotional Strength [] Patient feels connected with others/family/visitors/staff [] Distress [] Loneliness/isolation [] Abandonment Spirituality of Patient [] Person of [place] [] Attends Taoist of their [place] [] Believes in Prayer [] Reads Bible or Hinduism materials [] There are Spiritual issues to be addressed Ambulatory Care Interventions [x] Prayer [] Active listening [] Non-anxious presence [] Spiritual/emotional support [] Crisis/trauma care [] Spiritual counseling [] Bereavement support [] Provided bereavement packet [] Provided Bible/devotional materials [] Provided toy/stuffed animal, coloring book to patient or family member [] Provided Communion [] Anointing/[place] [] Salvation [x] Completed spiritual assessment [] Other: Impact on Illness or Injury [] Angry [] Fearful [] Anxious [] Often cries [] Exhaustion [] Unable to work [] Unable to attend congregational [] Unable to walk/stand [] Unable to read [] Unable to drive [] Unable to eat/drink [] Unable to sleep [] Unable to be with family [] Patient intubated [] Other: Summary Time spent with patient
--- NOTE | 2020-09-10 09:33 | PM.CONSULT ---
Providers/Reason For Consult Consulting Physician/Specialty*: Afshan Pollock DO, telenephrology Reason for Consult*: Acute kidney injury, hyponatremia Attending Physician: Krysten Dickson MD Primary Care Provider: Richard Forde DO History of Present Illness History of Present Illness Deven Brennan is a 65 year old male presented for evaluation of abdominal pain, N/V, constipation, decreased urine output. Found to have very distended bladder. Haskins placed + post-obstructive diuresis Reports taking ibuprofen for pain since spine surgery 2 weeks ago. Review of Systems Const: Reports: fatigue Resp: Reports: non-productive cough GI: Reports: constipation and change in bowel habits : Reports: difficulty urinating Musc: Reports: back pain and muscle weakness Meds/Allergies Home Medications and Allergies Home Medications Medication Instructions Recorded Confirmed Last Taken Type atorvastatin 80 mg tablet 40 mg PO DAILY 08/11/20 09/09/20 09/09/20 History lisinopril 40 mg tablet 40 mg PO DAILY 08/11/20 09/09/20 09/09/20 History multivitamin 1 tab PO DAILY 08/11/20 09/09/20 09/09/20 History omega-3 fatty acids 1,000 mg 1,000 mg PO DAILY 08/11/20 09/09/20 09/09/20 History capsule Prilosec OTC 20 mg PO DAILY 08/24/20 09/09/20 09/09/20 History gabapentin 100 mg PO PRN PRN 08/24/20 09/09/20 08/27/20 History aspirin 81 mg PO DAILY 30 Days #30 tab 08/30/20 09/09/20 09/09/20 Rx clopidogrel 75 mg PO DAILY 30 Days #30 tab 08/30/20 09/09/20 09/09/20 Rx isosorbide mononitrate 30 mg PO DAILY 30 Days #30 tab 08/30/20 09/09/20 09/09/20 Rx metoprolol succinate 12.5 mg PO DAILY 30 Days #30 tab 08/30/20 09/09/20 09/09/20 Rx nitroglycerin 0.4 mg SUBLINGUAL Q5M PRN 30 Days 08/30/20 09/09/20 Unknown Rx #30 tab potassium chloride 10 meq PO DAILY 09/09/20 09/09/20 09/09/20 History Allergies Allergy/AdvReac Type Severity Reaction Status Date / Time rosuvastatin [From Crestor] Allergy Unknown unknown Verified 09/07/20 11:30 simvastatin [From Zocor] Allergy unknown Verified 09/07/20 11:30 PFSH Acute PFSH: Medical History Atherosclerotic heart disease of [place] coronary artery without angina pectoris CAD (coronary artery disease) Diastolic CHF, chronic History of heart attack 2008 Stress test in 2019 Hyperlipidemia Hypertension Systolic CHF Surgical History History of coronary artery stent placement Family History Father CAD (coronary artery disease) Mother Renal cell carcinoma Social History Smoking and tobacco status: never smoked Alcohol intake: current Vitals/I&O/Wt Last Vital Signs Temp 97.6 F 09/09/20 23:22 Pulse 84 09/10/20 06:30 Resp 12 09/10/20 06:30 BP 123/80 09/10/20 06:30 Pulse Ox 91 09/10/20 06:30 09/09/20 09/10/20 09/10/20 22:59 06:59 14:59 Intake Total 500 / 1000 Output Total 8900 / 8900 3150 / 70763 Balance -8400 / -7900 -3150 / -91558 Weight last 48 hrs Weight 92.986 kg Weight 96.615 kg Physical Exam Urinary Catheter Management^: Haskins: Cath Placed During This Visit: yes Reason for Continuing Indwelling Catheter: Accurate Measurement of Urinary Output in Critically Ill Patients Urinary Catheter Date of Insertion: 09/09/20 Urinary Catheter Time of Insertion: 14:20 Data Labs: Other Labs: phos 6.4, Ca 8.8, albumin 3.5, Mg 4.3 Micro: Micro: Microbiology 09/09/20 00:47 Blood Culture - Pr eliminary Blood SPECIMEN [facility] 09/09/20 00:47 Blood Culture - Pr eliminary Blood SPECIMEN [facility] Imaging^: Echo: Radiologist's impression: 08/29/20 1-Normal left ventricular cavity size. Normal left ventricular systolic function. No regional wall motion abnormalities. Left ventricular ejection fraction is estimated at 60 %. Grade II/IV diastolic dysfunction, moderately elevated filling pressures. 2-The right ventricle is normal in size and function. RVSP could not be calculated due to incomplete tricuspid regurgitation velocity profile. 3-Moderately thickened mitral valve. No mitral valve stenosis. Trace mitral valve regurgitation. 4-Moderate aortic valve calcification. No aortic valve stenosis. Trace aortic valve regurgitation. 5-Mild tricuspid valve regurgitation. 6-There is no pericardial effusion. 7-There are no prior echocardiogram studies to compare. CT Abd/Pel: Radiologist's impression: 1. Markedly distended urinary bladder extending into the mid and lower abdomen. Bowel loops are displaced peripherally about the distended bladder. 2. Air distended transverse colon. No evidence of high-grade small or large bowel obstruction. 3. Air-fluid level within the stomach. 4. No hydronephrosis in either kidney. 5. Slightly prominent prostate measuring 4.2 CM. 6. Tiny right pleural effusion with slight patchy subsegmental atelectasis in the lung bases. CXR: Radiologist's impression: 1. Probable atelectasis over the surface of the left diaphragm and linear atelectasis in the mid right lung. 2. Probable distended urinary bladder. 3. Generalized ileus. A&P Additional A&P Information Impression: 1. Acute kidney injury, improving. Was on ACEi as outpatient and taking NSAIDs 2. Bladder outlet obstruction, post-obstructive diuresis. No hydronephrosis 3. Hyponatremia, rapid autocorrection. Only received 500 ml NSS in ER. D5W started. 4. Hypokalemia Recommend: D5W 150 ml/hr, Q4hr BMP, replace KCl. Consult Attestations Medical Necessity Statement: see above Time Spent in Patient Care: Greater than 35 minutes Coding Level of Care Code Acute [employer] Repairer for Riya Cowart
[2020-09-10] MEDS: docusate sodium 100 mg Capsule PO (09:43)
[2020-09-10] MEDS: metoprolol succinate ER (24 HR) 25 mg Tablet 12.5 MG PO (09:43)
[2020-09-10] MEDS: aspirin 81 mg EC Tablet PO (09:43)
[2020-09-10] MEDS: atorvastatin 40 mg Tablet PO (09:43)
[2020-09-10] MEDS: isosorbide mononitrate ER 30 mg Tablet PO (09:43)
[2020-09-10] MEDS: clopidogrel 75 mg Tablet PO (09:43)
[2020-09-10] MEDS: pantoprazole DR 40 mg Tablet PO (09:43)
[2020-09-10] MEDS: dextrose 5% 250 ML IV (09:44)
--- NOTE | 2020-09-10 10:55 | P.PN_ITS ---
Subjective Subjective: Interval history: Patient is doing well. His creatinine is improving. Vitals/I&O/Wt Last Vital Signs Temp 97.6 F 09/09/20 23:22 Pulse 84 09/10/20 06:30 Resp 12 09/10/20 06:30 BP 123/80 09/10/20 06:30 Pulse Ox 91 09/10/20 06:30 09/09/20 09/10/20 09/10/20 22:59 06:59 14:59 Intake Total 500 / 1000 Output Total 8900 / 8900 3150 / 03636 Balance -8400 / -7900 -3150 / -99041 Weight last 48 hrs Weight 205 lb Weight 213 lb Physical Exam Narrative: EXAM NARRATIVE: GENERAL: Patient is alert, awake and oriented x3. [] NECK: No jugular vein distension. [] HEENT: No cyanosis. No icterus. No pallor. [] HEART: Regular S1 and S2. No murmur, rub or gallop. [] LUNGS: Clear to auscultate bilaterally. [] ABDOMEN: Soft, nontender and nondistended. Positive bowel sounds. No guarding, rebound or tenderness. [] CENTRAL NERVOUS SYSTEM: Grossly nonfocal. [] EXTREMITIES: Lower extremities with 1+ edema bilaterally. Pulses palpable in the lower extremities, both dorsalis pedis and posterior tibial. [] Urinary Catheter Management^: Haskins: Cath Placed During This Visit: yes Reason for Continuing Indwelling Catheter: Accurate Measurement of Urinary Output in Critically Ill Patients Urinary Catheter Date of Insertion: 09/09/20 Urinary Catheter Time of Insertion: 14:20 Data : 09/10/20 04:30 09/11/20 14:43 Micro: Microbiology 09/09/20 00:47 Blood Culture - Preliminary Blood SPECIMEN COLLECTED 09/09/20 00:47 Blood Culture - Preliminary Blood SPECIMEN COLLECTED A&P Assessment and plan (1) Acute urinary retention: Status: Acute (2) Acute renal failure: Status: Acute (3) Elevated troponin: Status: Acute (4) Hyperlipidemia: Status: Acute Qualifiers: Hyperlipidemia type: other hyperlipidemia Qualified Code(s): E78.49 - Other hyperlipidemia (5) Hypertension: Status: Acute Qualifiers: Hypertension type: essential hypertension Qualified Code(s): I10 - Essential (primary) hypertension (6) Troponin level elevated: Status: Acute Patient has presented with acute renal failure and has elevated troponin levels. This is likely secondary to demand ischemia. Patient does not have any complaints of chest pain. Given patient's recent non-ST elevation PA, continue aspirin and Plavix. Receiving IV fluids. Creatinine is improving. Continue beta-madi. Thank you for involving us with care of this patient. We will continue to follow. Please call with questions. Attestations Medical Necessity Statement*: Care expected to cross 2 midnights. Coding Level of Care Code Acute [employer] Machine Offbearer for Riya Cowart Diagnoses Acute urinary retention R33.8 Acute renal failure N17.9 Elevated troponin R77.8 Hyperlipidemia E78.49 Hyperlipidemia type: other hyperlipidemia Hypertension I10 Hypertension type: essential hypertension Troponin level elevated R77.8
[2020-09-10] MEDS: dextrose 5% 1,000 ML 150 ML IV ×2 (11:08→17:10)
[2020-09-10 12:33] LABS: Anion Gap 20.4 (5-19); Blood Urea Nitrogen 70 mg/dL (8-23); Calcium 9.1 mg/dL (8.5-10.5); Carbon Dioxide 21 mmol/L (22-29); Chloride 92 mmol/L (98-107); Glomerular Filtration Rate 10.4 mL/min (90-130); Glucose 150 mg/dL (65-115); Osmolality Calculated 293 mOsm/kg (285-295); Potassium 3.4 mmol/L (3.5-5.1); Sodium 130 mmol/L (136-145)
[2020-09-10 14:24] LABS: Coronavirus Test Green County Not Detected
[2020-09-10 16:16] LABS: Blood Urea Nitrogen 52 mg/dL (8-23); Calcium 9.2 mg/dL (8.5-10.5); Carbon Dioxide 23 mmol/L (22-29); Chloride 92 mmol/L (98-107); Glomerular Filtration Rate 18.8 mL/min (90-130); Glucose 152 mg/dL (65-115); Osmolality Calculated 287 mOsm/kg (285-295); Sodium 130 mmol/L (136-145)
[2020-09-10 19:15] LABS: Anion Gap 14.8 (5-19); Blood Urea Nitrogen 42 mg/dL (8-23); Calcium 8.8 mg/dL (8.5-10.5); Carbon Dioxide 21 mmol/L (22-29); Chloride 96 mmol/L (98-107); Glomerular Filtration Rate 28.5 mL/min (90-130); Glucose 152 mg/dL (65-115); Osmolality Calculated 281 mOsm/kg (285-295); Sodium 129 mmol/L (136-145)
[2020-09-10 19:18] LABS: Potassium 2.8 mmol/L (3.5-5.1)
[2020-09-10] MEDS: potassium chloride premix 100 ML 25 MEQ IV (19:37)
[2020-09-10] MEDS: sennosides 8.6 mg Tablet 17.2 MG PO (20:53)
[2020-09-11] VITALS (35 sets, daily range): BP systolic 110–167; BP diastolic 63–86; PULSE 76–96; RESP 12–25; TEMP 36.6–36.8; O2SAT 92–96
[2020-09-11] MEDS: dextrose 5% 1,000 ML 150 ML IV ×3 (00:09→12:42)
[2020-09-11] MEDS: potassium chloride ER 20 mEq Tablet 40 MEQ PO ×3 (01:24→17:10)
[2020-09-11] MEDS: morphine 4 mg/mL SDV 1 mL 2 MG IVP ×2 (04:25→20:23)
[2020-09-11] MEDS: acetaminophen 325 mg Tablet 650 MG PO ×2 (06:09→10:19)
[2020-09-11 06:51] LABS: INR 1.24 (0.8-1.2)
[2020-09-11 07:00] LABS: Alanine Aminotransferase 25 U/L (0-41); Albumin Level 3.4 g/dL (3.5-5.2); Alkaline Phosphatase 94 IU/L (40-130); Anion Gap 12.2 (5-19); Aspartate Amino Transferase 39 U/L (0-40); Blood Urea Nitrogen 21 mg/dL (8-23); Calcium 9.1 mg/dL (8.5-10.5); Carbon Dioxide 24 mmol/L (22-29); Chloride 95 mmol/L (98-107); Globulin 2.7 g/dL (1.3-4.6); Glomerular Filtration Rate 66.8 mL/min (90-130); Glucose 151 mg/dL (65-115); Osmolality Calculated 272 mOsm/kg (285-295); Phosphorus 1.3 mg/dL (2.5-4.5); Potassium 3.2 mmol/L (3.5-5.1); Sodium 128 mmol/L (136-145); Total Bilirubin 0.8 mg/dL (0.15-1.2); Total Protein 6.1 g/dL (6.6-8.7)
[2020-09-11] MEDS: atorvastatin 40 mg Tablet PO (08:30)
[2020-09-11] MEDS: docusate sodium 100 mg Capsule PO (08:30)
[2020-09-11] MEDS: metoprolol succinate ER (24 HR) 25 mg Tablet 12.5 MG PO (08:30)
[2020-09-11] MEDS: pantoprazole DR 40 mg Tablet PO (08:31)
[2020-09-11] MEDS: aspirin 81 mg EC Tablet PO (08:31)
[2020-09-11] MEDS: clopidogrel 75 mg Tablet PO (08:31)
[2020-09-11] MEDS: isosorbide mononitrate ER 30 mg Tablet PO (08:31)
--- NOTE | 2020-09-11 10:32 | PC.NURSE ---
has discomfort in back requesting Tylenol at this time
--- NOTE | 2020-09-11 12:22 | P.CONIM_ITS ---
Providers/Reason For Consult Consulting Physician/Specialty*: hospitalist Reason for Consult*: post op Attending Physician: Krysten Dickson MD Primary Care Provider: Richard Forde DO History of Present Illness History of Present Illness Deven Brennan is a 65 year old male w/ CAD, NC s/p 7 stents, HTN, HLD, chronic back pain due to L4/L5 Spondylolisthesis s/p L4/L5 fusion w/ laminectomy on 08/28/2020 who presented to the ED on 09/09/2020 w/ complaints of constipation, na usea, vomiting, abdominal pain. Patient's hospitalization from 08/28 - 08/30/2020 for his L4/L5 fusion w/ laminectomy on 08/28/2020 was complicated by an NSTEMI requiring ACS protocol and for which he was seen by Cardiology w/ the plans for a LHC in 2 weeks post d/c in once healed from surgery. He was d/c'ed on aspirin statin, plavix, imdur, metoprolol. The patient states that he had small amounts of watery stools up to twice per day, and intermittent urinary dribbling combined with periods of lack of urination. He endorses abdominal pain, poor appetite, fatigue, malaise, intermittent shortness of breath, episodes of confusion, dysuria, increased urinary urgency/frequency, as well as bleeding at the incision site the day prior to presentation states that he could not go for his regular walks. He denies any episodes of chest pain since discharge, but did endorse palpitations. He endorses chronic lightheadedness with changes in position for approximately 2 years. He denies visual changes, LOC, fever, or chills. Complains that he is gums blee since he has been on Plavix, and that it happened to him in 2007, when he had to take Plavix for a period if time. In the ED, he vomited bilious liquid. His vital signs were within normal limits with the exception of episodes of tachypnea. He had a leukocytosis of 15, a Na of 103 (Na of 136 on 08/30/2020), and an JERMAN w/ Cr of 13.8 (Baseline Cr of 0.9 on 08/30/2020). His UA was negative for a UTI and his lipase levels were 106. His initial CXR/abdominal XR showed probable atelectasis in the lung, concern for distended urinary bladder and generalized ileus. A CT abd/pelvis done that showed a markedly distended urinary bladder extended into the mid and lower abdomen, with bowel loops displaced preferably around the bladder, air-fluid lev el within the stomach, but no evidence of high-grade small bowel obstruction, or hydronephrosis in the kidneys. It did also show an enlarged prostate measuring 4.2 cm, and a tiny right pleural effusion with atelectasis in the lung bases. A gonzalez catheter was placed that drained 3L of urine. Repeat Na was 113 after drainage of urine and without administration of IVF. Review of Systems General: Reports: 10 or more systems reviewed and unremarkable except in HPI and below Const: Reports: change in appetite (poor), fatigue and malaise; Denies: fever(s), chills or body aches Eyes: Denies: change in vision or blurry vision ENMT: Reports: other (bleeding gums); Denies: throat pain, hoarseness, mouth pain, swelling of lips/tongue, ear or mastoid pain or ear discharge Card: Reports: palpitations and lightheadedness (chronic); Denies: chest pain, irregular heart rhythm, edema, swelling of feet/ankles or syncope Resp: Reports: dyspnea and non-productive cough; Denies: productive cough, wheezing or pain on inspiration GI: Reports: abdominal pain, nausea, vomiting, constipation and change in bowel habits : Reports: difficulty urinating, dysuria, urinary frequency, urinary urgency and oliguria; Denies: flank pain, urinary hesitancy or hematuria Musc: Reports: back pain and muscle weakness; Denies: neck pain, extremity pain, extremity swelling, joint pain, joint swelling, joint redness, joint warmth, limited range of motion or muscle cramps Skin/Breast: Reports: other (surgical incision site at the back); Denies: rash, pruritus, erythema or skin tenderness Neuro: Reports: headache(s) and confusion; Denies: numbness in extremities or weakness in extremities Psych: Denies: anxiety, depression, suicidal ideation or homicidal ideation Endo: Denies: cold intolerance or heat intolerance Kemal/Lymph: Reports: easy bruising and easy bleeding (bleeing in his gums. ) All/Imm: Denies: itchy eyes Meds/Allergies Home Medications and Allergies Home Medications Medication Instructions Recorded Confirmed Last Taken Type atorvastatin 80 mg tablet 40 mg PO DAILY 08/11/20 09/09/20 09/09/20 History lisinopril 40 mg tablet 40 mg PO DAILY 08/11/20 09/09/20 09/09/20 History multivitamin 1 tab PO DAILY 08/11/20 09/09/20 09/09/20 History omega-3 fatty acids 1,000 mg 1,000 mg PO DAILY 08/11/20 09/09/20 09/09/20 History capsule Prilosec OTC 20 mg PO DAILY 08/24/20 09/09/20 09/09/20 History gabapentin 100 mg PO PRN PRN 08/24/20 09/09/20 08/27/20 History aspirin 81 mg PO DAILY 30 Days #30 tab 08/30/20 09/09/20 09/09/20 Rx clopidogrel 75 mg PO DAILY 30 Days #30 tab 08/30/20 09/09/20 09/09/20 Rx isosorbide mononitrate 30 mg PO DAILY 30 Days #30 tab 08/30/20 09/09/20 09/09/20 Rx metoprolol succinate 12.5 mg PO DAILY 30 Days #30 tab 08/30/20 09/09/20 09/09/20 Rx nitroglycerin 0.4 mg SUBLINGUAL Q5M PRN 30 Days 08/30/20 09/09/20 Unknown Rx #30 tab potassium chloride 10 meq PO DAILY 09/09/20 09/09/20 09/09/20 History Allergies Allergy/AdvReac Type Severity Reaction Status Date / Time rosuvastatin [From Crestor] Allergy Unknown unknown Verified 09/07/20 11:30 simvastatin [From Zocor] Allergy unknown Verified 09/07/20 11:30 Current Medications Current Medications Generic Name Dose Route Start Last Admin Trade Name Freq PRN Reason Stop Dose Admin Acetaminophen 650 mg 09/09/20 23:40 09/11/20 10:19 Acetaminophen 325 Mg Tablet PO 650 mg Q6H PRN Administration MILD PAIN Aspirin 81 mg 09/10/20 09:00 09/11/20 08:31 Aspirin 81 Mg Ec Tablet PO 81 mg DAILY KERRIE Administration Atorvastatin Calcium 40 mg 09/10/20 09:00 09/11/20 08:30 Atorvastatin 40 Mg Tablet PO 40 mg DAILY KERRIE Administration Clopidogrel Bisulfate 75 mg 09/10/20 09:00 09/11/20 08:31 Clopidogrel 75 Mg Tablet PO 75 mg DAILY KERRIE Administration Docusate Sodium 100 mg 09/10/20 09:00 09/11/20 08:30 Docusate Sodium 100 Mg Capsule PO 100 mg BID KERRIE Administration Dextrose 1,000 mls @ 150 mls/hr 09/10/20 09:30 09/11/20 06:10 D5w IV 150 mls/hr .Q6H40M KERRIE Administration Isosorbide Mononitrate 30 mg 09/10/20 09:00 09/11/20 08:31 Isosorbide Mononitrate Er 30 Mg Tablet PO 30 mg DAILY KERRIE Administration Metoprolol Succinate 12.5 mg 09/10/20 09:00 09/11/20 08:30 Metoprolol Succinate Er (24 Hr) 25 Mg Tablet PO 12.5 mg DAILY KERRIE Administration Morphine Sulfate 2 mg 09/09/20 23:35 09/11/20 04:25 Morphine 4 Mg/Ml Sdv 1 Ml IVP 2 mg Q4H PRN Administration SEVERE PAIN Pantoprazole Sodium 40 mg 09/10/20 09:00 09/11/20 08:[address] 40 Mg Tablet PO 40 mg DAILY KERRIE Administration Senna 17.2 mg 09/10/20 21:00 09/10/20 20:53 Sennosides 8.6 Mg Tablet PO 17.2 mg BEDTIME KERRIE Administration Vancomycin HCl 125 mg 09/10/20 21:00 09/11/20 08:30 Vancomycin 1,000 Mg Oral April (Btl) PO 125 mg QID KERRIE Administration PFSH Acute PFSH: Medical History Atherosclerotic heart disease of [place] coronary artery without angina pectoris CAD (coronary artery disease) Diastolic CHF, chronic History of heart attack 2008 Stress test in 2019 Hyperlipidemia Hypertension Systolic CHF Surgical History History of coronary artery stent placement Family History Father CAD (coronary artery disease) Mother Renal cell carcinoma Social History (Reviewed 09/10/20 @ 10:50 by Alicia Bernal Smoking and tobacco status: never smoked Alcohol intake: current Dietary Habits: Current diet type/program: regular Vitals/I&O/Wt Last Vital Signs Temp 98.3 F 09/11/20 04:00 Pulse 91 09/11/20 10:00 Resp 20 H 09/11/20 10:00 BP 157/75 09/11/20 08:00 Pulse Ox 95 09/11/20 10:00 09/10/20 09/11/20 09/11/20 22:59 06:59 14:59 Intake Total 905 / 1155 2152.5 / 3307.5 200 / 200 Output Total 2900 / 5100 1300 / 6400 Balance -1995 / -3945 852.5 / -3092.5 200 / 200 Weight last 48 hrs Weight 202 lb 12.8 oz Weight 205 lb Physical Exam Narrative: EXAM NARRATIVE: CONSTITUTIONAL: The patient is a normal appearing [] in no apparent distress. GENERAL: Patient in no acute distress. CARDIAC: Regular rate and rhythm. CHEST: Normal inspiratory effort, normal respiratory rate. ABDOMEN: Soft and nontender. SKIN: Clear, warm and intact. NEURO?PSYCH: The patient is alert and oriented to person, place and time. Sensorv /SILT Motor StrengthShoulder abduction C5 5/5Wrist extension C6 5/5Elbow extension C7 5/5Hand Pulp Mixer C8 5/5Finger abduction T15/5 Radial/ Ulnar/ Median n intact LowerSensory (SILT)Motor StrengthHin flexion L2/3Ant/inner thigh 5/5Hip adduction L2/3 5/5Knee extension L4 Lat thigh, 5/5Toe dorsiflexion L5 5/5Ankle dorsiflexion L5/ Q92Pevxdhv flexion S1 5/5 DTRBleeps 2+Triceps 2+Brachioradialis 2+Patellar 2+Achilles 2+ MUSCULOSKELETAL: [] UPPEREXTREMITIES: The patient had full active ROM in fingers, wrist, elbow, and shoulder. The patient demonstrated ability to fully flex/extend/abduct/adduct fingers, make ok sign, cross 2nd/3rd digits, extend 1st digit fully.. Radial pulse 2+, CR<2 seconds. LOWER EXTREMITIES: Pt has full, active ROM of toes, ankle, knee, and hip. Dorsalis pedis/posterior tibialis pulses 2+, CR<2 seconds. SPINE: Skin warm, dry, intact. Urinary Catheter Management^: Gonzalez: Cath Placed During This Visit: yes Reason for Continuing Indwelling Catheter: Acute Urinary Retention or Obstru ction Urinary Catheter Date of Insertion: 09/09/20 Urinary Catheter Time of Insertion: 14:20 Data Micro: Micro: Microbiology 09/09/20 00:47 Blood Culture - Pr eliminary Blood NEGATIVE TO DANNI E 09/09/20 00:47 Blood Culture - Pr eliminary Blood NEGATIVE TO DANNI E 09/10/20 10:40 Enteric Pathogens (PCR) - Final Stool - Stool Asp irate C.difficile Toxin B Gene (PCR) - Fin al A&P Assessment and plan (1) Spondylolisthesis at L4-L5 level: Patient is approximate 2 weeks status post lumbar fusion. At this point my plan is to change dressing and keep stitches and probably for another week with everything that is going on. Status: Resolved Consult Attestations Medical Necessity Statement: medical management Coding Level of Care Code Acute Staff Certified Nurse Midwife for Riya Cowart Diagnoses Spondylolisthesis at L4-L5 level M43.16
--- NOTE | 2020-09-11 12:28 | PC.NURSE ---
or nurse here per Dr Smith with dressing changed to back
--- NOTE | 2020-09-11 13:19 | P.PN_ITS ---
Subjective Subjective: Interval history: feels better Medications: Reviewed: Yes Vitals/I&O/Wt Last Vital Signs Temp 98.3 F 09/11/20 12:00 Pulse 91 09/11/20 12:00 Resp 20 H 09/11/20 12:00 BP 157/75 09/11/20 08:00 Pulse Ox 95 09/11/20 10:00 09/10/20 09/11/20 09/11/20 22:59 06:59 14:59 Intake Total 905 / 1155 2152.5 / 3307.5 1180 / 1180 Output Total 2900 / 5100 1300 / 6400 1000 / 1000 Balance -1995 / -3945 852.5 / -3092.5 180 / 180 Weight last 48 hrs Weight 91.989 kg Weight 92.986 kg Physical Exam Urinary Catheter Management^: Haskins: Cath Placed During This Visit: yes Reason for Continuing Indwelling Catheter: Acute Urinary Retention or Obstructi on Urinary Catheter Date of Insertion: 09/09/20 Urinary Catheter Time of Insertion: 14:20 Data : 09/10/20 04:30 09/11/20 06:07 Micro: Microbiology 09/10/20 10:40 Enteric Pathogens (PCR) - Final Stool - Stool Aspirate Parasite Antigen Panel - Final C.difficile Toxin B Gene (PCR) - Final 09/09/20 00:47 Blood Culture - Preliminary Blood NEGATIVE TO DATE 09/09/20 00:47 Blood Culture - Preliminary Blood NEGATIVE TO DATE A&P Additional A&P Information 1. Acute kidney injury, resolved. Was on ACEi as outpatient and taking NSAIDs 2. Bladder outlet obstruction, post-obstructive diuresis. No hydronephrosis. 3. Hyponatremia, rapid auto-correction. Serum sodium has stabilized. 4. Hypokalemia, hypophospatemia Recommend:replace KCl and Kphos. D/C IV D5W. Voiding trial over weekend. Attestations Medical Necessity Statement*: see above Time Spent in Patient Care: 16 - 35 minutes Coding Level of Care Code Acute Banking Pin Adjuster for Riya Cowart
[2020-09-11 14:43] LABS: Magnesium 2.4 mg/dL (1.7-2.3)
--- NOTE | 2020-09-11 15:05 | P.PN_ITS ---
Subjective Subjective: Interval history: The patient was resting comfortably. He endorsed some shortness of breath, and states that he needs to do his exercises with his incentive spirometer, not to feel short of breath. He states that he had a liquid BM overnight. He denies any fever, chills, dizziness, lightheadedness, CP, palpitation, abdominal pain, nausea, vomiting, visual changes, hallucinations, difficulty swallowing, motor deficits. Medications: Reviewed: Yes Vitals/I&O/Wt Last Vital Signs Temp 98.3 F 09/11/20 12:00 Pulse 76 09/11/20 14:00 Resp 16 09/11/20 14:00 BP 110/65 09/11/20 14:00 Pulse Ox 96 09/11/20 14:00 09/11/20 09/11/20 09/11/20 06:59 14:59 22:59 Intake Total 2152.5 / 3307.5 1180 / 1180 Output Total 1300 / 6400 1999 / 1999 Balance 852.5 / -3092.5 -820 / -820 Weight last 48 hrs Weight 91.989 kg Weight 92.986 kg Physical Exam Const: COMMON NORMALS: alert GENERAL APPEARANCE: cooperative and comfortable ORIENTATION/CONSCIOUSNESS: Yes awake, Yes oriented to person, Yes oriented to place and Yes oriented to time HENMT: COMMON NORMALS: normocephalic and atraumatic HEAD & SCALP: normocephalic and atraumatic FACE & SINUS: normal facial exam MOUTH: Abnormal oral and palatal mucosa present (evidence of formerly bleeding but now dry gums. ) TEETH & GINGIVA: Yes abnormal tooth and associated gingiva (evidence of formerly bleeding but now dry gums. ) THROAT: posterior oropharynx normal Eye: COMMON NORMALS: Equal, round and reactive pupils present and conjunctivae normal CONJUNCTIVA: Yes conjunctivae normal PUPIL: Yes Equal, round and reactive pupils present EOM: No EOM abnormal Neck/C-Spine: COMMON NORMALS: Thyroid normal GENERAL: Yes trachea midline and No anterior neck swelling THYROID: Thyroid normal CAROTIDS: Yes normal carotid upstroke CERVICAL SPINE: Yes cervical ROM normal Resp: AUSCULTATION: diminished lung sounds bilateral (From the middle to the bilateral lower lung lobes) Cardio: COMMON NORMALS: regular rate and regular rhythm RATE: regular rate RHYTHM: regular rhythm HEART SOUNDS: no click, no gallops, no murmurs and no rubs GI: COMMON NORMALS: Soft to palpation and No hepatosplenomegaly present AUSCULTATION: Yes normoactive bowel sounds PALPATION: Yes Soft to palpation, No Tenderness to palpation present (GI), No Guarding due to palpation present (GI), No Rigid due to palpation, Yes No hepatosplenomegaly present and Yes Rebound tenderness present : BLADDER/KIDNEY EXAM: Yes catheter in place Back/Pelvis: LUMBAR SPINE/LOWER BACK: Yes other soft tissue findings (surgical incision) Extremity: COMMON NORMALS: no clubbing, cyanosis or edema Neuro: SENSORIUM/ORIENTATION: Yes alert, Yes oriented to person, Yes oriented to place and Yes oriented to time CRANIAL NERVES: Yes CN normal except as noted SPEECH: speech normal GAIT: Yes Unable to assess gait SENSORY EXAM: Yes Normal double simultaneous stimulation for sensation MOTOR EXAM: 5/5 motor strength present throughout and Normal motor muscle tone present throughout Psych: COMMON NORMALS: speech normal (slightly slow) ATTITUDE: Yes calm and Yes engaged ACTIVITY/MOTOR BEHAVIOR: Yes appropriate eye contact SPEECH: Yes normal speech (slightly slow) MOOD & AFFECT: Yes euthymic mood Skin: COMMON NORMALS: no rashes or lesions noted GENERAL SKIN EXAM: no rashes or lesions noted Urinary Catheter Management^: Gonzalez: Cath Placed During This Visit: yes Reason for Continuing Indwelling Catheter: Accurate Measurement of Urinary Output in Critically Ill Patients Urinary Catheter Date of Insertion: 09/09/20 Urinary Catheter Time of Insertion: 14:20 Data : 09/10/20 04:30 09/11/20 14:43 Micro: Microbiology 09/10/20 10:40 Enteric Pathogens (PCR) - Final Stool - Stool Aspirate Parasite Antigen Panel - Final C.difficile Toxin B Gene (PCR) - Final 09/09/20 00:47 Blood Culture - Preliminary Blood NEGATIVE TO DATE 09/09/20 00:47 Blood Culture - Preliminary Blood NEGATIVE TO DATE A&P Assessment and plan (1) Lower obstructive uropathy: Status: Acute (2) Acute renal failure: Status: Acute (3) Elevated troponin: Status: Acute (4) Acute hyponatremia: Status: Acute (5) Diastolic CHF, chronic: Status: Acute (6) Encounter for postoperative care: Status: Acute (7) Hyperlipidemia: Status: Acute Qualifiers: Hyperlipidemia type: other hyperlipidemia Qualified Code(s): E78.49 - Other hyperlipidemia (8) Hypertension: Status: Acute Qualifiers: Hypertension type: essential hypertension Qualified Code(s): I10 - Essential (primary) hypertension (9) NSTEMI (non-ST elevated myocardial infarction): Status: Acute (10) Abdominal pain: Status: Acute (11) Acute urinary retention: Status: Acute Deven Brennan is a 65yo man w/ CAD, [place] s/p 7 stents, HTN, HLD, chronic back pain due to L4/L5 Spondylolisthesis s/p L4/L5 fusion w/ laminectomy on 08/28/2020 who presented to the ED on 09/09/2020 w/ complaints of constipation, nausea, vomiting, abdominal pain. Patient is admitted for JERMAN, severe hyponatremia, Acute urinary retention, Obstructive Uropathy, and concern for Elevated Trop T. A gonzalez was placed in the ED prior to admission that drained 3L of IVF. Neuro/Psych: No acute issues at this time Respiratory: No acute issues at this time. CV # Elevated Trop T due to demand Ischemia: Cardiology consulted following - involvement appreciated. Per patient, Clopidogrel causes bleeding in his gums. - Continue Telemetry monitoring - Order limited TTE. # HTN # HLD # Hx of CAD s/p 7 stents, # NSTEMI on 08/28/2020 admission - Continued his home meds of aspirin, atorvastatin, clopidogrel, Imdur, & Toprol-XL, except Lisinopril. GI - Continued Pantoprazole Kidney # JERMAN # Acute urinary retention # Obstructive uropathy # BPH # Severe hyponatremia - Repeat & trend BMP. Continue Telemetry monitoring. Telenephrology consulted on 09/10/2020, for the patient's hyponatremia which corrected rapidly 113-130, so D5W was initiated. Per discussion with telenephrology on 09/11, DC'd D5W, given that the patient has no symptoms. Endocrine # A1c 5.2 # BG checks for now. Will start insulin when needed. MSK # s/p back surgery. Seen by Orthopedic surgery. Monitor scar ID # C. diff Colitis - C.diff pcr positive. Enteric parasite and bacterial panel were negative. Oral vancomycin initiated on 09/10. Heme # Bleeding diathesis - due to Clopidogrel. DVT ppx: Heparin subq GI ppx: PPI Dispo: Transfer to floor. Attestations Medical Necessity Statement*: Patient requires further monitoring for his hyponatremia and potentional symptoms. He needs monitoring for his C. difficile. Time Spent in Patient Care: Greater than 35 minutes I spent over 35 minutes of [id number] time with this patient and actively managing his medical conditions.. Coding Level of Care Code Acute International First Officer for Shyann Fwd Exam Comprehensive Diagnoses Lower obstructive uropathy N13.9 Acute renal failure N17.9 Elevated troponin R77.8 Acute hyponatremia E87.1 Diastolic CHF, chronic I50.32 Encounter for postoperative care Z48.89 Hyperlipidemia E78.49 Hyperlipidemia type: other hyperlipidemia Hypertension I10 Hypertension type: essential hypertension NSTEMI (non-ST elevated myocardial infarction) I21.4 Abdominal pain R10.9 Acute urinary retention R33.8
[2020-09-11 16:16] LABS: Anion Gap 11.5 (5-19); Blood Urea Nitrogen 13 mg/dL (8-23); Calcium 8.9 mg/dL (8.5-10.5); Carbon Dioxide 25 mmol/L (22-29); Chloride 95 mmol/L (98-107); Glomerular Filtration Rate 84.2 mL/min (90-130); Glucose 145 mg/dL (65-115); Osmolality Calculated 269 mOsm/kg (285-295); Potassium 3.5 mmol/L (3.5-5.1); Sodium 128 mmol/L (136-145)
--- NOTE | 2020-09-11 19:57 | P.PN_ITS ---
Subjective Subjective: Interval history: Patient is overall doing well. Creatinine has normalized. Has excellent urine output. Vitals/I&O/Wt Last Vital Signs Temp 98.3 F 09/11/20 18:11 Pulse 91 09/11/20 18:11 Resp 23 H 09/11/20 18:00 BP 140/82 09/11/20 18:11 Pulse Ox 96 09/11/20 18:00 09/11/20 09/11/20 09/11/20 06:59 14:59 22:59 Intake Total 2152.5 / 3307.5 1180 / 1180 300 / 1480 Output Total 1300 / 6400 1999 / 1999 800 / 2800 Balance 852.5 / -3092.5 -820 / -820 -500 / -1320 Weight last 48 hrs Weight 202 lb 12.8 oz Weight 205 lb Physical Exam Narrative: EXAM NARRATIVE: GENERAL: Patient is alert, awake and oriented x3. [] NECK: No jugular vein distension. [] HEENT: No cyanosis. No icterus. No pallor. [] HEART: Regular S1 and S2. No murmur, rub or gallop. [] LUNGS: Clear to auscultate bilaterally. [] ABDOMEN: Soft, nontender and nondistended. Positive bowel sounds. No guarding, rebound or tenderness. [] CENTRAL NERVOUS SYSTEM: Grossly nonfocal. [] EXTREMITIES: Lower extremities with 1+ edema bilaterally. Pulses palpable in the lower extremities, both dorsalis pedis and posterior tibial. [] Urinary Catheter Management^: Haskins: Cath Placed During This Visit: yes Reason for Continuing Indwelling Catheter: Accurate Measurement of Urinary Output in Critically Ill Patients Urinary Catheter Date of Insertion: 09/09/20 Urinary Catheter Time of Insertion: 14:20 Data : 09/10/20 04:30 09/11/20 14:43 Micro: Microbiology 09/10/20 10:40 Enteric Pathogens (PCR) - Final Stool - Stool Aspirate Parasite Antigen Panel - Final C.difficile Toxin B Gene (PCR) - Final 09/09/20 00:47 Blood Culture - Preliminary Blood NEGATIVE TO DATE 09/09/20 00:47 Blood Culture - Preliminary Blood NEGATIVE TO DATE A&P Assessment and plan (1) Acute urinary retention: Status: Acute (2) Acute renal failure: Status: Acute (3) Elevated troponin: Status: Acute (4) Hyperlipidemia: Status: Acute Qualifiers: Hyperlipidemia type: other hyperlipidemia Qualified Code(s): E78.49 - Other hyperlipidemia (5) Hypertension: Status: Acute Qualifiers: Hypertension type: essential hypertension Qualified Code(s): I10 - Essential (primary) hypertension (6) Troponin level elevated: Status: Acute Patient has presented with acute renal failure and has elevated troponin levels. This is likely secondary to demand ischemia. Patient does not have any complaints of chest pain. Continue conservative management Given patient's recent non-ST elevation CO, continue aspirin and Plavix. Creatinine has normalized. Continue beta-madi. Thank you for involving us with care of this patient. We will sign off. Please call with questions. Outpatient follow-up with Dr. Huerta in the clinic. Attestations Medical Necessity Statement*: Care expected to cross 2 midnights. Coding Level of Care Code Acute Automotive Sales Representative for [facility]nad Diagnoses Acute urinary retention R33.8 Acute renal failure N17.9 Elevated troponin R77.8 Hyperlipidemia E78.49 Hyperlipidemia type: other hyperlipidemia Hypertension I10 Hypertension type: essential hypertension Troponin level elevated R77.8
[2020-09-11] MEDS: sennosides 8.6 mg Tablet 17.2 MG PO (20:24)
[2020-09-12] VITALS (19 sets, daily range): BP systolic 110–162; BP diastolic 59–86; PULSE 78–105; RESP 13–25; TEMP 36.6–37; O2SAT 93–98
[2020-09-12] MEDS: morphine 4 mg/mL SDV 1 mL 2 MG IVP (01:39)
[2020-09-12] MEDS: acetaminophen 325 mg Tablet 650 MG PO (01:51)
[2020-09-12 06:07] LABS: INR 1.27 (0.8-1.2)
[2020-09-12 06:24] LABS: Alanine Aminotransferase 25 U/L (0-41); Albumin Level 3.1 g/dL (3.5-5.2); Alkaline Phosphatase 83 IU/L (40-130); Anion Gap 15.5 (5-19); Aspartate Amino Transferase 38 U/L (0-40); Blood Urea Nitrogen 9 mg/dL (8-23); Calcium 8.7 mg/dL (8.5-10.5); Carbon Dioxide 24 mmol/L (22-29); Chloride 99 mmol/L (98-107); Globulin 2.7 g/dL (1.3-4.6); Glomerular Filtration Rate 96.4 mL/min (90-130); Glucose 107 mg/dL (65-115); Magnesium 1.7 mg/dL (1.7-2.3); Osmolality Calculated 277 mOsm/kg (285-295); Phosphorus 1.7 mg/dL (2.5-4.5); Potassium 4.5 mmol/L (3.5-5.1); Sodium 134 mmol/L (136-145); Total Bilirubin 0.7 mg/dL (0.15-1.2); Total Protein 5.8 g/dL (6.6-8.7)
[2020-09-12] MEDS: metoprolol succinate ER (24 HR) 25 mg Tablet 12.5 MG PO (08:02)
[2020-09-12] MEDS: pantoprazole DR 40 mg Tablet PO (08:02)
[2020-09-12] MEDS: docusate sodium 100 mg Capsule PO ×2 (08:02→18:31)
[2020-09-12] MEDS: isosorbide mononitrate ER 30 mg Tablet PO (08:02)
[2020-09-12] MEDS: clopidogrel 75 mg Tablet PO (08:02)
[2020-09-12] MEDS: atorvastatin 40 mg Tablet PO (08:02)
[2020-09-12] MEDS: aspirin 81 mg EC Tablet PO (08:02)
[2020-09-12 09:13] LABS: Basophils # 0.1 10^3/uL (0.0-0.1); Basophils % 0.5 %; Eosinophils # 0.2 10^3/uL (0.0-0.8); Eosinophils % 1.3 %; Hematocrit 36.8 % (42.0-52.0); Hemoglobin 12.7 g/dL (11.7-16.6); Lymphocytes # 1.3 10^3/uL (0.8-4.8); Lymphocytes % 9.9 %; Mean Corpuscular HGB Conc 34.5 g/dL (30.0-36.0); Mean Corpuscular Hemoglobin 32.9 pg (28.0-34.0); Mean Corpuscular Volume 95.3 fL (80-94); Mean Platelet Volume 10.5 fL (7.4-10.4); Monocytes # 1.4 10^3/uL (0.2-0.9); Monocytes % 10.8 %; Neutrophils # 9.78 10^3/uL (1.8-7.7); Neutrophils % 76.5 %; Nucleated Red Blood Cells % 0 %; Platelet Count 253 10^3/cmm (130-400); Red Blood Count 3.86 10^6/uL (4.1-5.3); Red Cell Distribution Width 13.4 % (12.1-15.1); White Blood Count 12.8 10^3/uL (4.0-10.0)
--- NOTE | 2020-09-12 09:32 | ECG_ITS ---
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 Measurements Intervals [place] Rate: 83 P: 29 [place]: 201 QRS: 5 QRSD: 110 T: -18 QT: 371 QTc: 438 Interpretive Statements SINUS RHYTHM INFERIOR MYOCARDIAL INFARCTION [40+ ms Q WAVE AND/OR ST/T ABNORMALITY IN II/aVF], OF INDETERMINATE AGE Compared to ECG 09/10/2020 05:23:52 First degree AV block no longer present Myocardial infarct finding still present Electronically Signed On 09-12-2020 19:30:41 CDT by Tim Butcher M.D. [email or web address]
[2020-09-12 09:36] LABS: Glucose Point of Care 130 mg/dL (70-110)
--- NOTE | 2020-09-12 09:41 | PC.NURSE ---
Report called to SHADI Obrien on [facility]. Pt to be transferred to room 254-1.
[2020-09-12 11:59] LABS: Alanine Aminotransferase 25 U/L (0-41); Albumin Level 3.3 g/dL (3.5-5.2); Alkaline Phosphatase 90 IU/L (40-130); Aspartate Amino Transferase 50 U/L (0-40); Blood Urea Nitrogen 9 mg/dL (8-23); Calcium 8.7 mg/dL (8.5-10.5); Carbon Dioxide 19 mmol/L (22-29); Chloride 98 mmol/L (98-107); Globulin 2.2 g/dL (1.3-4.6); Glomerular Filtration Rate 96.4 mL/min (90-130); Glucose 102 mg/dL (65-115); Osmolality Calculated 263 mOsm/kg (285-295); Sodium 127 mmol/L (136-145); Total Bilirubin 0.8 mg/dL (0.15-1.2); Total Protein 5.5 g/dL (6.6-8.7)
[2020-09-12 12:05] LABS: Anion Gap 14.7 (5-19); Potassium 4.7 mmol/L (3.5-5.1)
--- NOTE | 2020-09-12 12:06 | PC.NURSE ---
Pt transferred via wheelchair to [facility] room 254-1. Pt transferred with one assist from wheelchair to chair and tolerated well. Charge Nurse Camille notified of pt transfer.
[2020-09-12 12:08] LABS: Troponin(5th) Baseline 237 ng/L (0-15)
--- NOTE | 2020-09-12 13:09 | P.PN_ITS ---
Subjective Subjective: Interval history: I am seeing him in follow up for his hyponatremia. Pt feeling fine No nausea,vomiting or diarrhea Medications: Reviewed: Yes Vitals/I&O/Wt Last Vital Signs Temp 98.6 F 09/12/20 12:00 Pulse 86 09/12/20 12:00 Resp 25 H 09/12/20 12:00 BP 122/64 09/12/20 12:00 Pulse Ox 98 09/12/20 12:00 09/11/20 09/12/20 09/12/20 22:59 06:59 14:59 Intake Total 1567.5 / 2747.5 250 / 2997.5 360 / 360 Output Total 1450 / 3450 1250 / 4700 500 / 500 Balance 117.5 / -702.5 -1000 / -1702.5 -140 / -140 Weight last 48 hrs Weight 80.467 kg Weight 91.989 kg Physical Exam Const: COMMON NORMALS: no acute distress, patient oriented x3 and alert GENERAL APPEARANCE: cooperative ORIENTATION/CONSCIOUSNESS: Yes awake Resp: COMMON NORMALS: clear to auscultation bilaterally AUSCULTATION: clear to auscultation bilaterally Cardio: COMMON NORMALS: S1 normal heart sound present and S2 normal heart sound present HEART SOUNDS: S1 normal heart sound present and S2 normal heart sound present GI: AUSCULTATION: Yes normoactive bowel sounds Extremity: GENERAL: No edema Neuro: COMMON NORMALS: patient oriented x3 SENSORIUM/ORIENTATION: Yes alert Skin: COMMON NORMALS: no rashes or lesions noted GENERAL SKIN EXAM: no rashes or lesions noted Urinary Catheter Management^: Haskins: Cath Placed During This Visit: yes Reason for Continuing Indwelling Catheter: Acute Urinary Retention or Obstruction Urinary Catheter Date of Insertion: 09/09/20 Urinary Catheter Time of Insertion: 14:20 Data : 09/12/20 07:43 09/12/20 11:10 Micro: Microbiology 09/10/20 10:40 Enteric Pathogens (PCR) - Final Stool - Stool Aspirate Parasite Antigen Panel - Final C.difficile Toxin B Gene (PCR) - Final A&P Assessment and plan (1) Hyponatremia: sodium level fluctuating, as long as it stays above 125 we should be ok as he is asymptomatic Status: Acute (2) Acidosis, metabolic: Will monitor Status: Acute (3) Anemia: hb within goal Status: Acute Attestations Medical Necessity Statement*: hyponatremia Coding Level of Care Code Acute Colon And Rectal Surgeon for g Fwd Diagnoses Hyponatremia E87.1 Acidosis, metabolic E87.2 Anemia D64.9
--- NOTE | 2020-09-12 14:20 | PC.SOCIAL ---
IMM IMM updated with patient. Pg. 2 copy provided. Verbalized an understand, no questions voiced. Initialled, dated, timed and placed in chart.
[2020-09-12 14:33] LABS: Troponin 5 2HR 291.6 ng/L (0-15); Troponin 5 2HR Delta 54.6 ABS# (0-10)
--- NOTE | 2020-09-12 15:32 | ECG_ITS ---
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 Measurements Intervals [place] Rate: 91 P: 42 PA: 197 QRS: 5 QRSD: 116 T: -28 QT: 356 QTc: 440 Interpretive Statements SINUS RHYTHM INFERIOR MYOCARDIAL INFARCTION [40+ ms Q WAVE AND/OR ST/T ABNORMALITY IN II/aVF], OF INDETERMINATE AGE Compared to ECG 09/12/2020 10:18:37 No significant changes Electronically Signed On 09-15-2020 16:52:24 CDT by Melissa Valderrama M.D. [id number]
--- NOTE | 2020-09-12 17:58 | P.PN_ITS ---
Subjective Subjective: Interval history: Pleasant male who was seen in the ICU, he was not endorsing any new events, has had liquid bowel movement today. No chest pain, shortness of breath, tested C. difficile +09/10, echo came back with reduced action fraction which is a new finding as compared to previous echo, I have requested another serial troponin with EKG to trend, patient is not endorsing any active chest Vitals/I&O/Wt Last Vital Signs Temp 97.9 F 09/12/20 16:00 Pulse 96 09/12/20 16:00 Resp 16 09/12/20 16:00 BP 139/83 09/12/20 16:00 Pulse Ox 94 09/12/20 16:00 09/12/20 09/12/20 09/12/20 06:59 14:59 22:59 Intake Total 250 / 2997.5 360 / 360 Output Total 1250 / 4700 500 / 500 Balance -1000 / -1702.5 -140 / -140 Weight last 48 hrs Weight 80.467 kg Weight 91.989 kg Physical Exam Narrative: EXAM NARRATIVE: Patient was laying supine when entered the room, S1, S2 aortic systolic murmur Abdomen soft nontender bowel sound present Lower extremity no edema gangrene or ulcer Appropriate mood and affect EOMI, PERRLA GCS 15 awake alert oriented x3 Bilateral breath sounds with out any adventitious rhonchi or crackles No signs of anxiety or depression Urinary Catheter Management^: Haskins: Cath Placed During This Visit: yes, but has since been removed by the nurse Reason for Continuing Indwelling Catheter: Decision to DC Catheter Urinary Catheter Date of Insertion: 09/09/20 Urinary Catheter Time of Insertion: 14:20 Date Urinary Catheter Removed: 09/12/20 Time Urinary Catheter Discontinued: 17:00 Data : 09/12/20 07:43 09/12/20 11:10 A&P Assessment and plan (1) Acute hyponatremia: Status: Acute (2) Acute urinary retention: Status: Acute (3) Troponin level elevated: Status: Acute (4) Lower obstructive uropathy: Status: Acute (5) Acute renal failure: Status: Acute (6) Anemia: Status: Acute Additional A&P Information Acute hyponatremia without any neurological symptoms He should be monitored for next 2 to 4 weeks for any neurological signs or symptoms Nephro recommendations appreciated Am Sodium 134, second sodium level 127, fluctuating sodium level Acute urine retention requiring Haskins catheter placement, voiding trial today Urine has orange-caban color however no active jennifer hematuria noted Elevated troponin without any signs of chest pain Recent NSTEMI 08/28 currently on aspirin, Plavix ACS regimen Reduced EF as compared to previous study Unfortunately due to C. difficile positive status he cannot go for angiogram, I have updated Dr. Lovelace as well who has recommended follow-up with Dr. Durham and elective angiogram because of above-mentioned reason, EKG is not showing acute ischemic or infarct change other than inf wall T change Spondylolisthesis L4-L5 status post intervention 2 weeks (L4-L5 fusion with laminectomy on 08/28) Dr. Humphreys recommended changing dressing today and not remove stitches at this point, plan for removal in a week C. difficile colitis: Oral vancomycin started on 09/10 Hematuria Monitor closely hemoglobin stable without change in hemodynamics currently on aspirin Plavix DVT prophylaxis Heparin GI prophylaxis Protonix Transfer to floor today from ICU Attestations Medical Necessity Statement*: Continue medical management to trend troponin today noticed reduced EF which is a new finding Time Spent in Patient Care: 30mins Coding Level of Care Code Acute Head Of [employer] Technology for g Fwd Diagnoses Acute hyponatremia E87.1 Acute urinary retention R33.8 Troponin level elevated R77.8 Lower obstructive uropathy N13.9 Acute renal failure N17.9 Anemia D64.9
--- NOTE | 2020-09-12 18:10 | USCV_ITS ---
Deven Brennan Age: 65 Gender: M : 1955 Exam Date: 09/12/2020 07:00 Ordering Phys: Krysten Dickson MD Technologist: Lisa Mays Exam Location: [facility] – [place] Indication: Assess cardiac function, elevated troponin BP: 110 / 76 HR: Rhythm: Sinus Technical Quality: Fair MEASUREMENTS (Male / Female) Normal Values 2D ECHO LV Diastolic Diameter PLAX 4.6 cm 4.2 - 5.9 / 3.9 - 5.3 cm LV Systolic Diameter PLAX 3.9 cm IVS Diastolic Thickness 1.1 cm 0.6 - 1.0 / 0.6 - 0.9 cm IVS Systolic Thickness 1.5 cm LVPW Diastolic Thickness 0.9 cm 0.6 - 1.0 / 0.6 - 0.9 cm LVPW Systolic Thickness 1.2 cm LV Ejection Fraction 2D Teich 32.7 % LV Ejection Fraction MOD 2C 41.0 % LV Ejection Fraction 2C AL 41.3 % M-MODE LV Diastolic Diameter MM 5.3 cm 4.2 - 5.9 / 3.9 - 5.3 cm LV Systolic Diameter MM 4.3 cm LV Ejection Fraction MM Teich 38.1 % IVS Diastolic Thickness MM 1.2 cm 0.6 - 1.0 / 0.6 - 0.9 cm IVS Systolic Thickness MM 1.5 cm LVPW Diastolic Thickness MM 1.3 cm 0.6 - 1.0 / 0.6 - 0.9 cm LVPW Systolic Thickness MM 1.0 cm FINDINGS Left Ventricle Moderate hypokinesia of the basal and mid inferior wall segments. Slightly dyskinetic basal septal segment. Overall ejection fraction around 45% Right Ventricle Normal right ventricular size and systolic function. Right Atrium The right atrium is normal in size. Left Atrium Mildly increased left atrial size. Mitral Valve No gross abnormalities Aortic Valve Thickened aortic valve. Tricuspid Valve No gross abnormalities Pulmonic Valve No gross abnormalities Pericardium No pericardial effusion. Aorta Normal aortic annulus size. CONCLUSIONS Moderate hypokinesia of the basal and mid inferior wall segments. Slightly dyskinetic basal septal segment. Overall ejection fraction around 45%. Mildly increased left atrial size. Thickened aortic valve. There is no pericardial effusion. There are no intracardiac masses. Compared to the study from 08/29/2020, the inferior wall appears to be more hypokinetic Dr Tim Butcher MD [facility] (Electronically Signed) Final Date: 12 September 2020 09:12 S
[2020-09-12 18:24] LABS: Troponin 5 6HR 339.7 ng/L (0-15); Troponin 5 6HR Delta 102.7 ng/L (0-12)
--- NOTE | 2020-09-12 18:26 | PC.NURSE ---
This nurse called pharmacy two times for PO vanc. Has not been sent at this time.
[2020-09-12] MEDS: heparin 5,000 unit/mL INJ 1 mL 5000 UNIT SUBCUT (18:31)
[2020-09-12] MEDS: sennosides 8.6 mg Tablet 17.2 MG PO (20:49)
[2020-09-12 21:46] LABS: Glucose Point of Care 116 mg/dL (70-110)
[2020-09-13] VITALS: BP 140/87; PULSE 104; RESP 18; TEMP 36.9; O2SAT 95
--- NOTE | 2020-09-13 02:10 | PC.NURSE ---
Patient had gonzalez removal prior to shift change and patient voided twice by midnight but only 100 mls each time, pt bladder noted to be distended but pt denied any complaints of pressure or having the urge to void. Nurse bladder scanned pt and bladder scan indicated >800 mls of urine retained. Nurse notified Dr. Jarrell who gave verbal orders to place a gonzalez catheter. Patient verbalized consent to procedure and nurse inserted 16 fr gonzalez catheter using aseptic technique without difficulty, 1600 mls of clear pale yellow urine returned. PT denied any pain or discomfort and tolerated procedure well.
[2020-09-13] MEDS: heparin 5,000 unit/mL INJ 1 mL 5000 UNIT SUBCUT ×2 (03:26→10:31)
[2020-09-13 04:00] VITALS: BP 151/80; PULSE 105; RESP 17; TEMP 37.6; O2SAT 95
[2020-09-13 05:32] LABS: Basophils # 0.1 10^3/uL (0.0-0.1); Basophils % 0.3 %; Eosinophils % 0.2 %; Hematocrit 32.6 % (42.0-52.0); Hemoglobin 11.4 g/dL (11.7-16.6); Lymphocytes # 1.7 10^3/uL (0.8-4.8); Mean Corpuscular Hemoglobin 32.3 pg (28.0-34.0); Mean Corpuscular Volume 92.4 fL (80-94); Monocytes % 10.4 %; Neutrophils % 79.3 %; Nucleated Red Blood Cells % 0 %; Platelet Count 341 10^3/cmm (130-400); Red Blood Count 3.53 10^6/uL (4.1-5.3); Red Cell Distribution Width 13.1 % (12.1-15.1); White Blood Count 19.2 10^3/uL (4.0-10.0)
[2020-09-13 05:53] LABS: Anion Gap 14.2 (5-19); Blood Urea Nitrogen 10 mg/dL (8-23); Calcium 9.1 mg/dL (8.5-10.5); Carbon Dioxide 22 mmol/L (22-29); Chloride 95 mmol/L (98-107); Glomerular Filtration Rate 96.4 mL/min (90-130); Glucose 120 mg/dL (65-115); Osmolality Calculated 264 mOsm/kg (285-295); Potassium 4.2 mmol/L (3.5-5.1); Sodium 127 mmol/L (136-145)
[2020-09-13 06:00] VITALS: PULSE 112
[2020-09-13] MEDS: acetaminophen 325 mg Tablet 650 MG PO (07:44)
[2020-09-13 07:48] VITALS: BP 147/79; PULSE 105; RESP 16; TEMP 37.1; O2SAT 95
[2020-09-13] MEDS: pantoprazole DR 40 mg Tablet PO (08:02)
[2020-09-13] MEDS: atorvastatin 40 mg Tablet PO (08:02)
[2020-09-13] MEDS: clopidogrel 75 mg Tablet PO (08:02)
[2020-09-13] MEDS: isosorbide mononitrate ER 30 mg Tablet PO (08:02)
[2020-09-13] MEDS: aspirin 81 mg EC Tablet PO (08:02)
[2020-09-13] MEDS: metoprolol succinate ER (24 HR) 25 mg Tablet 12.5 MG PO (08:02)
[2020-09-13] MEDS: docusate sodium 100 mg Capsule PO (08:02)
[2020-09-13 12:00] VITALS: BP 139/77; PULSE 106; RESP 16; TEMP 37.1; O2SAT 97
--- NOTE | 2020-09-13 12:10 | P.DS_ITS ---
Discharge Providers Date of Admission: 09/09/20 17:51 Date of Discharge: September 13, 2020 Attending Provider at Admission: Krysten Dickson MD Attending Provider at Discharge: Akash Cabrera MD Primary Care Provider: Richard Forde DO Diagnoses at Discharge Discharge Diagnosis (1) Hyponatremia: Status: Acute Reason for Visit Reason for Visit: back issues post back surgery Hospital Course Hospital Course HPI Deven Brennan is a 65yo man w/ CAD, SD s/p 7 stents, HTN, HLD, chronic back pain due to L4/L5 Spondylolisthesis s/p L4/L5 fusion w/ laminectomy on 08/28/2020 who presented to the ED on 09/09/2020 w/ complaints of constipation, nausea, vomiting, abdominal pain. Patient's hospitalization from 08/28 - 08/30/2020 for his L4/L5 fusion w/ laminectomy on 08/28/2020 was complicated by an NSTEMI requiring ACS protocol and for which he was seen by Cardiology w/ the plans for a LHC in 2 weeks post d/c in once healed from surgery. He was d/c'ed on aspirin statin, plavix, imdur, metoprolol. The patient states that he had small amounts of watery stools up to twice per day, and intermittent urinary dribbling combined with periods of lack of urination. He endorses abdominal pain, poor appetite, fatigue, malaise, intermittent shortness of breath, episodes of confusion, dysuria, increased urinary urgency/frequency, as well as bleeding at the incision site the day prior to presentation states that he could not go for his regular walks. He denies any episodes of chest pain since discharge, but did endorse palpitations. He endorses chronic lightheadedness with changes in position for approximately 2 years. He denies visual changes, LOC, fever, or chills. Complains that he is gums blee since he has been on Plavix, and that it happened to him in 2007, when he had to take Plavix for a period if time. In the ED, he vomited bilious liquid. His vital signs were within normal limits with the exception of episodes of tachypnea. He had a leukocytosis of 15, a Na of 103 (Na of 136 on 08/30/2020), and an JERMAN w/ Cr of 13.8 (Baseline Cr of 0.9 on 08/30/2020). His UA was negative for a UTI and his lipase levels were 106. His initial CXR/abdominal XR showed probable atelectasis in the lung, concern for distended urinary bladder and generalized ileus. A CT abd/pelvis done that showed a markedly distended urinary bladder extended into the mid and lower abdomen, with bowel loops displaced preferably around the bladder, air-fluid level within the stomach, but no evidence of high-grade small bowel obstruction, or hydronephrosis in the kidneys. It did also show an enlarged prostate measuring 4.2 cm, and a tiny right pleural effusion with atelectasis in the lung bases. A gonzalez catheter was placed that drained 3L of urine. Repeat Na was 113 after drainage of urine and without administration of IVF. Cardiology and orthopedic surgery were consulted in the ED. Per ED, the strip machine operator saw the patient, and deemed that the elevated troponin T was likely due to the acute renal failure. Orthopedic surgeon indicated his willingness to consult on the patient as needed. Hospital course: Patient sodium corrected rather quickly however no neurological symptoms were noticed during hospitalization and he was instructed to monitor symptoms for next 2 to 3 weeks. Nephro was consulted who deemed sodium level above 125 to be acceptable. Etiology seemed postobstructive diuresis, normal TSH, euvolemic. Patient is adamant that he wants to go home today, he did well with physical therapy as well. will give him BMP script to be faxed to his PCP in [address] Humphreys would remove dressing and stitches probably in a week. Dr. Priest recommended elective angiogram because of the fact he developed C. difficile diarrhea during his hospitalization and absence of symptoms. He recommended follow-up with Dr. Huerta next week. I have continued aspirin, Plavix, atorvastatin and metoprolol succinate. Repeat echocardiogram showed EF 45% which seem reduced as compared to previous echocardiogram, cardiology was notified who recommended continuing above-mentioned regimen. For C. difficile diarrhea he will require 6 more days of p.o. vancomycin dosage. For his back pain he will get oxycodone with bowel regimen. Of note, he failed his voiding trial however does not have typical signs of spinal cord compression, recommended follow up with Dr. Nicole. He will be discharged with 16 [place] Gonzalez catheter. Physical Exam Narrative: EXAM NARRATIVE: Pleasant cooperative male no active neurological symptoms or signs He did well with physical therapist as well S1, S2 No active signs of congestive heart failure No abdominal pain EOMI, PERRLA No acute respiratory distress Urinary Catheter Management^: Gonzalez: Cath Placed During This Visit: yes, but has since been removed by the nurse Reason for Continuing Indwelling Catheter: Acute Urinary Retention or Obstruction Urinary Catheter Date of Insertion: 09/13/20 Urinary Catheter Time of Insertion: 02:09 Date Urinary Catheter Removed: 09/12/20 Time Urinary Catheter Discontinued: 17:00 Discharge Data Data Completed and Pending: Completed Studies During Hospitalization Category Date Time Status CT abdomen pelvis wo con [id number] Stat Cat Scan 09/09/20 12:59 Completed XR acute abdomen series [id number] Stat Exams 09/09/20 12:15 Completed CV. echo limited [id number] Routine Ultrasound 09/12/20 18:10 Completed Pending at discharge Category Date Time Status Blood Culture Sta t Lab 09/09/20 00:47 Results Labs from last 24 hours 09/13/20 09/13/20 09/12/20 05:17 05:17 20:37 WBC 19.2 H RBC 3.53 L Hgb 11.4 L Hct 32.6 L MCV 92.4 MCH 32.3 MCHC 35.0 RDW 13.1 Plt Count 341 MPV 9.0 Neut % (Auto) 79.3 Lymph % (Auto) 9.0 Bond % (Auto) 10.4 Eos % (Auto) 0.2 Baso % (Auto) 0.3 Neut # (Auto) 15.20 H Lymph # (Auto) 1.7 Bond # (Auto) 2.0 H Eos # (Auto) 0.0 Baso # (Auto) 0.1 Nucleated RBC % (a uto) 0 Nucleated RBCs # 0.0 Sodium 127 L Potassium 4.2 Chloride 95 L Carbon Dioxide 22 Anion Gap 14.2 BUN 10 Creatinine 0.8 GFR Calculation 96.4 Glucose 120 H POC Glucose 116 H Calculated Osmolal ity 264 L Calcium 9.1 Troponin T 120 Min mikal Delta Troponin T Troponin T Hi Sens 6Hr Troponin T Hi Sens 6Hr Delta 09/12/20 09/12/20 17:40 13:04 WBC RBC Hgb Hct MCV MCH MCHC RDW Plt Count MPV Neut % (Auto) Lymph % (Auto) Bond % (Auto) Eos % (Auto) Baso % (Auto) Neut # (Auto) Lymph # (Auto) Bond # (Auto) Eos # (Auto) Baso # (Auto) Nucleated RBC % (a uto) Nucleated RBCs # Sodium Potassium Chloride Carbon Dioxide Anion Gap BUN Creatinine GFR Calculation Glucose POC Glucose Calculated Osmolal ity Calcium Troponin T 120 Min mikal 291.6 H Delta Troponin T 54.6 H* Troponin T Hi Sens 6Hr 339.7 H Troponin T Hi Sens 6Hr Delta 102.7 H* Vitals: Last Vital Signs Temp 98.7 F 09/13/20 12:00 Pulse 106 H 09/13/20 12:00 Resp 16 09/13/20 12:00 BP 139/77 09/13/20 12:00 Pulse Ox 97 09/13/20 12:00 Discharge Plan Discharge Patient Disposition: Home Condition: Stable Prescriptions: New atorvastatin 40 mg Tablet 40 mg PO DAILY 30 Days Qty: 30 RF: 2 isosorbide mononitrate 30 mg Tablet Extended Release 24 Hr 30 mg PO DAILY 30 Days Qty: 30 RF: 2 clopidogrel 75 mg Tablet 75 mg PO DAILY 30 Days Qty: 30 RF: 2 aspirin 81 mg Tablet,Delayed Release (Dr/Ec) 81 mg PO DAILY 30 Days Qty: 30 RF: 2 vancomycin 1,000 mg Recon Soln 125 mg PO QID 6 Days Qty: 24 RF: 0 metoprolol succinate 25 mg Tablet Extended Release 24 Hr 12.5 mg PO DAILY 30 Days Qty: 30 RF: 2 Prilosec Otc 20 mg PO DAILY 30 Days Qty: 30 RF: 0 oxycodone 10 mg tablet 10 mg PO BID PRN (Reason: pain) 7 Days Qty: 14 RF: 0 Senna Plus 8.6-50 mg capsule 1 tab-cap PO BID 10 Days Qty: 20 RF: 0 tamsulosin 0.4 mg capsule 0.4 mg PO DAILY 30 Days Qty: 30 RF: 2 Continued atorvastatin [Lipitor] 80 mg tablet 40 mg PO DAILY RF: 0 lisinopril 40 mg tablet 40 mg PO DAILY RF: 0 omega-3 fatty acids [Fish Oil Concentrate] 1,000 mg capsule 1,000 mg PO DAILY RF: 0 multivitamin Tablet 1 tab PO DAILY RF: 0 gabapentin 100 mg Capsule 100 mg PO PRN PRN (Reason: Pain) RF: 0 Prilosec OTC 20 mg PO DAILY RF: 0 isosorbide mononitrate 30 mg Tablet Extended Release 24 Hr 30 mg PO DAILY 30 Days Qty: 30 RF: 0 clopidogrel 75 mg Tablet 75 mg PO DAILY 30 Days Qty: 30 RF: 0 aspirin 81 mg Tablet,Delayed Release (Dr/Ec) 81 mg PO DAILY 30 Days Qty: 30 RF: 0 nitroglycerin 0.4 mg Tablet, Sublingual 0.4 mg sublingual Q5M PRN (Reason: Chest Pain) 30 Days Qty: 30 RF: 0 metoprolol succinate 25 mg Tablet Extended Release 24 Hr 12.5 mg PO DAILY 30 Days Qty: 30 RF: 0 potassium chloride 10 mEq Tablet Extended Release 10 meq PO DAILY RF: 0 Discharge Orders: Discharge Order (Routine); Ordered 09/13/20 Ordered By: Akash Cabrera Other Ambulatory Orders: Basic Metabolic Panel (Routine) Timeframe: 2 Days Facility: [facility] - Location: Lab - Main Lab Ordered By: Akash Cabrera Referrals: Luis Humphreys DO [Physician] - 2 weeks Jose M Nicole MD [Physician] - 4-7 days (Urinary retention) Akash Huerta MD [Physician] - 1 week (NSTEMI) Richard Forde DO [Primary Care Provider] - Discharge Diet: Cardiac Discharge Activity: Increase activity as tolerated, Use walker/crutches as instructed and As per PT/OT instructions Patient Instructions: Abdominal Pain (ED), Opioid Safety Activity Restrictions/Additional Instructions: Please follow-up with strip machine operator for elective angiogram Dr. Nicloe follow-up for urinary retention I am giving you BMP prescription for sodium level follow-up Discharge Attestations Time Spent in Discharge Care*: less than 30 min Quality Metrics Clinical Quality Measures During this hospital stay, did patient experience: None Coding Level of Care Code Acute Chg FW DC note Diagnoses Hyponatremia E87.1
[2020-09-13 14:21] VITALS: BP 139/77; PULSE 106; RESP 16; TEMP 37.1; O2SAT 97
--- NOTE | 2020-09-21 16:55 | PC.SOCIAL ---
Dr Cabrera last week gave verbal for Potassium 10meq once daily for three days then follow up with PCP with recheck BMP. Called Dorothy and explained this was already given last week since they left another message. Evidently the order was not processed. Again gave the same order verbally and was read back by Veto. Strongly encouraged them to have patient see PCP this week for further evaluation to see if this is needed.
== END 2020-09-13 14:20 | disposition home or self-care (01) | DRG 682 ==
LOC: ER 15:56 → ICU 21:48 → MEDSURG 21:52 → ER IP 21:53 → ICU 21:55 → MEDSURG 09-12 12:04 → ICU 09-12 12:05 → MEDSURG 09-12 12:06
PROVIDERS: Internal Medicine; Physician Assistant; Admitting Provider Internal Medicine; Emergency Provider Emergency Medicine; PCP Emergency Medicine Emergency Medical Services; Visit Provider Internal Medicine
DX: N17.9 Acute kidney failure, unspecified (principal); I22.2 Subsequent non-ST elevation (NSTEMI) myocardial infarction; I21.4 Non-ST elevation (NSTEMI) myocardial infarction; N13.8 Other obstructive and reflux uropathy; I50.32 Chronic diastolic (congestive) heart failure; E87.1 Hypo-osmolality and hyponatremia; A04.72 Enterocolitis due to Clostridium difficile, not specified as recurrent; I24.8 Other forms of acute ischemic heart disease; E87.2 Acidosis; I25.10 Atherosclerotic heart disease of native coronary artery without angina pectoris; Z95.5 Presence of coronary angioplasty implant and graft; E78.5 Hyperlipidemia, unspecified; G89.29 Other chronic pain; M43.16 Spondylolisthesis, lumbar region; Z98.1 Arthrodesis status; N40.1 Benign prostatic hyperplasia with lower urinary tract symptoms; R33.8 Other retention of urine; I11.0 Hypertensive heart disease with heart failure; I25.2 Old myocardial infarction; E87.6 Hypokalemia; Z79.82 Long term (current) use of aspirin; Z79.02 Long term (current) use of antithrombotics/antiplatelets; D64.9 Anemia, unspecified
CPT/HCPCS: 36415; 36416; 51702; 74022; 74176; 80048; 80053; 81001; 82962; 83036; 83690; 83735; 84100; 84484; 85025; 85610; 85730; 87040; 87493; 87506; 87635; 93005; 93308; 96361; 96372; 96374; 97161; 97530; 99285; J1644; J2270; J2405; J3370; J3480; J7040; Q3014

== ENCOUNTER → 2020-10-22 08:18 | Outpatient (BNVA) | payer OTHER, SELFPAY | PROVIDERS: PCP Emergency Medicine Emergency Medical Services; Visit Provider Orthopaedic Surgery | DX: M43.16 Spondylolisthesis, lumbar region (principal); Z48.89 Encounter for other specified surgical aftercare | CPT/HCPCS: 72100 ==

== ENCOUNTER → 2020-10-27 10:14 | Outpatient (BNVA) | payer OTHER, SELFPAY | PROVIDERS: PCP Emergency Medicine Emergency Medical Services; Visit Provider Urology | DX: R33.8 Other retention of urine (principal) | CPT/HCPCS: 81003 ==

== ENCOUNTER → 2021-01-14 10:45 | Outpatient (BNVA) | payer OTHER, SELFPAY | PROVIDERS: PCP Emergency Medicine Emergency Medical Services; Visit Provider Urology | DX: R33.8 Other retention of urine (principal) | CPT/HCPCS: 81003 ==

== ENCOUNTER → 2021-07-05 15:10 | Outpatient (BNVA) | payer OTHER, SELFPAY | PROVIDERS: PCP Emergency Medicine Emergency Medical Services; Visit Provider Internal Medicine | DX: I11.0 Hypertensive heart disease with heart failure (principal); I50.22 Chronic systolic (congestive) heart failure; Z87.891 Personal history of nicotine dependence | CPT/HCPCS: 99214 ==

== ENCOUNTER 2021-07-08 14:13 | Outpatient (CLI) | payer OTHER, SELFPAY ==
[2021-07-08 14:37] LABS: Basophils % 0.4 %; Eosinophils # 0.1 10^3/uL (0.0-0.8); Eosinophils % 1.7 %; Hematocrit 41.8 % (42.0-52.0); Hemoglobin 14.5 g/dL (11.7-16.6); Lymphocytes # 2.2 10^3/uL (0.8-4.8); Lymphocytes % 29.3 %; Mean Corpuscular HGB Conc 34.7 g/dL (30.0-36.0); Mean Corpuscular Hemoglobin 33.3 pg (28.0-34.0); Mean Corpuscular Volume 96.1 fl (80-94); Mean Platelet Volume 10.6 fL (7.4-10.4); Monocytes # 0.7 10^3/uL (0.2-0.9); Monocytes % 9.7 %; Neutrophils # 4.49 10^3/uL (1.8-7.7); Neutrophils % 58.6 %; Nucleated Red Blood Cells % 0 %; Platelet Count 191 10^3/cmm (130-400); Red Blood Count 4.35 10^6/uL (4.1-5.3); Red Cell Distribution Width 13.2 % (12.1-15.1); White Blood Count 7.7 10^3/uL (4.0-10.0)
[2021-07-08 15:02] LABS: INR 0.97 (0.83-1.21); Prothrombin Time (Patient) 13.2 Seconds (12.0-15.1)
[2021-07-08 15:04] LABS: Blood Urea Nitrogen 19 mg/dL (8-23); Calcium 9.2 mg/dL (8.5-10.5); Carbon Dioxide 22 mmol/L (22-29); Chloride 105 mmol/L (98-107); Glomerular Filtration Rate 96.1 mL/min (90-130); Glucose 82 mg/dL (65-115); Osmolality Calculated 287 mOsm/kg (285-295); Sodium 138 mmol/L (136-145)
== END 2021-07-08 14:14 | disposition home or self-care (01) ==
LOC: LAB 14:15
PROVIDERS: PCP Emergency Medicine Emergency Medical Services; Visit Provider Internal Medicine
DX: I10 Essential (primary) hypertension (principal); R58 Hemorrhage, not elsewhere classified
CPT/HCPCS: 36415; 80048; 85025; 85610

== ENCOUNTER 2021-07-15 09:00 | Outpatient (CLI) | payer OTHER, SELFPAY ==
[2021-07-15] VITALS (33 sets, daily range): BP systolic 95–161; BP diastolic 52–101; PULSE 49–88; RESP 0–30; TEMP 36.5–36.8; O2SAT 91–98; BMI 35.3
--- NOTE | 2021-07-15 09:00 | XACV_ITS ---
Ht: 168 cm Wt: 99 kg BSA: 2.19 m2 Gender: Male : 1955 Any Known Allergies: Other Exam Priority: Routine Indication(s): - Non-ST elevation [place] Procedure(s): Procedure Description: Diagnostic procedure Procedure Description: Left Heart Catheterization Procedure Description: Left ventriculography Procedure Description: Coronary Angiography Diagnostic Cath Status: Elective Diagnostic Findings * Mid Right Coronary Artery: subtotal occlusion in-stent restenosis, CARIDAD: 2 flow. * Left Main has no disease. * Mid Left Anterior Descending: significant 80% stenosis, CARIDAD: 3 flow. * Mid Right Coronary Artery: subtotal occlusion, CARIDAD: 3 flow. * Proximal Circumflex: significant 80% stenosis, CARIDAD: 3 flow. * Coronary angiography shows right dominance. PCI Status: Elective PCI Indication: Other Interventional Findings * PROCEDURE DETAIL: We initially engaged RCA with JR4 guide catheter. However balloon could not be crossed. We switched catheter to AL 0.75 guide catheter. IV heparin was administered to maintain ACT above 250S. We used 3.5 x 12 mm noncompliant balloon to dilate prior stent in-stent restenosis. This improved flow significantly. At this time final angiogram was performed that showed excellent stent expansion, minimal residual stenosis and CARIDAD-3 flow. Guidewire and guide catheters were removed. Then we turned our attention to left circumflex artery. We used XB 3.0 guide catheter to engage left main artery. 0.014 run-through guidewire was used to cross into distal left circumflex artery. We predilated the left circumflex artery with 2.5 x 12 mm semicompliant balloon. We then placed a 3.5 x 15 mm resolute josué drug-eluting stent. We then turned our attention to mid LAD stenosis. Stenosis was predilated with both the semicompliant and NC balloon measuring 2.5 x 12 mm balloons. However it was calcified lesion and did not yield. At this time we aborted further attempts and will plan on staged PCI of LAD with arthrectomy. Final angiogram was performed. No complications were seen and patient left the Mechanical Engineer in a stable condition.. * Mid Left Anterior Descendin% stenosis treated with a AB TREK 2.50X12 RX BALLOON, and MDT ESTELLA EUPHORA RX [id number] BALLOON. 0% residual stenosis, CARIDAD: 3 flow. * Proximal Circumflex: 80% stenosis treated with a AB TREK 2.50X12 RX BALLOON, and MDT R JOSUÉ 3.5X15 KYAW. 0% residual stenosis, CARIDAD: 3 flow. Conclusions 1. Severe multivessel coronary artery disease s/p successful revascularization of LCx with KYAW 1 and balloon angioplasty of mid RCA instent restenosis. 2. Staged PCI of the mid LAD s/p PCI with arthrectomy in 2 weeks. 3. Mid Left Anterior Descending was treated with a Balloon, and Balloon. 4. Proximal Circumflex was treated with a Balloon, and Drug Eluting Stent. Recommendations * Aspirin and Plavix for atleast 1 year. * High intensity statin therapy. * Beta madi and OTONIEL inhibitor. * Outpatient cardiology follow up in 4 weeks. Interventional RX Recommendation: PCI w/o planned CABG Diagnostic RX Recommendation: PCI w/o planned CABG Anticoagulation: Heparin Pressures Phase:Rest AO : 102 / 38 ( 64 ) @ 11:14:00 AM 143 / 70 ( 105 ) @ 11:31:00 AM 194 / 77 ( 116 ) @ 11:38:00 AM 102 / 66 ( 79 ) @ 11:49:00 AM Clinical Evaluation EBL: 5mL-10mL Procedural Details Procedure Consent Obtained. Admit Source: Out Patient. Current Diagnosis : NSTEMI. Pre-Procedure Time Out. Identified patient by full name and date of as verbalized by the patient/guarantor. Does the consent match the physician's order: Yes. Accurate & Complete Informed Consent: Yes. Inpatient/Outpatient History & Physical on Chart: Yes. If H&P is completed, is and addenduem needed: No; If yes, is the addendum complete: N/A. Visualize and Verify Site with Patient/Guarantor: N/A. Relevant Radiology Images available: Yes. The risks, benefits, and alternatives of sedation and/or procedure were discussed by physician. The patient agrees to continue. Procedure started. [facility] Clinical Fraility Score: 3: Managing Well. Mechanical Engineer Indications: Worsening Angina. Chest Pain Symptom Assessment: Typical Angina Symptoms. Cardiovascular Instability: NO, STABLE. Correct patient, site and procedure confirmed by cath team. Current diagnosis: NSTEMI. PERRLA. Strong, equal hand configuration specialist bilaterally. Lungs clear x 5 lobes. IV Site on Arrival: 20 gauge in the left forearm. IV Fluids: 0.9% NaCl at KVO. 0 mL infused prior to airport maintenance laborer. Pre Procedural Pulses: bilateral posterior tibial was 3+. Pre Procedural Pulses: bilateral dorsalis pedis was 3+. Pre Procedural Pulses: bilateral radial was 3+. Oxygen started at 3liters/min via nasal canula. right radial was prepped with chloroprep then draped in the usual sterile fashion. right groin was prepped with chloroprep then draped in the usual sterile fashion. Baseline sample Acquired. HR: 56 BPM. Equipment: 5F - Femoral. Equipment: 5F - Radial. Equipment: 6F - Femoral. Equipment: 6F - Radial. Physician arrived. Physician scrubbed in. Immediate Pre-Procedure Time Out. Correct Patient: Yes; Correct Procedure: Yes; Correct Site: Yes; Correct Patient Position: Yes; Correct Supplies: Yes; Dried Flammable Prep: Yes; Blood Products Available: N/A;. Lidocaine 1% infiltrated to the right radial. Arterial access obtained. A 5 greenlandic TIG catheter in over wire. Multiple views taken of right coronary artery. Catheter redirected to the LCA. Multiple views taken of left coronary artery. Catheter removed over the standard wire. Starting Intervention. Inventory is TR 180cm Runthrough NS extra floppy 0.014 wire. Inventory is CRD 6FR JR 4 GUIDE 100cm. Inventory: Endoflator. 6 greenlandic JR 4 guide catheter was inserted over the wire. Guide seated in the RCA. Runthrough guidewire was advanced through the guide catheter to lesion in the mid RCA. Balloon inserted. Unable to cross. Removed. Guideliner inserted. INVENTORY: 6fr guideliner. NC Euphora 3.5 x 12 balloon in and unable to cross, balloon out. Guideliner out. Guide catheter out. 6 greenlandic AL 0.75 guide catheter was inserted over the wire. Guide seated. Runthrough guidewire was advanced through the guide catheter to lesion in the mid RCA. Guidewire advanced across lesion. Inflation number : 1 A MDT NC EUPHORA RX [id number] BALLOON was prepped and advanced across the Mid RCA , then inflated to 12 EITAN for 0:17 seconds. Inflation number: 2 The MDT NC EUPHORA RX 3.82I53UC BALLOON was reinflated across the Mid RCA, to 14 EITAN for 0:22 seconds. Balloon and wire out. Guide out over the wire. 6 greenlandic JR 4 guide catheter was inserted over the wire. Results checked. Guide catheter out over the wire. Inventory is CRD 6FR XB 3 GUIDE. Guide seated in the LCS. Runthrough guidewire was advanced through the guide catheter to lesion in the prox Circ. Inflation number : 1 A AB TREK 2.50X12 RX BALLOON was prepped and advanced across the Prox CX , then inflated to 12 EITAN for 0:19 seconds. Balloon out. Inflation Number : 2 A MDT R JOSUÉ 3.5X15 KYAW -Lot Number# [id number] was prepped and advanced across the Prox CX. The stent was deployed at 12 EITAN for 0:27 seconds. EXP 11-03-2023. Results checked. ACT drawn. Results 351 seconds. Therapeutic limits - pre-heparin administration 90-150 seconds and monitoring heparin during a vascular procedure >250 seconds. Wire redirected down the LAD. Inflation number: 1 The AB TREK 2.50X12 RX BALLOON was reinflated across the Mid LAD, to 14 EITAN for 0:17 seconds. Inflation number: 2 The MDT NC EUPHORA RX [id number] BALLOON was reinflated across the Mid LAD, to 14 EITAN for 0:10 seconds. Inflation number: 3 The MDT NC EUPHORA RX 3.35I30AE BALLOON was reinflated across the Mid LAD, to 14 EITAN for 0:05 seconds. Inflation number: 4 The MDT NC EUPHORA RX 3.71K39KT BALLOON was reinflated across the Mid LAD, to 17 EITAN for 0:07 seconds. 3.5 X15 DRUG ELUTING STENT REINSERTED. UNABLE TO CROSS LESION. REMOVED INTACT. RESULTS CHECKED. Wire Removed. Results checked. Guide catheter out over the wire. ACT drawn. Results 258 seconds. Therapeutic limits - pre-heparin administration 90-150 seconds and monitoring heparin during a vascular procedure >250 seconds. Physician review of films. Physician scrubbed out. A TR Band was successful obtaining hemostatsis at the Right Radial artery insertion site. TR band placed. Hemostasis obtained. Post Procedure: Pulses reassessed and unchanged. PERRLA. Strong, equal hand configuration specialist bilaterally. No VTE prophylaxis required. Medication's Wasted: Lidocaine 1% = 8 mL. Medication's Wasted: Nitro = 49.8 mg. Medication's Wasted: Heparin = 3000 units. Total IV fluids: 71 mL. Fluoro: 18:08. Contrast type used: Omnipaque 300 mgI/mL, 500 mL bottle. [id number]. Post-op diagnosis: Severe multivessel CAD. Complications: None. Estimated blood loss: 5mL-10mL. Responsiveness - Normal response to verbal stimuli; alert and oriented, PERRLA. Airway - Unaffected, no intervention required; spontaneous ventilation. Circulation: W/N/L, pulses unchanged. Nausea/Vomiting: No. Procedure completed. Patient transferred by bed to 1st floor. Vital chart was stopped. Procedure started. Access Site Site: Right Radial artery Sheath Size: 6 Fr Hemostasis Method: TR Band Hemostasis Success: Successful Procedure Medications Start: 10:03 AM Stop: 10:03 AM Medication: Versed Amount: 1 mg Route: I.V. Start: 10:04 AM Stop: 10:04 AM Medication: Fentanyl Amount: 50 mcg Route: I.V. Start: 10:05 AM Stop: 10:05 AM Medication: Nitrogylcerin Amount: 200 mcg Route: I.A. Start: 10:06 AM Stop: 10:06 AM Medication: Heparin Amount: 5000 units Route: I.V. Start: 10:10 AM Stop: 10:10 AM Medication: Heparin Amount: 5000 units Route: I.V. Start: 10:12 AM Stop: 10:12 AM Medication: Versed Amount: 1 mg Route: I.V. Start: 10:30 AM Stop: 10:30 AM Medication: Versed Amount: 1 mg Route: I.V. Start: 10:30 AM Stop: 10:30 AM Medication: Versed 1 mg and Fentanyl 25 mcg Amount: 1 Route: I.V. Start: 10:35 AM Stop: 10:35 AM Medication: Heparin Amount: 2000 units Route: I.V. Start: 10:35 AM Stop: 10:35 AM Medication: Fentanyl Amount: 25 mcg Route: I.V. Start: 10:53 AM Stop: 10:53 AM Medication: Versed Amount: 1 mg Route: I.V. Start: 11:00 AM Stop: 11:00 AM Medication: Plavix Amount: 300 mg Route: P.O. I, the attending physician, have reviewed and verified all procedure medications. Yes, all medications given per verbal order History/Risk Factors Hypertension: Yes Dyslipidemia: Yes Peripheral Arterial Disease (PAD): No Myocardial Infarction ([place]): Yes Obesity: No Renal Disease: No Tobacco Use: Former Prior Interventions PCI: Yes CABG: No Valve Surgery: No Date of PCI: 02/27/2006 Report Signatures Finalized by Samy Lovelace MD on 07/28/2021 05:53 PM
[2021-07-15] MEDS: diphenhydrAMINE 50 mg Capsule PO (09:47)
--- NOTE | 2021-07-15 09:52 | W.PM.OPSUD ---
Surgery/Procedure H&P Update DATE OF PROCEDURE: July 15, 2021 DATE H&P PERFORMED: 08/05/20 H&P UPDATE INFORMATION: I have reviewed H&P completed within last 30 days, I have examined patient prior to procedure and No changes to prior documentation PREOP DIAGNOSIS: Worsening chest pain / Recent NSTEMI PRIMARY INDICATION FOR PROCEDURE: Worsening chest pain / Recent NSTEMI PLANNED PROCEDURE: Operation Date: 07/15/21 10:00 Proposed Procedures p Cardiac Catheterization(Left) - Samy Lovelace M.D Possible percutaneous coronary intervention PATIENT REASSESSED PRIOR TO SEDATION, WITH NO CHANGE NOTED: Yes PHYSICAL EXAM: alert, oriented x 3, clear to auscultation bilaterally and regular rate & rhythm AIRWAY EVAL/ANESTHESIA PLAN: ASA III, Monitored Anesthesia, Local Anesthesia, Risks, benefits & alternatives of sedation and/or procedure discussed and Patient agrees to continue as planned
--- NOTE | 2021-07-15 12:00 | PC.NURSE ---
Patient reports increasing CP. Dr. Lovelace notified. Order received for ntg sL.
[2021-07-15] MEDS: nitroglycerin 0.4 mg sublingual Tablet SUBLINGUAL ×2 (12:02→12:07)
--- NOTE | 2021-07-15 12:04 | ECG_ITS ---
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 Measurements Intervals [place] Rate: 63 P: 8 MN: 204 QRS: 3 QRSD: 119 T: -8 QT: 447 QTc: 458 Interpretive Statements SINUS RHYTHM WITH OCCASIONAL VENTRICULAR PREMATURE COMPLEXES INFERIOR MYOCARDIAL INFARCTION , OF INDETERMINATE AGE [40+ ms Q WAVE AND/OR ST/T ABNORMALITY IN II/aVF] Compared to ECG 09/12/2020 17:31:54 Ventricular premature complex(es) now present Myocardial infarct finding still present Electronically Signed On 07-15-2021 17:15:33 CDT by Samy Lovelace M.D. [id number]
--- NOTE | 2021-07-15 12:08 | PC.NURSE ---
Patient states CPradiates to left shoulder and states pain has decreased from a 6/10 to a 3/10 after one ntg sL.
--- NOTE | 2021-07-15 12:13 | PC.NURSE ---
Patient reports 0/10 chest pain resolved.
[2021-07-15] MEDS: lisinopril 20 mg Tablet PO (18:08)
[2021-07-15] MEDS: gabapentin 300 mg Capsule PO (21:13)
[2021-07-16] VITALS (7 sets, daily range): BP systolic 120–149; BP diastolic 68–86; PULSE 64–77; RESP 2–20; O2SAT 89–96
[2021-07-16 05:11] LABS: Basophils % 0.2 %; Eosinophils # 0.1 10^3/uL (0.0-0.8); Hemoglobin 14.6 g/dL (11.7-16.6); Lymphocytes # 2.1 10^3/uL (0.8-4.8); Lymphocytes % 23.6 %; Mean Corpuscular HGB Conc 33.2 g/dL (30.0-36.0); Mean Corpuscular Hemoglobin 32.2 pg (28.0-34.0); Mean Corpuscular Volume 96.9 fl (80-94); Mean Platelet Volume 11.2 fL (7.4-10.4); Monocytes # 0.7 10^3/uL (0.2-0.9); Monocytes % 8.5 %; Neutrophils # 5.77 10^3/uL (1.8-7.7); Neutrophils % 66.4 %; Nucleated Red Blood Cells % 0 %; Platelet Count 170 10^3/cmm (130-400); Red Blood Count 4.54 10^6/uL (4.1-5.3); Red Cell Distribution Width 13.2 % (12.1-15.1); White Blood Count 8.7 10^3/uL (4.0-10.0)
[2021-07-16 05:41] LABS: Anion Gap 15.1 (5-19); Blood Urea Nitrogen 16 mg/dL (8-23); Calcium 9.3 mg/dL (8.5-10.5); Carbon Dioxide 21 mmol/L (22-29); Chloride 107 mmol/L (98-107); Glomerular Filtration Rate 96.1 mL/min (90-130); Glucose 104 mg/dL (65-115); Osmolality Calculated 289 mOsm/kg (285-295); Potassium 4.1 mmol/L (3.5-5.1); Sodium 139 mmol/L (136-145)
--- NOTE | 2021-07-16 08:23 | USCV_ITS ---
Deven Brennan Age: 66 Gender: M : 1955 Exam Date: 07/16/2021 08:37 Ordering Phys: Samy Lovelace M.D ([email or web address]) Technologist: Jany Mason Exam Location: [facility] [place] Indication: Coronary artery disease/Chest pain BP: 137 / 86 HR: 69 Rhythm: Sinus Technical Quality: Adequate MEASUREMENTS (Male / Female) Normal Values 2D ECHO LV Diastolic Diameter PLAX 5.1 cm 4.2 - 5.9 / 3.9 - 5.3 cm LV Systolic Diameter PLAX 4.0 cm IVS Diastolic Thickness 1.0 cm 0.6 - 1.0 / 0.6 - 0.9 cm IVS Systolic Thickness 1.6 cm LVPW Diastolic Thickness 1.1 cm 0.6 - 1.0 / 0.6 - 0.9 cm LVPW Systolic Thickness 1.7 cm RV Chamber Size 2.2 cm LVOT Diameter 2.0 cm LV Ejection Fraction 2D Teich 44.1 % LV Ejection Fraction MOD 2C 54.9 % LV Ejection Fraction 2C AL 56.7 % LA Diameter 2.5 cm LA Width 3.5 cm LA Height 4.0 cm RA Width 3.0 cm RA Height 3.9 cm Aorta at Sinotubular Diameter 2.7 cm M-MODE Aortic Annulus Diameter 3.7 cm LA Ao Ratio MM 0.7 MV E Point Septal Separation 0.5 cm DOPPLER AV Peak Velocity 115.0 cm/s LVOT Peak Velocity 104.0 cm/s AV Area Cont Eq vti 2.7 cm squared AV Area Cont Eq pk 2.8 cm squared MV Area PHT 3.9 cm squared Mitral E to A Ratio 0.7 MV E' Velocity 36.5 cm/s Mitral E to MV E' Ratio 11.7 Mitral E to LV E' Lateral Ratio 9.0 Mitral E to LV E' Septal Ratio 17.1 TR Peak Velocity 214.0 cm/s TR Peak Gradient 18.3 mmHg TV Peak E Velocity 40.0 cm/s PV Peak Velocity 92.0 cm/s RV Acceleration Time 0.1 s RV Ejection Time 0.4 s RV AcT/ET 0.3 FINDINGS Left Ventricle Left ventricle is normal in size. LV systolic function is mild to moderately reduced with EF of 40-45%. Mild global hypokinesis with moderate to severe hypokinesis of the mid to apical anterolateral wall and moderate hypokinesis of mid to apical anterior wall. Grade 1 diastolic dysfunction Right Ventricle The right ventricle is normal in size and function. Right Atrium The right atrium is normal in size. Left Atrium The left atrium is normal in size. Mitral Valve Thickened mitral valve. There is trace mitral regurgitation. Aortic Valve Structurally normal aortic valve without significant sclerosis or stenosis. There is no aortic regurgitation. Tricuspid Valve Grossly normal Pulmonic Valve Not well visualized Pericardium Normal pericardium without effusion. Aorta Normal ascending aorta dimension. IVC CONCLUSIONS Technically limited quality echocardiogram because of poor ultrasonic windows. LV systolic function is mild to moderately reduced with EF of 40 to 45%. Above-mentioned regional wall motion abnormalities. Grade 1 diastolic dysfunction. Trace mitral regurgitation. Compared to prior echocardiogram from 09/12/2020, no significant changes are noted Samy Lovelace MD (Electronically Signed) Final Date: 17 Jul 2021 10:53 S
--- NOTE | 2021-07-16 08:24 | P.SS_ITS ---
Short Stay Summary Providers Date of Admit/Discharge: 07/15/21 Attending Provider: Samy Lovelace M.D Primary Care Provider: Richard Forde DO Chief Complaint: 85669 i20.0 HPI History of Present Illness Deven Brennan is a 66 year old male with past medical history of coronary artery disease and hypertension has been having worsening chest pain symptoms. Also feels short of breath. He had NSTEMI few months ago at which time he coronary angiogram was not performed because of renal function. Plan for a coronary angiogram with possible percutaneous coronary intervention. Review of Systems Const: Reports: fatigue Card: Reports: chest pain, swelling of feet/ankles and dyspnea on exertion; Denies: palpitations, lightheadedness or orthopnea Resp: Denies: dyspnea, productive cough or non-productive cough Musc: Denies: neck pain or back pain Neuro: Denies: headache(s) or dizziness Psych: Denies: anxiety, depression, suicidal ideation or homicidal ideation Kemal/Lymph: Reports: easy bruising and easy bleeding Home Meds/Allergies Home Medications and Allergies Home Medications Medication Instructions Recorded Confirmed Type atorvastatin 80 mg tablet (Lipitor) 40 mg PO DAILY 08/11/20 07/14/21 History multivitamin 1 tab PO DAILY 08/11/20 07/14/21 History omega-3 fatty acids 1,000 mg 1,000 mg PO DAILY 08/11/20 07/14/21 History capsule (Fish Oil Concentrate) Prilosec OTC 20 mg PO DAILY 08/24/20 07/14/21 History potassium chloride 10 mEq 10 meq PO DAILY 09/09/20 07/14/21 History tablet,extended release clopidogrel 75 mg tablet 75 mg PO DAILY 10/07/20 07/14/21 History isosorbide mononitrate 30 mg 30 mg PO DAILY 10/07/20 07/14/21 History tablet,extended release 24 hr nitroglycerin 0.4 mg sublingual 0.4 mg SUBLINGUAL Q5M PRN 10/07/20 07/14/21 History tablet (Nitrostat) gabapentin 100 mg capsule 300 mg PO .hs cap 01/04/21 07/14/21 History sennosides 8.6 mg capsule (senna) 8.6 mg PO DAILY PRN 01/04/21 07/14/21 History meloxicam 15 mg tablet 15 mg PO DIRECTED tab 05/09/22 05/18/22 History Allergies Allergy/AdvReac Type Severity Reaction Status Date / Time rosuvastatin [From Crestor] Allergy Unknown unknown Verified 07/14/21 10: simvastatin [From Zocor] Allergy unknown Verified 07/14/21 10:29 PFSH Acute PFSH: Medical History Atherosclerotic heart disease of [place] coronary artery without angina pectoris CAD (coronary artery disease) Diastolic CHF, chronic Dyshidrosis History of heart attack 2008 Stress test in 2019 Hyperlipidemia Hypertension Morbid obesity Systolic CHF Surgical History History of coronary artery stent placement History of lumbar surgery Family History Father , AT AGE 69 CAD (coronary artery disease) Mother , AT AGE 66 Renal cell carcinoma Social History Smoking and tobacco status: former smoker (chewing tobacco) Alcohol intake: current Marital status: Current occupational status: employed History of recent travel: No Vitals/I&O/Wt Last Vital Signs Temp 98.1 F 07/15/21 20:00 Pulse 66 07/16/21 06:00 Resp 2 L 07/16/21 03:00 BP 137/86 07/16/21 04:00 Pulse Ox 92 07/16/21 04:00 07/15/21 07/16/21 07/16/21 22:59 06:59 14:59 Intake Total 720 / 960 120 / 1080 Output Total 850 / 1175 650 / 1825 Balance -130 / -215 -530 / -745 Weight last 48 hrs Weight 219 lb Physical Exam Narrative: GENERAL: Patient is alert, awake and oriented x3. [] NECK: No jugular vein distension. [] HEENT: No cyanosis. No icterus. No pallor. [] HEART: Regular S1 and S2. No murmur, rub or gallop. [] LUNGS: Clear to auscultate bilaterally. [] ABDOMEN: Soft, nontender and nondistended. Positive bowel sounds. No guarding, rebound or tenderness. [] CENTRAL NERVOUS SYSTEM: Grossly nonfocal. [] EXTREMITIES: Lower extremities with 1+ edema bilaterally. Pulses palpable in the lower extremities, both dorsalis pedis and posterior tibial. [] Urinary Catheter Management: Haskins: Cath Placed During This Visit: no Hospital Course Hospital Course Deven Brennan is a 66 year old male with past medical history of coronary artery disease and hypertension has been having worsening chest pain symptoms. Also feels short of breath. He had NSTEMI few months ago at which time he coronary angiogram was not performed because of renal function. Patient to 1. Coronary angiogram that showed severe [place] three-vessel disease with in-s tent restenosis of RCA, severe proximal left circumflex artery and severe heavily calcified mid LAD stenosis. He underwent successful revascularization of RCA with balloon angioplasty. He also underwent successful revascularization of left circumflex artery with PCI with KYAW x1. We attempted PCI of LAD however it was heavily calcified lesion and stent could not be advanced. We stopped at this time and will staged LAD PCI with arthrectomy. Patient had occasional PVCs and nonsustained VT episodes. Echocardiogram was performed that showed mild to moderately reduced EF of 40 to 45%. Patient was put on event monitor and was discharged in a stable condition with the plan for staged PCI of LAD. SSS Data Data Completed and Pending: Pending at discharge Category Date Time Status COMPUTATIONAL THEORY SCIENTIST request for service Routin e Exams 07/15/21 09:00 Taken CV. echo complete * [id number] Routine Ultrasound 07/16/21 08:23 Ordered Discharge Plan Discharge Patient Disposition: Home Prescriptions: Continued atorvastatin [Lipitor] 80 mg tablet 40 mg PO DAILY 0RF omega-3 fatty acids [Fish Oil Concentrate] 1,000 mg capsule 1,000 mg PO DAILY 0RF multivitamin Tablet 1 tab PO DAILY 0RF clopidogrel 75 mg tablet 75 mg PO DAILY 0RF isosorbide mononitrate 30 mg tablet extended release 24 hr 30 mg PO DAILY 0RF nitroglycerin [Nitrostat] 0.4 mg tablet, sublingual 0.4 mg sublingual Q5M PRN (Reason: CP) 0RF Rx Instructions: do not exceed 3 doses per episode metoprolol succinate 50 mg tablet extended release 24 hr 50 mg PO DAILY Qty: 90 4RF meloxicam 15 mg tablet 15 mg PO DIRECTED 0RF Rx Instructions: Take 1 tab on Mon., Wed., Fri. senna 8.6 mg capsule 8.6 mg PO DAILY PRN (Reason: Constipation) 0RF lisinopril 20 mg tablet 20 mg PO BID Qty: 180 3RF Prilosec OTC 20 mg PO DAILY 0RF gabapentin 100 mg capsule 300 mg PO .hs 0RF potassium chloride 10 mEq Tablet Extended Release 10 meq PO DAILY 0RF aspirin 81 mg Tablet,Delayed Release (Dr/Ec) 81 mg PO DAILY 30 Days Qty: 30 2RF tamsulosin 0.4 mg capsule 0.4 mg PO DAILY 30 Days Qty: 30 2RF Discharge Orders: Discharge Order (Routine); Ordered 07/16/21 Ordered By: Samy Lovelace Referrals: Samy Lovelace M.D [Physician] - (You have a follow up appointment on September 14 at 3:45pm If you are unable to keep your follow up appiontment please contact the office to arrange your follow up care.) Yolanda Sellers FNP [Nurse Practitioner] - (You have a follow up appointment on July 27 at 10:45am If you are unable to keep your follow up appiontment please contact the office to arrange your follow up care.) Diet: Cardiac Activity: Increase activity as tolerated Patient Instructions: Coronary Angioplasty (DC), Post Angiogram Home Care Instructions Activity Restrictions/Additional Instructions: Please do not lift more than 5 pounds of weight for the next 5 days Discharge Date/Time: 07/16/21 10:11 Attestations Medical Necessity Statement*: Care not expected to cross 2 midnights. Patient underwent outpatient coronary angiogram and PCI. Time Spent in Patient Care*: greater than 30 min Quality Metrics Clinical Quality Measures: [ No reported AMI, CVA or VTE this stay ] Coding Level of Care Code Acute Deliverer Merchandise for Riya Cowart
[2021-07-16] MEDS: tamsulosin 0.4 mg Capsule PO (08:53)
[2021-07-16] MEDS: clopidogrel 75 mg Tablet PO (08:54)
[2021-07-16] MEDS: lisinopril 20 mg Tablet PO (08:54)
[2021-07-16] MEDS: atorvastatin 40 mg Tablet PO (08:54)
[2021-07-16] MEDS: aspirin 81 mg EC Tablet PO (08:54)
[2021-07-16] MEDS: potassium chloride ER 10 mEq Tablet PO (08:54)
[2021-07-16] MEDS: isosorbide mononitrate ER 30 mg Tablet PO (08:54)
[2021-07-16] MEDS: metoprolol succinate ER (24 HR) 50 mg Tablet PO (08:54)
--- NOTE | 2021-07-16 10:10 | PC.NURSE ---
Discharge Note Patient discharged to Heart care services via wheel chair accompanied by self. Discharge instructions reviewed with patient and/or personal service representative. Mobile pharmacy medications and/or prescriptions provided. Belongings/home medications returned.
== END 2021-07-16 10:11 | disposition home or self-care (01) ==
LOC: CCL 09:03 → CSU 11:37
PROVIDERS: PCP Emergency Medicine Emergency Medical Services; Visit Provider Internal Medicine
DX: I25.110 Atherosclerotic heart disease of native coronary artery with unstable angina pectoris (principal); I11.0 Hypertensive heart disease with heart failure; I50.42 Chronic combined systolic (congestive) and diastolic (congestive) heart failure; I25.2 Old myocardial infarction; E78.5 Hyperlipidemia, unspecified; E66.01 Morbid (severe) obesity due to excess calories; Z68.35 Body mass index [BMI] 35.0-35.9, adult; Z87.891 Personal history of nicotine dependence
CPT/HCPCS: 36415; 80048; 85025; 85347; 92920; 92921; 93005; 93306; 93454; 96360; 99152; 99153; C1725; C1769; C1874; C1887; C1894; C9600; J1644; J2250; J3010; J3490; J7030; Q0163; Q9967

== ENCOUNTER → 2021-07-16 10:17 | Outpatient (BNVA) | payer OTHER, SELFPAY | PROVIDERS: PCP Emergency Medicine Emergency Medical Services | DX: R00.2 Palpitations (principal); R00.1 Bradycardia, unspecified; R00.0 Tachycardia, unspecified | CPT/HCPCS: 93229 ==

== ENCOUNTER → 2021-07-27 10:26 | Outpatient (BNVA) | payer OTHER, SELFPAY | PROVIDERS: PCP Emergency Medicine Emergency Medical Services; Visit Provider Nurse Practitioner Family | DX: I25.10 Atherosclerotic heart disease of native coronary artery without angina pectoris (principal); Z98.61 Coronary angioplasty status; R00.8 Other abnormalities of heart beat; Z87.891 Personal history of nicotine dependence | CPT/HCPCS: 80048; 99213; 99214 ==

== ENCOUNTER 2021-08-04 05:54 | Outpatient (CLI) | payer OTHER, SELFPAY ==
[2021-08-04] VITALS (43 sets, daily range): BP systolic 101–162; BP diastolic 52–90; PULSE 40–92; RESP 14–24; TEMP 36.7–36.8; O2SAT 95–99; BMI 35.3
--- NOTE | 2021-08-04 06:00 | XACV_ITS ---
Exam Room: 2 Ht: 168 cm Wt: 99 kg BSA: 2.19 m2 Gender: Male : 1955 Any Known Allergies: Other Exam Priority: Routine Procedure(s): Procedure Description: Diagnostic procedure Procedure Description: PCI procedure Procedure Description: Drug Eluting Coronary Stent Procedure Description: PTCA Procedure Description: Coronary Atherectomy Procedure Description: Cutting Balloon Procedure Description: Miscellaneous Procedure Description: ACT Procedure Description: Coronary Angiography Diagnostic Cath Status: Elective Diagnostic Findings * Circumflex has patent stent. * Right Coronary Artery was not injected. * Proximal to Mid Left Anterior Descending: significant 80% stenosis, CARIDAD: 3 flow. Severely calcified LAD stenosis. * INDICATION: 66 year old male with past medical history of coronary artery disease and hypertension who has been having worsening chest pain symptoms underwent coronary angiogram on 07/15/2021 which showed severe in-stent restenosis of RCA that underwent successful balloon angioplasty and PCI of left circumflex artery. Proximal to mid LAD had heavily calcified stenosis that did not expand with balloon angioplasty and patient was planned to undergo staged PCI with orbital arthrectomy. Patient is here for staged procedure today. * This was a staged PCI of proximal to mid LAD. For full diagnostic procedure report, please refer to report from 07/15/2021. * Left Main has no disease. * Coronary angiography shows right dominance. PCI Status: Elective PCI Indication: Staged PCI Interventional Findings * PROCEDURE DETAIL: We engaged left main artery with XB 3.5 guide catheter. Viper wire was used to cross the LAD stenosis. We performed orbital arthrectomy of proximal to mid LAD stenosis. This was followed by balloon angioplasty with score flex Cutting Balloon measuring 3.5 x 15 mm. This was followed by placement of 3.0 x 30 mm resolute [place] drug-eluting stent. We then postdilated the stent with 3.5 x 12 mm NC balloon. This expanded the stent well. At this time final angiogram showed excellent stent expansion, no residual stenosis and CARIDAD-3 flow. Patient left the Roofer Apprentice in a stable condition.. * Mid Left Anterior Descendin% stenosis treated with a Scoreflex Scoring Catheter, Scoreflex Scoring Catheter 3.5.15mm, MDT R MATTHIAS 3.0X30 KYAW, and MDT ESTELLA EUPHORA RX [id number] BALLOON. 0% residual stenosis, CARIDAD: 3 flow. Conclusions 1. Severe proximal to mid 2. LAD 3. heavily calcified stenosis status post successful revascularization with orbital arthrectomy and KYAW x1.. 4. Mid Left Anterior Descending was treated with a Balloon, Balloon, Drug Eluting Stent, and Balloon. Recommendations * Aspirin and Plavix for at least 1 year. * High intensity statin therapy. * Outpatient cardiology follow-up in 4 weeks. Interventional RX Recommendation: PCI w/o planned CABG Diagnostic RX Recommendation: PCI w/o planned CABG Pressures Phase:Rest AO : 133 / 83 ( 106 ) @ 9:07:00 AM 104 / 70 ( 85 ) @ 9:26:00 AM 97 / 65 ( 81 ) @ 9:48:00 AM 96 / 66 ( 81 ) @ 9:53:00 AM 103 / 69 ( 85 ) @ 9:54:00 AM Clinical Evaluation EBL: 5mL-10mL Procedural Details Procedure Consent Obtained. Admit Source: Out Patient. Pre-Procedure Time Out. Identified patient by full name and date of as verbalized by the patient/guarantor. Does the consent match the physician's order: Yes. Accurate & Complete Informed Consent: Yes. Inpatient/Outpatient History & Physical on Chart: Yes. If H&P is completed, is and addenduem needed: N/A; If yes, is the addendum complete: N/A. Visualize and Verify Site with Patient/Guarantor: N/A. Relevant Radiology Images available: N/A. Pre-op teaching completed and patient verbalized understanding. The risks, benefits, and alternatives of sedation and/or procedure were discussed by physician. The patient agrees to continue. Procedure started. [facility] Clinical Fraility Score: 3: Managing Well. Roofer Apprentice Indications: Stable Known CAD. Chest Pain Symptom Assessment: Atypical Angina. Correct patient, site and procedure confirmed by cath team. Current diagnosis: Chest Pain. PERRLA. Strong, equal hand dining car steward bilaterally. Lungs clear x 5 lobes. IV Site on Arrival: 20 gauge in the left anticubital. IV Fluids: 0.9% NaCl at KVO. 0 mL infused prior to laboratory asst. Pre Procedural Pulses: bilateral dorsalis pedis was 3+. Pre Procedural Pulses: bilateral posterior tibial was 3+. Oxygen started at 2liters/min via nasal canula. right groin was prepped with chloroprep then draped in the usual sterile fashion. left groin was prepped with chloroprep then draped in the usual sterile fashion. Baseline sample Acquired. HR: 58 BPM. Physician notified. Physician arrived. Physician scrubbed in. Immediate Pre-Procedure Time Out. Correct Patient: Yes; Correct Procedure: Yes; Correct Site: Yes; Correct Patient Position: Yes; Correct Supplies: Yes; Dried Flammable Prep: Yes; Blood Products Available: n/a. Lidocaine 1% infiltrated to the right groin. Arterial access obtained with micropuncture set. 6 [place] XB 3.5 guide catheter was inserted over the wire. Viperwire was advanced through the guide catheter to lesion in the mid LAD. Diamondback 1.25, coronary atherectomy device, inserted and positioned to the Mid LAD. ACT drawn. Results 322 seconds. Therapeutic limits - pre-heparin administration 90-150 seconds and monitoring heparin during a vascular procedure >250 seconds. Orbital atherectomy performed at this time to Mid LAD. Diamondback atherectomy device removed over the viperwire. Teleport microcatheter inserted to the Mid LAD. Viperwire removed. Runthrough guidewire was advanced through the guide catheter to lesion in the mid LAD. Teleport catheter removed over the Runthrough wire. Results checked. Inflation number : 1 A Scoreflex Scoring Catheter 3.0 x 15 was prepped and advanced across the Mid LAD , then inflated to 12 EITAN for 0:28 seconds. Inflation number: 2 The Scoreflex Scoring Catheter 3.0 x 15 was reinflated across the Mid LAD, to 12 EITAN for 0:22 seconds. Inflation number: 3 The Scoreflex Scoring Catheter 3.0 x 15 was reinflated across the Mid LAD, to 12 EITAN for 0:18 seconds. Inflation number: 4 The Scoreflex Scoring Catheter 3.0 x 15 was reinflated across the Mid LAD, to 15 EITAN for 0:30 seconds. Inflation number : 5 A Scoreflex Scoring Catheter 3.5.15mm was prepped and advanced across the Mid LAD , then inflated to 10 EITAN for 0:26 seconds. Inflation number: 6 The Scoreflex Scoring Catheter 3.5.15mm was reinflated across the Mid LAD, to 12 EITAN for 0:27 seconds. Inflation number: 7 The Scoreflex Scoring Catheter 3.5.15mm was reinflated across the Mid LAD, to 0 EITAN for 0:15 seconds. ACT drawn. Results 268 seconds. Therapeutic limits - pre-heparin administration 90-150 seconds and monitoring heparin during a vascular procedure >250 seconds. Balloon out. Scoreflex scoring catheter inserted over the wire to the mid LAD. Scoring catheter removed over the wire. Scoreflex scoring catheter inserted over the wire and advanced to the Mid LAD. Stent inserted to lesion in the mid LAD. Inflation Number : 8 A MDT R MATTHIAS 3.0X30 KYAW -Lot Number# [id number] Exp 02/29/2024 was prepped and advanced across the Mid LAD. The stent was deployed at 12 EITAN for 0:30 seconds. Stent balloon out over wire. Balloon inserted to lesion in the mid LAD. Inflation number : 9 A MDT NC EUPHORA RX [id number] BALLOON was prepped and advanced across the Mid LAD , then inflated to 20 EITAN for 0:33 seconds. Inflation number: 10 The MDT NC EUPHORA RX [id number] BALLOON was reinflated across the Mid LAD, to 20 EITAN for 0:23 seconds. Balloon out. Results checked. Wire out. ACT drawn. Results 331 seconds. Therapeutic limits - pre-heparin administration 90-150 seconds and monitoring heparin during a vascular procedure >250 seconds. A Right femoral angiogram was performed to determine safe placement of closure device. Lidocaine 1% infiltrated to the right groin. A Angio-Seal VIP ([place]) was successful obtaining hemostatsis at the Right Femoral artery insertion site. Lot number [id number] exp 05/27/2022. Angioseal placed without complications. No signs or symptoms of hematoma noted. Sterile dressing applied per usual sterile fashion. Post Procedure: Pulses reassessed and unchanged. PERRLA. Strong, equal hand dining car steward bilaterally. No VTE prophylaxis required. Medication's Wasted: Nitro = 49.8 mg. Post-op diagnosis: Severe Mid LAD stenosis, S/P stenting with KYAW x1. Complications: none. Estimated blood loss: 5mL-10mL. Total IV fluids: 100 mL. Responsiveness - Normal response to verbal stimuli; alert and oriented, PERRLA. Airway - Unaffected, no intervention required; spontaneous ventilation. Circulation: W/N/L, pulses unchanged. Nausea/Vomiting: No. Procedure completed. Patient transferred by bed to 1st floor. Vital chart was stopped. Access Site Site: Right Femoral artery Sheath Size: 6 Fr Hemostasis Method: Angio-Seal VIP ([place]) Hemostasis Success: Successful Procedure Medications Start: 7:49 AM Stop: 7:49 AM Medication: Versed Amount: 1 mg Route: I.V. Start: 7:49 AM Stop: 7:49 AM Medication: Fentanyl Amount: 50 mcg Route: I.V. Start: 7:50 AM Stop: 7:50 AM Medication: 0.9% Saline Amount: 75 ml/hr Route: I.V. drip Start: 7:58 AM Stop: 7:58 AM Medication: Versed Amount: 1 mg Route: I.V. Start: 8:04 AM Stop: 8:04 AM Medication: Heparin Amount: 9000 units Route: I.V. Start: 8:15 AM Stop: 8:15 AM Medication: Fentanyl Amount: 50 mcg Route: I.V. Start: 8:27 AM Stop: 8:27 AM Medication: Heparin Amount: 1000 units Route: I.V. Start: 8:33 AM Stop: 8:33 AM Medication: Versed Amount: 1 mg Route: I.V. Start: 8:37 AM Stop: 8:37 AM Medication: Fentanyl Amount: 25 mcg Route: I.V. Start: 8:57 AM Stop: 8:57 AM Medication: Fentanyl Amount: 25 mcg Route: I.V. Start: 8:58 AM Stop: 8:58 AM Medication: Versed Amount: 1 mg Route: I.V. Start: 8:02 AM Stop: 8:02 AM Medication: Nitrogylcerin Amount: 200 mcg Route: I.A. Start: 9:03 AM Stop: 9:03 AM Medication: Heparin Amount: 1000 units Route: I.V. I, the attending physician, have reviewed and verified all procedure medications. Yes, all medications given per verbal order History/Risk Factors Hypertension: Yes Dyslipidemia: Yes Peripheral Arterial Disease (PAD): No Myocardial Infarction (WA): No Obesity: No Renal Disease: No Tobacco Use: Former Prior Interventions PCI: No CABG: No Valve Surgery: No Report Signatures Finalized by Samy Lovelace MD on 08/14/2021 11:08 PM
[2021-08-04] MEDS: diphenhydrAMINE 50 mg Capsule PO (06:29)
[2021-08-04 06:32] LABS: Basophils % 0.6 %; Eosinophils # 0.2 10^3/uL (0.0-0.8); Eosinophils % 3.9 %; Hematocrit 42.2 % (42.0-52.0); Lymphocytes % 37.2 %; Mean Corpuscular HGB Conc 33.2 g/dL (30.0-36.0); Mean Corpuscular Hemoglobin 32.1 pg (28.0-34.0); Mean Corpuscular Volume 96.8 fl (80-94); Mean Platelet Volume 11.2 fL (7.4-10.4); Monocytes # 0.5 10^3/uL (0.2-0.9); Monocytes % 9.6 %; Neutrophils # 2.58 10^3/uL (1.8-7.7); Neutrophils % 48.5 %; Nucleated Red Blood Cells % 0 %; Platelet Count 159 10^3/cmm (130-400); Red Blood Count 4.36 10^6/uL (4.1-5.3); White Blood Count 5.3 10^3/uL (4.0-10.0)
[2021-08-04 06:52] LABS: INR 1.03 (0.8-1.2)
[2021-08-04 07:07] LABS: Anion Gap 14.2 (5-19); Blood Urea Nitrogen 25 mg/dL (8-23); Calcium 9.3 mg/dL (8.5-10.5); Carbon Dioxide 22 mmol/L (22-29); Chloride 108 mmol/L (98-107); Glomerular Filtration Rate 83.9 mL/min (90-130); Glucose 92 mg/dL (65-115); Osmolality Calculated 294 mOsm/kg (285-295); Potassium 4.2 mmol/L (3.5-5.1); Sodium 140 mmol/L (136-145)
--- NOTE | 2021-08-04 07:52 | W.PM.OPSUD ---
Surgery/Procedure H&P Update DATE OF PROCEDURE: August 04, 2021 DATE H&P PERFORMED: 07/27/21 H&P UPDATE INFORMATION: I have reviewed H&P completed within last 30 days, I have examined patient prior to procedure and No changes to prior documentation PREOP DIAGNOSIS: Staged PCI of LAD with arthrectomy PRIMARY INDICATION FOR PROCEDURE: Staged PCI of LAD with arthrectomy PLANNED PROCEDURE: Operation Date: 08/04/21 07:00 Proposed Procedures p Cardiac Catheterization(Left) - Samy Lovelace M.D Staged PCI of mid LAD PATIENT REASSESSED PRIOR TO SEDATION, WITH NO CHANGE NOTED: Yes PHYSICAL EXAM: alert, oriented x 3, clear to auscultation bilaterally and regular rate & rhythm AIRWAY EVAL/ANESTHESIA PLAN: ASA III, Local Anesthesia, Risks, benefits & alternatives of sedation and/or procedure discussed and Patient agrees to continue as planned ADDITIONAL INFORMATION: Moderate sedation
--- NOTE | 2021-08-04 09:34 | PC.NURSE ---
received from cardiac central lab technician at 0915 via bed.report received.pt is alert and awake and oriented x 4.denies pain at present.sr with freq pvc's on monitor.right groin with drsg dry and intact (angioseal in central lab technician).no hematoma noted.palpable right dp pulse .right leg is warm and dry to touch.instructed in activity restrictions s/p femoral artery procedure...and instructed to notify staff for any bleeding,numbness,pain,sob..or for any concerns at all.pt verb understanding of instructions.
[2021-08-04] MEDS: acetaminophen 325 mg Tablet 650 MG PO (11:05)
[2021-08-04] MEDS: lisinopril 20 mg Tablet PO (17:28)
--- NOTE | 2021-08-04 18:40 | PC.NURSE ---
right groin drsg remains dry and intact.no hematoma formation noted
[2021-08-04] MEDS: gabapentin 300 mg Capsule PO (21:49)
[2021-08-05 06:00] VITALS: PULSE 88
[2021-08-05] MEDS: metoprolol succinate ER (24 HR) 50 mg Tablet PO (08:03)
[2021-08-05] MEDS: atorvastatin 40 mg Tablet PO (08:03)
[2021-08-05] MEDS: tamsulosin 0.4 mg Capsule PO (08:03)
[2021-08-05] MEDS: clopidogrel 75 mg Tablet PO (08:04)
[2021-08-05] MEDS: aspirin 81 mg EC Tablet PO (08:04)
[2021-08-05] MEDS: lisinopril 20 mg Tablet PO (08:04)
[2021-08-05] MEDS: isosorbide mononitrate ER 30 mg Tablet PO (08:04)
--- NOTE | 2021-08-05 09:12 | P.SS_ITS ---
Short Stay Summary Providers Date of Admit/Discharge: 08/04/21 Attending Provider: Samy Lovelace M.D Primary Care Provider: Richard Forde DO Chief Complaint: [id number] [id number]. Staged PCI of LAD with arthrectomy HPI History of Present Illness Deven Brennan is a 66 year old male with past medical history of coronary artery disease and hypertension who has been having worsening chest pain symptoms underwent coronary angiogram on 07/15/2021 which showed severe in-stent restenosis of RCA that underwent successful balloon angioplasty and PCI of left circumflex artery. Proximal to mid LAD had heavily calcified stenosis that did not expand with balloon angioplasty and patient was planned to undergo staged PCI with orbital arthrectomy. Patient is here for staged procedure today. Review of Systems Const: Reports: fatigue; Denies: fever(s), chills, change in weight or diaphoresis Eyes: Denies: change in vision, blurry vision or eye redness ENMT: Denies: throat pain, odynophagia, mouth pain or epistaxis Card: Denies: chest pain, palpitations, irregular heart rhythm, edema, lightheadedness, syncope, pre-syncope, dyspnea on exertion, orthopnea or leg pain with exertion Resp: Denies: dyspnea, productive cough or wheezing GI: Denies: nausea, vomiting, hematemesis, heartburn, hematochezia or melena : Denies: hematuria Musc: Denies: extremity swelling or joint pain Skin/Breast: Denies: rash, pruritus, erythema or new lesions Neuro: Reports: weakness in extremities; Denies: headache(s), numbness in extremities, sensory changes, frequent falls, dizziness, Slurred speech present or difficulty communicating thoughts Psych: Denies: anxiety, depression, irritability, suicidal ideation or homicidal ideation Endo: Denies: polyuria, polydipsia or excessive sweating Kemal/Lymph: Denies: easy bruising or easy bleeding Home Meds/Allergies Home Medications and Allergies Home Medications Medication Instructions Recorded Confirmed Type atorvastatin 80 mg tablet (Lipitor) 40 mg PO DAILY 08/11/20 08/04/21 History multivitamin 1 tab PO DAILY 08/11/20 08/04/21 History omega-3 fatty acids 1,000 mg 1,000 mg PO DAILY 08/11/20 08/03/21 History capsule (Fish Oil Concentrate) Prilosec OTC 20 mg PO DAILY 08/24/20 08/03/21 History potassium chloride 10 mEq 10 meq PO DAILY 09/09/20 08/04/21 History tablet,extended release clopidogrel 75 mg tablet 75 mg PO DAILY 10/07/20 08/03/21 History isosorbide mononitrate 30 mg 30 mg PO DAILY 10/07/20 08/03/21 History tablet,extended release 24 hr nitroglycerin 0.4 mg sublingual 0.4 mg SUBLINGUAL Q5M PRN 10/07/20 08/03/21 History tablet (Nitrostat) gabapentin 100 mg capsule 300 mg PO .hs cap 01/04/21 08/04/21 History sennosides 8.6 mg capsule (senna) 8.6 mg PO DAILY PRN 01/04/21 08/04/21 History meloxicam 15 mg tablet 15 mg PO DIRECTED tab 07/05/21 08/03/21 History Allergies Allergy/AdvReac Type Severity Reaction Status Date / Time rosuvastatin [From Crestor] Allergy Unknown unknown Verified 07/27/21 08:57 simvastatin [From Zocor] Allergy unknown Verified 07/27/21 08:57 PFSH Acute PFSH: Medical History Atherosclerotic heart disease of [place] coronary artery without angina pectoris CAD (coronary artery disease) Diastolic CHF, chronic Dyshidrosis History of heart attack 2008 Stress test in 2019 Hyperlipidemia Hypertension Morbid obesity Systolic CHF Surgical History History of coronary artery stent placement History of lumbar surgery Family History Father , AT AGE 69 CAD (coronary artery disease) Mother , AT AGE 66 Renal cell carcinoma Social History Smoking and tobacco status: former smoker (chewing tobacco) Alcohol intake: current Marital status: Current occupational status: employed History of recent travel: No Vitals/I&O/Wt Last Vital Signs Temp 98.2 F 08/04/21 23:39 Pulse 88 08/05/21 06:00 Resp 16 08/04/21 23:39 BP 154/63 08/04/21 23:39 Pulse Ox 97 08/04/21 23:39 08/04/21 08/05/21 08/05/21 22:59 06:59 14:59 Intake Total 0 / 600 0 / 600 Output Total 700 / 1700 Balance -700 / -1100 0 / -1100 Weight last 48 hrs Weight 219 lb Physical Exam Narrative: GENERAL: Patient is alert, awake and oriented x3. [] NECK: No jugular vein distension. [] HEENT: No cyanosis. No icterus. No pallor. [] HEART: Regular S1 and S2. No murmur, rub or gallop. [] LUNGS: Clear to auscultate bilaterally. [] ABDOMEN: Soft, nontender and nondistended. Positive bowel sounds. No guarding, rebound or tenderness. [] CENTRAL NERVOUS SYSTEM: Grossly nonfocal. [] EXTREMITIES: Lower extremities with 1+ edema bilaterally. Pulses palpable in the lower extremities, both dorsalis pedis and posterior tibial. [] Urinary Catheter Management: Haskins: Cath Placed During This Visit: no Hospital Course Hospital Course 66 year old male with past medical history of coronary artery disease and hypertension who has been having worsening chest pain symptoms underwent coronary angiogram on 07/15/2021 which showed severe in-stent restenosis of RCA that underwent successful balloon angioplasty and PCI of left circumflex artery. Proximal to mid LAD had heavily calcified stenosis that did not expand with balloon angioplasty and patient was planned to undergo staged PCI with orbital arthrectomy. Patient underwent successful revascularization with orbital arthrectomy and KYAW x1. Stent expansion was excellent. Patient was observed overnight and did well. He was discharged home in a stable condition with outpatient cardiology follow-up. SSS Data Data Completed and Pending: Pending at discharge Category Date Time Status STRATEGIC DEBRIEFING SPECIALIST request for service Routin e Exams 08/04/21 06:00 Taken Discharge Plan Discharge Patient Disposition: Home Prescriptions: Continued atorvastatin [Lipitor] 80 mg tablet 40 mg PO DAILY 0RF omega-3 fatty acids [Fish Oil Concentrate] 1,000 mg capsule 1,000 mg PO DAILY 0RF multivitamin Tablet 1 tab PO DAILY 0RF clopidogrel 75 mg tablet 75 mg PO DAILY 0RF isosorbide mononitrate 30 mg tablet extended release 24 hr 30 mg PO DAILY 0RF nitroglycerin [Nitrostat] 0.4 mg tablet, sublingual 0.4 mg sublingual Q5M PRN (Reason: CP) 0RF Rx Instructions: do not exceed 3 doses per episode metoprolol succinate 50 mg tablet extended release 24 hr 50 mg PO DAILY Qty: 90 4RF meloxicam 15 mg tablet 15 mg PO DIRECTED 0RF Rx Instructions: Take 1 tab on Mon., Wed., Fri. senna 8.6 mg capsule 8.6 mg PO DAILY PRN (Reason: Constipation) 0RF lisinopril 20 mg tablet 20 mg PO BID Qty: 180 3RF Prilosec OTC 20 mg PO DAILY 0RF gabapentin 100 mg capsule 300 mg PO .hs 0RF potassium chloride 10 mEq Tablet Extended Release 10 meq PO DAILY 0RF aspirin 81 mg Tablet,Delayed Release (Dr/Ec) 81 mg PO DAILY 30 Days Qty: 30 2RF tamsulosin 0.4 mg capsule 0.4 mg PO DAILY 30 Days Qty: 30 2RF Discharge Orders: Discharge Order (Routine); Ordered 08/05/21 Ordered By: Samy Lovelace Referrals: Yolanda Sellers FNP [Nurse Practitioner] - 08/16/21 9:45 am Diet: Cardiac Activity: Increase activity as tolerated Patient Instructions: Heart Attack (DC), Coronary Angioplasty (DC), Opioid Safety, Post Angiogram Home Care Instructions Activity Restrictions/Additional Instructions: Please do not lift more than 5 pounds of weight for the next 5 days Discharge Date/Time: 08/05/21 10:21 Attestations Medical Necessity Statement*: Care not expected to cross 2 midnights. Patient had presented for staged PCI of proximal to mid LAD and stayed overnight postprocedure for observation. Time Spent in Patient Care*: greater than 30 min Quality Metrics Clinical Quality Measures: [ No reported AMI, CVA or VTE this stay ] Coding Level of Care Code Acute Drawer In Hand for Riya Cowart
== END 2021-08-05 10:21 | disposition home or self-care (01) ==
LOC: CCL 05:55 → CSU 09:33 → MEDSURG 08-05 09:12 → CSU 08-05 09:16 → MEDSURG 08-05 09:17
PROVIDERS: PCP Emergency Medicine Emergency Medical Services; Visit Provider Internal Medicine
DX: I25.110 Atherosclerotic heart disease of native coronary artery with unstable angina pectoris (principal); Z79.82 Long term (current) use of aspirin; I11.0 Hypertensive heart disease with heart failure; I50.40 Unspecified combined systolic (congestive) and diastolic (congestive) heart failure; Z95.5 Presence of coronary angioplasty implant and graft; E78.5 Hyperlipidemia, unspecified; I25.2 Old myocardial infarction; E66.01 Morbid (severe) obesity due to excess calories; Z68.35 Body mass index [BMI] 35.0-35.9, adult
CPT/HCPCS: 36415; 80048; 85025; 85347; 85610; 92924; 96360; 99152; 99153; C1724; C1725; C1760; C1769; C1874; C1887; C1894; C9600; J1644; J2250; J3010; J3490; Q0163; Q9967

== ENCOUNTER → 2021-08-16 09:24 | Outpatient (BNVA) | payer OTHER, SELFPAY | PROVIDERS: PCP Emergency Medicine Emergency Medical Services; Visit Provider Nurse Practitioner Family | DX: I25.10 Atherosclerotic heart disease of native coronary artery without angina pectoris (principal); I10 Essential (primary) hypertension; Z79.01 Long term (current) use of anticoagulants; Z87.891 Personal history of nicotine dependence | CPT/HCPCS: 80048; 85025; 85610; 99214 ==

== ENCOUNTER → 2021-09-14 15:37 | Outpatient (BNVA) | payer OTHER, SELFPAY | PROVIDERS: PCP Emergency Medicine Emergency Medical Services; Visit Provider Internal Medicine | DX: I11.0 Hypertensive heart disease with heart failure (principal); I50.22 Chronic systolic (congestive) heart failure; I25.10 Atherosclerotic heart disease of native coronary artery without angina pectoris | CPT/HCPCS: 99214 ==

== ENCOUNTER → 2022-03-17 13:49 | Outpatient (BNVA) | payer OTHER, SELFPAY | PROVIDERS: PCP Emergency Medicine Emergency Medical Services; Visit Provider Internal Medicine | DX: I11.0 Hypertensive heart disease with heart failure (principal); I50.22 Chronic systolic (congestive) heart failure; I25.10 Atherosclerotic heart disease of native coronary artery without angina pectoris; Z87.891 Personal history of nicotine dependence | CPT/HCPCS: 99214 ==